=== PATIENT | female | born 1955 | race Caucasian/White ===

== ENCOUNTER 2024-05-18 09:03 | Outpatient (AMB) | payer OTHER, SELFPAY ==
--- NOTE | 2024-05-18 09:09 | A.OFFVIS_ITS ---
Vital Signs 05/18/24 09:21 Height 5 ft 5 in Weight 176 lb BMI 29.3 BP 160/70 H Blood Pressure Location Lt brachial Position Sitting Pulse 59 Pulse Oximetry (%) 100 Oxygen Delivery Method Room Air Intake Visit Reasons: Colonoscopy Screening Intake Note: Patient new consult for EGD/Colonoscopy screening. Patient cc: acid reflex with burning sensation, denies any other GI issues. Patient have a really bad experience with her last Colonoscopy done at [facility]. years ago. Reference Investigator Required: No Accompanied by: Self / Same As Patient Allergies monosodium glutamate Allergy (Unknown, Verified 05/18/24 09:09) Unknown povidone-iodine [From Betadine] Allergy (Unknown, Verified 05/18/24 09:09) Unknown Sulfa (Sulfonamide Antibiotics) Allergy (Unknown, Verified 05/18/24 09:09) Unknown HPI HPI Colonoscopy Screening: Details: 69 ear old? female with past medical history of hypertension, GERD is here today for pre colonoscopy screening.? Patient was sent to us by her PCP.? Patient reports she had colonoscopy many years ago and it was done at [facility]. Patient states that she did not had a very good experience. Patient states that she was awake and was asking to put down during the procedure. P veronika was CHIKI it and she is very nervous about going back. Patient reports acid reflux occasionally. Trying to avoid dietary triggers.? Negative for history of sleep apnea.? Denies any history of cardiac, renal, pulmonary, or hepatic disease.?? No history of infectious? diseases like hepatitis A, B, C, HIV or tuberculosis.? Patient is not on any anticoagulation [facility] Medical History (Updated 05/18/24 @ 19:18 by Ene Bryant [facility]) GERD (gastroesophageal reflux disease) HTN (hypertension) Surgical History (Updated 05/18/24 @ 09:41 by Sandra Dalton) History of foot surgery Hx of hemorrhoidectomy Hx of ovarian cystectomy Hx of colonoscopy Family History (Updated 05/18/24 @ 09:43 by Sandra Dalton) Mother HTN (hypertension) Brother HTN (hypertension) Alcoholic Father HTN (hypertension) Colon cancer Social History (Updated 05/18/24 @ 09:44 by Sandra Dalton) Household Members: Spouse Alcohol intake: current Alcohol intake frequency: holidays/special occasions only Patient Tobacco Use Status: Never used Tobacco Review of Systems Const Denies weight gain and Denies weight loss ENT Reports no additional complaints, Denies dysphagia and Denies odynophagia Card Reports no additional complaints Resp Reports no additional complaints GI Reports abdominal pain (Epigastric), Denies belching, Denies melena, Reports bloating, Denies change in bowel habits, Denies dysphagia, Denies excessive flatus, Denies dyspepsia, Reports heartburn, Denies diarrhea, Denies loose stools, Denies nausea, Denies odynophagia and Denies vomiting Reports no additional complaints Musc Reports no additional complaints Neuro Reports no additional complaints Psych Reports no additional complaints Endo Reports no additional complaints Physical Exam Vital Signs: Last Vital Signs Pulse 59 05/18/24 09:21 BP 160/70 H 05/18/24 09:21 Pulse Ox 100 05/18/24 09:21 Oxygen Delivery Method Room Air 05/18/24 09:21 BMI result Body Mass Index 29.3 Const General: healthy appearing, no acute distress and well developed Nutritional Appearance: well nourished Orientation/consciousness: patient oriented x3 Resp Effort & Inspection: normal respiratory effort, able to speak in complete sentences, no tracheal deviation and symmetric chest movement Auscultation: clear to auscultation bilaterally Cardio Rate: regular rate GI Inspection: Yes normal to inspection and No distended Palpation (GI): Soft to palpation, not firm, nontender and No hepatosplenomegaly present Auscultation: normal bowel sounds General: Yes no CVA tenderness Back/Spine/Pelvis Back: no CVA tenderness Skin General skin exam: elasticity normal, turgor normal and dry skin Neuro General: patient oriented x3 Psych Appearance: grossly normal Mental Status: mental status grossly normal Judgement: Good judgement present (Psych) Assessment & Plan Assessment & Plan (1) Screen for colon cancer: Code(s): Z12.11 - Encounter for screening for malignant neoplasm of colon (2) GERD (gastroesophageal reflux disease): Code(s): K21.9 - Gastro-esophageal reflux disease without esophagitis Category: Medical Qualifiers: Esophagitis presence: esophagitis presence not specified Qualified Code(s): K21.9 - Gastro-esophageal reflux disease without esophagitis Plan Patient denies any cardiac or respiratory symptoms.? Patient reports epigastric pain postprandially, occasional bloating and acid reflux. Patient will be sent for upper endoscopy to rule out gastritis, duodenitis, Barretts, H pylori. Current patient is not taking anything except for occasional Tums. Denies any issues with anesthesia in the past, however experience from the past colonoscopy. Patient feels like she was not put under anesthesia correctly because she was awake and was in lot of pain during the procedure.? Denies any history of sleep apnea.? No history infectious diseases in the past or present.? Not on any anticoagulation therapy.? No family or personal history of colon cancer or polyps.? Patient denies melena, hematochezia, unintentional weight loss or ribbon like stools.? Discussed at length the pre-procedure,? prep, diet & medications as well as what to expect prior, during and after the procedure.?? Stressed the importance of good bowel prep.? Recommended the use of Vaseline or Calmoseptine OTC & baby wipes with bowel movements to promote comfort.? ?Patient verbalizes understanding and agrees to plan of care.? She was given the opportunity to ask questions and all questions answered.? We will see her after the procedure. Orders: Orders [place] upper GI w Ba Swallow Today K21.9 - Gastro-esophageal reflux disease without esophagitis Medications: New famotidine (Pepcid) 20 mg PO BEDTIME PRN 30 tabs 3RF acid reflux K21.9 - Gastro-esophageal reflux disease without esophagitis polyethylene glycol 3350 (Miralax) As directed by gastroenterology department at [facility] 238 grams PO ONCE 238 grams 0RF Z12.11 - Encounter for screening for malignant neoplasm of colon famotidine (Pepcid) 20 mg PO BEDTIME PRN 30 tabs 3RF acid reflux K21.9 - Gastro-esophageal reflux disease without esophagitis polyethylene glycol 3350 (Miralax) As directed by gastroenterology department at [facility] 238 grams PO ONCE 238 grams 0RF Z12.11 - Encounter for screening for malignant neoplasm of colon bisacodyl (Dulcolax (bisacodyl)) take 4 tabs at noon the day before your colonoscopy 20 mg (4 x 5 mg) PO ONCE 1 day 4 tabs 0RF constipation Z12.11 - Encounter for screening for malignant neoplasm of colon bisacodyl (Dulcolax (bisacodyl)) take 4 tabs at noon the day before your colonoscopy 20 mg (4 x 5 mg) PO ONCE 1 day 4 tabs 0RF constipation Z12.11 - Encounter for screening for malignant neoplasm of colon Coding Level of Care Code New Pt Level 3 (20107) Diagnoses Screen for colon cancer Z12.11 Gastroesophageal reflux disease, unspecified whether esophagitis present K21.9 Esophagitis presence: esophagitis presence not specified Time Spent (min) 40 Comment 30 minutes spent with patient and additional 10 minutes spent reviewing her records
--- OUTSIDE RECORDS SUMMARY | 2024-05-18 09:13 | XMS_ITS | Continuity of Care Document ---
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 Name Role Phone Rene [employer]IN[employer], Roxanne Canada Primary Care Physicia n Encounter [facility] Date(s): 03/29/24 - 04/28/24 [email or web address] [address] [place] [address]- Encounter Type: Triage Allergies, Adverse Reactions, Alerts Substance Criticality Severity Reaction Reaction Severity Status sulfa drugs stomach upset Acti ve Betadine Active MSG Active Immunizations Given and Recorded Vaccine Date Status Refusal Reason SARS-CoV-2(COVID-19)mRNA-LNP vac([id number]) 12/17/22 Recorded zoster vaccine, inactivated 08/26/22 Recorded zoster vaccine, inactivated 04/06/22 Recorded pneumococcal 20-valent conjugate vaccine 12/23/21 Recorded influenza virus vaccine, inactivated 12/20/21 Pino rded influenza virus vaccine, inactivated 02/03/21 Pino rded [id number] bivalent booster vax 12/05/21 Recorded SARS-CoV-2 (COVID-19) mRNA-1273 vaccine 06/27/21 R ecorded SARS-CoV-2 (COVID-19) mRNA-1273 vaccine 01/21/21 R ecorded Medications hydrochlorothiazide-lisinopril 25 mg-20 mg oral tablet 1 tablet, By Mouth, Daily, # 30 tablet, 0 Refills, Maintenance, 03/31/24 8:45:00 [id number], TAKE 1 TABLET BY MOUTH DAILY Start Date: 1/2/25 Status: Ordered Quantity: 30.0 Unit: tablet Repeat number: 1 Metoprolol Succinate ER 50 mg oral tablet, extended release 50 mg, 1, tablet, By Mouth, Daily, # 30 tablet, Refills 3, Tot. Refills 3, Maintenance, 01/05/24 6:46:00 AM EDT, Route to Pharmacy Electronically, [id number], Partial fill upon patient request if the prescription is for a schedule II opioid drug. Start Date: 01/05/24 Status: Ordered Quantity: 30.0 Unit: tablet Repeat number: 4 Xiidra 5% ophthalmic solution 1 drops, Eyes, Both, 2 times a day, # 60 each, 0 Refills, Maintenance, 11/24/23 10:47:00 AM EDT, Solution, Partial fill upon patient request if the prescription is for a schedule II opioid drug. Start Date: 11/24/23 Status: Ordered Quantity: 60.0 Unit: each Repeat number: 1 Social History Social History Type Response Smoking Status Never (less than 100 in lifetime) entered on: 11/24/23 Sex Sex Representation Female (finding) Patient Care team information Care Team Personnel Name: Rene HA, Roxanne Canada Position: [facility] Associate Professional Member Role: PCP Address: [address] [place] [address]- Telecom: Care Team Related Persons Name: JORGE JANSEN Insurance Providers Guarantor name: ADOLFO JUSTYNA Health Plan Information #: 1 [facility] Member Number: NA Policy Number: NA Group Number: NA
--- OUTSIDE RECORDS SUMMARY | 2024-05-18 09:14 | XMS_ITS | Data Portability ---
Author Organization [facility], [employer] Address [address] [place] [address] Assessment No assessment recorded. Plan of Treatment Reminders Order Date Submit Date Provider Last Modified By Organization Details Last Modified Time Details Appointments None recorded. Lab urinalysis , dipstick 2018 019 In-House Results, For Internal Use Only, Do Not Delete/merge, [id number] 9 12:20:56 vitamin D, 25-hydroxy , total, serum 2018 019 [facility], [address] [place], [address], 9 10:02:00 urinalysis , dipstick 2017 018 In-House Results, For Internal Use Only, Do Not Delete/merge, [id number] 8 11:29:45 pap, LB + reflex HR HPV (16+18+45) 2017 018 OPAL Not available 8 08:30:41 fecal occult blood, stool 2017 018 In-House Results, For Internal Use Only, Do Not Delete/merge, [id number] 8 11:05:11 CBC w/ auto diff 2017 018 [facility], [address] [place], [address], 8 07:39:16 CMP, serum or plasma 2017 018 [facility], [address] [place], [address], 8 07:39:16 TSH, serum or plasma 2017 018 [facility], [address] [place], [address], 8 07:39:17 lipid panel, serum 2017 018 [facility], [address] [place], [address], 8 07:39:15 vitamin D, 25-hydroxy , total, serum 2017 018 [facility], [address] [place], [address], 8 07:39:17 Referral colonoscop y referral 2017 018 [email or web address] Not available 8 11:49:[address]/dietiti an referral 2017 [email or web address] Not available 8 12:14:43 Procedures None recorded. Surgeries None recorded. Imaging electrocar diogram 2018 [place] In-House Results, For Internal Use Only, Do Not Delete/merge, [id number] 9 10:07:49 Medication Orders lisinopril 20 mg-hydroch lorothiazi de 25 mg tablet 2018 019 INTERFACE [facility] #[id number], [address] [facility] [place], [id number], 9 11:49:56 metoprolol succinate ER 50 mg tablet,ext ended release 24 hr 2018 019 INTERFACE [facility] #[id number], [address] [place] [place], [id number], 9 11:49:55 Vitamin D2 1,250 mcg (50,000 unit) capsule 2018 019 INTERFACE [facility] #[id number], [address] [place], [place], [id number], 9 15:31:34 Patient TargetsNo targets recorded. Patient Instructions Encounter Date Encounter Id Patient Instructions Last Modified By Organization Details Last Modified Time 04/30/2016 [id number] Pt. already scheduled with General Surgery this Thursday for consultation for excisional biopsy of left breast. Pt. BP doing well, doesn't need refills yet. Just had physical in Jan 2016. F/u Jan 2017, sooner if problems. Not available 04/30/2016 17:59:27 08/11/2017 [id number] earwax blockage: care instructions Not available 08/11/2017 12:12:20 seborrheic keratosis: care instructions Not available 08/11/2017 11:05:11 Pt. doing well overall. Will call with pap and lab results. 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 Recommend pt schedule with Dr. Stout for mole removal if she chooses to have them removed. Pt. tolerated ear wax removal well. Otherwise, f/u 1 year, sooner if problems. Not available 08/11/2017 12:12:19 04/08/2018 [id number] Pt doing well overall, she is having bunionectomy as well as some other reconstruction of her right foot. She is cleared medically pending lab results, will fax clearance once labs available. F/u May for annual physical, sooner if problems. Not available 04/08/2018 15:40:06 02/04/2019 [id number] Pt doing well overall. She had fasting labs done in November, reviewed today. Will recheck vitamin D as it's been 2 months. Will send refill if needed. Healing well after right foot reconstruction, rehabilitation has been a long road, but she is happy that she had the procedure done. F/u 6 months for BP, sooner if problems. 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 Not Available In-House Results For Internal Use Only, Do Not Delete/merge, [id number] 02/04/2019 11:50:20 02/05/2002/04/2019 urina lysis , dipst ick UBG norm. Not Available In-House Results For Internal Use Only, Do Not Delete/merge, [id number] 02/04/2019 11:50:20 02/05/2002/04/2019 urina lysis , dipst ick MADONNA neg. Not Available In-House Results For Internal Use Only, Do Not Delete/merge, 02/04/2019 11:50:20 02/05/20 19 02/04/2019 urina lysis , dipst ick PRO neg. Not Available In-House Results For Internal Use Only, Do Not Delete/merge, [id number] 02/04/2019 11:50:20 02/05/2002/04/2019 urina lysis , dipst ick NIT negati ve Not Available In-House Results For Internal Use Only, Do Not Delete/merge, [id number] 02/04/2019 11:50:20 02/05/2002/04/2019 urina lysis , dipst ick KET neg. Not Available In-House Results For Internal Use Only, Do Not Delete/merge, [id number] 02/04/2019 11:50:20 02/05/20 19 02/04/2019 urina lysis , dipst ick ASC neg. Not Available In-House Results For Internal Use Only, Do Not Delete/merge, [id number] 02/04/2019 11:50:20 02/05/20 19 02/04/2019 urina lysis , dipst ick GLU neg. Not Available In-House Results For Internal Use Only, Do Not Delete/merge, 02/04/2019 11:50:20 02/05/20 19 02/04/2019 urina lysis , dipst ick PH 5 Not Available In-House Results For Internal Use Only, Do Not Delete/merge, 02/04/2019 11:50:20 02/05/20 19 02/04/2019 urina lysis , dipst ick SG 1.020 Not Available In-House Results For Internal Use Only, Do Not Delete/merge, 02/04/2019 11:50:20 02/05/20 19 02/04/2019 urina lysis , dipst ick NABIL neg. Not Available In-House Results For Internal Use Only, Do Not Delete/merge, 02/04/2019 11:50:20 08/12/19 18 08/11/2017 urina lysis , dipst ick Leukocytes Negati ve Not Available In-House Results For Internal Use Only, Do Not Delete/merge, 08/11/2017 11:18:22 08/12/19 18 08/11/2017 urina lysis , dipst ick Nitrite negati ve Not Available In-House Results For Internal Use Only, Do Not Delete/merge, 08/11/2017 11:18:22 08/12/19 18 08/11/2017 urina lysis , dipst ick Urobilinogen .2 Not Available In-Ho use Results For Internal Use Only, Do Not Delete/merge, 08/11/2017 11:18:22 08/12/19 18 08/11/2017 urina lysis , dipst ick Protein Negati ve Not Available In-House Results For Internal Use Only, Do Not Delete/merge, 08/11/2017 11:18:22 08/12/19 18 08/11/2017 urina lysis , dipst ick pH 6.0 Not Available In-House Results For Internal Use Only, Do Not Delete/merge, 08/11/2017 11:18:22 08/12/19 18 08/11/2017 urina lysis , dipst ick Blood Negati ve Not Available In-House Results For Internal Use Only, Do Not Delete/merge, 08/11/2017 11:18:22 08/12/19 18 08/11/2017 urina lysis , dipst ick Specific [place] 1.015 Not Available In-Patti se Results For Internal Use Only, Do Not Delete/merge, 08/11/2017 11:18:22 08/12/19 18 08/11/2017 urina lysis , dipst ick Ketone Negati ve Not Available In-House Results For Internal Use Only, Do Not Delete/merge, 08/11/2017 11:18:22 08/12/19 18 08/11/2017 urina lysis , dipst ick Bilirubin Negati ve Not Available In-House Results For Internal Use Only, Do Not Delete/merge, 08/11/2017 11:18:22 08/12/19 18 08/11/2017 urina lysis , dipst ick Glucose Negati ve Not Available In-House Results For Internal Use Only, Do Not Delete/merge, 08/11/2017 11:18:22 08/12/19 18 08/11/2017 fecal occul t blood , stool Occult Blood negati ve Not Available In-House Results For Internal Use Only, Do Not Delete/merge, 08/11/2017 11:03:43 08/12/19 18 08/12/2017 lipid panel , serum cholesterol, total 187 mg/dL <200 normal Not Available [facility] [address] [place], [address], 08/12/2017 07:39:15 08/12/19 18 08/12/2017 lipid panel , serum HDL cholesterol 55 mg/dL >50 normal Not Available [facility] [address] [address] [place], [address], 08/12/2017 07:39:15 08/12/19 18 08/12/2017 lipid panel , serum triglyceride s 176 mg/dL <150 high Not Available [facility] [address] [address] [place], [address], 08/12/2017 07:39:15 0508/12/2017 lipid panel , serum LDL-choleste rol 103 mg/dL _(param c) high Refer ence range : <100 Shayna able range <100 mg/dL for prima ry preve ntion ; <70 mg/dL for patie nts with CHD or diabe tic patie nts with > or = 2 CHD risk facto rs. LDL-C is now calcu lated using the Julienne n-Hop kins calcu jolly n, which is a valid ated novel metho d provi alexandrea maris r accur acy than the Fried frances equat ion in the estim ation of LDL-C . Julienne n SS et al. ENRIQUETA. 2013; 310(1 ): 2061- 2068 (http ://ed ucati onYodio. StarChase/f aq/FA Q164) Not Available [facility] [address] [address] [place], [address], 08/12/2017 07:39:15 08/12/1908/12/2017 lipid panel , serum chol/HDLC ratio 3.4 (calc ) <5.0 normal Not Available [facility] [address] [address] [place], [address], 08/12/2017 07:39:15 08/12/1908/12/2017 lipid panel , serum non HDL cholesterol 132 mg/dL _(param c) <130 high For patie nts with diabe rakan plus 1 major ASCVD risk facto r, treat ing to a non-H DL-C goal of <100 mg/dL (LDL- C of <70 mg/dL ) is consi dered a thera peuti c optio n. Not Available [facility] [address] [address], [place], [address], 08/12/2017 07:39:15 08/12/1908/12/2017 CMP, serum or plasm a glucose 94 mg/dL 65-99 normal Fasti ng refer ence inter mary Not Available [facility] [address] [address], [place], [address], 08/12/2017 07:39:16 08/12/19 18 08/12/2017 CMP, serum or plasm a urea nitrogen (BUN) 14 mg/dL 7-25 normal Not Available [address], [address], 08/12/2017 07:39:16 08/12/19 18 08/12/2017 CMP, serum or plasm a creatinine 0.75 mg/dL 0.50-0 .99 normal For patie nts >49 years of age, the refer ence limit for Creat inine is appro ximat angus 13% highe r for peopl e ident ified as Afric an-Am nany n. Not Available [address], [address], 08/12/2017 07:39:16 08/12/19 18 08/12/2017 CMP, serum or plasm a eGFR non-afr. serbian 85 mL/mi n/1.7 3m2 > or = 60 normal Not Available [address] [address] [place], [address], 08/12/2017 07:39:08/12/19 18 08/12/2017 CMP, serum or plasm a eGFR 98 mL/mi n/1.7 3m2 > or = 60 normal Not Available [address], [address], 08/12/2017 07:39:08/12/19 18 08/12/2017 CMP, serum or plasm a BUN/creatini ne ratio NOT APPLIC ABLE (calc ) 6-22 Not Available [address], [address], 08/12/2017 07:39:08/12/19 18 08/12/2017 CMP, serum or plasm a sodium 138 mmol/ L 135-14 6 normal Not Available [address], [address], 08/12/2017 07:39:16 08/12/19 18 08/12/2017 CMP, serum or plasm a potassium 3.5 mmol/ L 3.5-5. 3 normal Not Available [address], [address], 08/12/2017 07:39:16 08/12/19 18 08/12/2017 CMP, serum or plasm a chloride 100 mmol/ L 98-110 normal Not Available [address], [address], 08/12/2017 07:39:16 08/12/19 18 08/12/2017 CMP, serum or plasm a carbon dioxide 27 mmol/ L 18-29 normal Not Available [address], [address], 08/12/2017 07:39:08/12/19 18 08/12/2017 CMP, serum or plasm a calcium 9.5 mg/dL 8.6-10 .4 normal Not Available [address], [address], 08/12/2017 07:39:16 08/12/19 18 08/12/2017 CMP, serum or plasm a protein, total 6.8 g/dL 6.1-8. 1 normal Not Available [address], [address], 08/12/2017 07:39:08/12/1908/12/2017 CMP, serum or plasm a albumin 4.8 g/dL 3.6-5. 1 normal Not Available [facility] [address], [address], 08/12/2017 07:39:08/12/1908/12/2017 CMP, serum or plasm a globulin 2.0 g/dL_ (calc ) 1.9-3. 7 normal Not Available [address], [address], 08/12/2017 07:39:16 08/12/19 18 08/12/2017 CMP, serum or plasm a albumin/glob ulin ratio 2.4 (calc ) 1.0-2. 5 normal Not Available [address], [address], 08/12/2017 07:39:16 08/12/19 18 08/12/2017 CMP, serum or plasm a bilirubin, total 0.6 mg/dL 0.2-1. 2 normal Not Available [address], [address], 08/12/2017 07:39:08/12/19 18 08/12/2017 CMP, serum or plasm a alkaline phosphatase 67 U/L 33-130 normal Not Available [facility] [address], [address], 08/12/2017 07:39:16 08/12/19 18 08/12/2017 CMP, serum or plasm a AST 22 U/L 10-35 normal Not Available [address], [address], 08/12/2017 07:39:08/12/19 18 08/12/2017 CMP, serum or plasm a ALT 24 U/L 6-29 normal Not Available [address], [address], 08/12/2017 07:39:08/12/19 18 08/12/2017 CBC w/ auto diff white blood cell count 3.7 thous and/u L 3.8-10 .8 low Not Available [address], [address], 08/12/2017 07:39:16 08/12/19 18 08/12/2017 CBC w/ auto diff red blood cell count 5.05 ajay on/uL 3.96-5 .31 normal Not Available [facility] [address], [address], 08/12/2017 07:39:16 08/12/19 18 08/12/2017 CBC w/ auto diff hemoglobin 14.6 g/dL 12.0-1 6.3 normal Not Available [address], [address], 08/12/2017 07:39:16 08/12/19 18 08/12/2017 CBC w/ auto diff hematocrit 42.3 % 36.8-4 9.5 normal Not Available [address], [address], 08/12/2017 07:39:16 08/12/19 18 08/12/2017 CBC w/ auto diff MCV 83.8 fL 80.0-1 00.0 normal Not Available [address], [address], 08/12/2017 07:39:16 08/12/19 18 08/12/2017 CBC w/ auto diff MCH 28.9 pg 27.0-3 3.0 normal Not Available [address], [address], 08/12/2017 07:39:16 08/12/19 18 08/12/2017 CBC w/ auto diff MCHC 34.5 g/dL 32.0-3 6.0 normal Not Available [address], [address], 08/12/2017 07:39:16 08/12/19 18 08/12/2017 CBC w/ auto diff RDW 14.1 % 11.0-1 5.0 normal Not Available [address], [address], 08/12/2017 07:39:16 08/12/19 18 08/12/2017 CBC w/ auto diff platelet count 247 thous and/u L 140-40 0 normal Not Available [address], [address], 08/12/2017 07:39:16 08/12/19 18 08/12/2017 CBC w/ auto diff MPV 9.3 fL 7.5-12 .5 normal Not Available [address], [address], 08/12/2017 07:39:16 08/12/19 18 08/12/2017 CBC w/ auto diff absolute neutrophils 2264 cells /uL 1500-7 800 normal Not Available [address], [address], 08/12/2017 07:39:16 08/12/19 18 08/12/2017 CBC w/ auto diff absolute lymphocytes 1084 cells /uL 850-39 00 normal Not Available [address], [address], 08/12/2017 07:39:16 08/12/19 18 08/12/2017 CBC w/ auto diff absolute monocytes 252 cells /uL 200-95 0 normal Not Available [address], [address], 08/12/2017 07:39:16 08/12/19 18 08/12/2017 CBC w/ auto diff absolute eosinophils 89 cells /uL 15-500 normal Not Available [address], [address], 08/12/2017 07:39:16 08/12/19 18 08/12/2017 CBC w/ auto diff absolute basophils 11 cells /uL 0-200 normal Not Available [address], [address], 08/12/2017 07:39:16 08/12/19 18 08/12/2017 CBC w/ auto diff neutrophils 61.2 % normal Not Available [address], [address], 08/12/2017 07:39:16 08/12/19 18 08/12/2017 CBC w/ auto diff lymphocytes 29.3 % normal Not Available [facility] [address], [address], 08/12/2017 07:39:16 08/12/19 18 08/12/2017 CBC w/ auto diff monocytes 6.8 % normal Not Available [facility] [address], [address], 08/12/2017 07:39:16 08/12/19 18 08/12/2017 CBC w/ auto diff eosinophils 2.4 % normal Not Available [address], [address], 08/12/2017 07:39:16 08/12/19 18 08/12/2017 CBC w/ auto diff basophils 0.3 % normal Not Available [address], [address], 08/12/2017 07:39:16 08/12/19 18 08/12/2017 TSH, serum or plasm a TSH 1.16 mIU/L 0.40-4 .50 normal Not Available [address], [address], 08/12/2017 07:39:17 08/12/19 18 08/12/2017 vitam in D, 25-hy droxy , total , serum vitamin D,25-oh,tota l,ia 16 NG/mL 30-100 low Vitam in D Statu s 25-OH Vitam in D: Defic iency : <20 ng/mL Insuf ficie ncy: 20 - 29 ng/mL Optim al: > or = 30 ng/mL For 25-OH Vitam in D testi ng on patie nts on D2-buckley pplem entat ion and patie nts for whom quant itati on of D2 and D3 fract ions is requi red, the [facility] Assur eD(TM ) 25-OH VIT D, (D2,D 3), LC/MS /MS is recom fab d: order code 77813 (lilian ents >2yrs ). For more randallr lorin carolina on this test, go to: http: //jaime carolina.que stdia gnost ics.c om/fa q/FAQ 163 (This link is being provi ded for infor lorin nal/e ducat ional purpo ses only. ) Not Available [facility] [address] [address], [place], [address], 08/12/2017 07:39:17 08/12/19 18 08/11/2017 pap, LB + refle x HR HPV (16+1 8+45) thinprep Pap Negati ve normal PAP TEST INTER PRETA TION NEGAT KIRSTIN FOR INTRA EPITH ELIJEROME [place] OR DARIEL FU Site: Unspe cifie d Speci men: ThinP rep Adequ acy: * Satis facto ry for evalu ation ; endoc ervic al or metap lasti c cells prese nt. Comme nts: * One ThinP rep slide was scree shakira by the ThinP rep Imagi eduard woody along with an addit ional manua l rescr eenin g by a cytot echno logis t and/o r patho logis t. Cytot echno logis t: Patch in [facility], CT( CP) The Pap test is a scree eula test, with inter preta tion subje ct to both false negat kirstin and false posit kirstin resul ts. Recom mend clini param corre latio n. End of t Not Available [facility] (Lab) [address] [facility] [address] [place] [address], [address], 08/13/2017 08:30:22 08/12/19 18 08/11/2017 pap, LB + refle x HR HPV (16+1 8+45) high-risk HPV type 16 Negati ve Not Available [facility] (Lab) [address] [facility] [address], [place], [address], 08/13/2017 08:30:22 08/12/19 18 08/11/2017 pap, LB + refle x HR HPV (16+1 8+45) high-risk HPV type 18 Negati ve Not Available [facility] (Lab) [address] [facility] [address], [place], [address], 08/13/2017 08:30:22 08/12/19 18 08/11/2017 pap, LB + refle x HR HPV (16+1 8+45) other high-risk HPV types Negati ve (Othe r High Risk HPV types encom pass one or more of the follo wing 12 high risk HPV types : 31, 33, 35, 39, 45, 51, 52, 56, 58, 59, 66, 68) Dom HPV Test by [employer] is a quali tativ e in vitro assay that uses targe t DNA ampli ficat ion and nucle ic acid hybri dizat ion for the detec tion of 14 high- risk HPV types : 16, 18, 31, 33, 35, 39, 45, 51, 52, 56, 58, 59, 66, 68. This test is FDA appro bryan for ThinP rep speci mens and SureP ath speci mens. The perfo rmanc e for all speci men types has been valid ated by [facility] . Expec luna resul t for HR HPV test is negat kirstin. Not Available [facility] (Lab) [address] [facility] [address], [place], [address], 08/13/2017 08:30:22 08/28/19 18 08/28/2017 CBC w/ auto diff white blood cell count 5.4 thous and/u L 3.8-10 .8 normal Not Available [facility] [address] [place], [address], 08/28/2017 08:12:26 08/28/19 18 08/28/2017 CBC w/ auto diff red blood cell count 4.85 ajay on/uL 3.96-5 .31 normal Not Available [facility] [address] [place], [address], 08/28/2017 08:12:26 08/28/19 18 08/28/2017 CBC w/ auto diff hemoglobin 14.1 g/dL 12.0-1 6.3 normal Not Available [address], [address], 08/28/2017 08:12:26 08/28/19 18 08/28/2017 CBC w/ auto diff hematocrit 41.8 % 36.8-4 9.5 normal Not Available [address], [address], 08/28/2017 08:12:26 08/28/19 18 08/28/2017 CBC w/ auto diff MCV 86.2 fL 80.0-1 00.0 normal Not Available [address], [address], 08/28/2017 08:12:08/28/19 18 08/28/2017 CBC w/ auto diff MCH 29.1 pg 27.0-3 3.0 normal Not Available [address], [address], 08/28/2017 08:12:26 08/28/19 18 08/28/2017 CBC w/ auto diff MCHC 33.7 g/dL 32.0-3 6.0 normal Not Available [address], [address], 08/28/2017 08:12:08/28/19 18 08/28/2017 CBC w/ auto diff RDW 14.2 % 11.0-1 5.0 normal Not Available [address], [address], 08/28/2017 08:12:08/28/19 18 08/28/2017 CBC w/ auto diff platelet count 249 thous and/u L 140-40 0 normal Not Available [address], [address], 08/28/2017 08:12:26 08/28/19 18 08/28/2017 CBC w/ auto diff MPV 9.1 fL 7.5-12 .5 normal Not Available [address] [address] [place], [address], 08/28/2017 08:12:26 08/28/19 18 08/28/2017 CBC w/ auto diff absolute neutrophils 3456 cells /uL 1500-7 800 normal Not Available [address] [place], [address], 08/28/2017 08:12:26 08/28/19 18 08/28/2017 CBC w/ auto diff absolute lymphocytes 1555 cells /uL 850-39 00 normal Not Available [address], [address], 08/28/2017 08:12:26 08/28/19 18 08/28/2017 CBC w/ auto diff absolute monocytes 259 cells /uL 200-95 0 normal Not Available [address], [address], 08/28/2017 08:12:26 08/28/19 18 08/28/2017 CBC w/ auto diff absolute eosinophils 108 cells /uL 15-500 normal Not Available [address], [address], 08/28/2017 08:12:26 08/28/19 18 08/28/2017 CBC w/ auto diff absolute basophils 22 cells /uL 0-200 normal Not Available [address], [address], 08/28/2017 08:12:26 08/28/19 18 08/28/2017 CBC w/ auto diff neutrophils 64 % normal Not Available [address], [address], 08/28/2017 08:12:26 08/28/19 18 08/28/2017 CBC w/ auto diff lymphocytes 28.8 % normal Not Available [address] [place], [address], 08/28/2017 08:12:26 08/28/19 18 08/28/2017 CBC w/ auto diff monocytes 4.8 % normal Not Available [facility] [address] [address] [place], [address], 08/28/2017 08:12:26 08/28/19 18 08/28/2017 CBC w/ auto diff eosinophils 2.0 % normal Not Available [facility] [address] [address] [place], [address], 08/28/2017 08:12:26 08/28/19 18 08/28/2017 CBC w/ auto diff basophils 0.4 % normal Not Available [facility] [address] [address] [place], [address], 08/28/2017 08:12:26 11/05/19 18 11/05/2017 vitam in D, 25-hy droxy , total , serum vitamin D,25-oh,tota l,ia 34 NG/mL 30-100 normal Vitam in D Statu s 25-OH Vitam in D: Defic iency : <20 ng/mL Insuf ficie ncy: 20 - 29 ng/mL Optim al: > or = 30 ng/mL For 25-OH Vitam in D testi ng on patie nts on D2-buckley pplem entat ion and patie nts for whom quant itati on of D2 and D3 fract ions is requi red, the [facility] Assur eD(TM ) 25-OH VIT D, (D2,D 3), LC/MS /MS is recom fab d: order code 64627 (lilian ents >2yrs ). For more infor lorin carolina on this test, go to: http: //jaime meeks ics.c om/fa q/FAQ 163 (This link is being provi ded for infor lorin nal/e ducat ional purpo ses only. ) Not Available [address] [address] [place], [address], 11/05/2017 09:12:01 04/08/1904/09/2018 lipid panel , serum cholesterol, total 177 mg/dL <200 normal Not Available [address] [address] [place], [address], 04/09/2018 07:58:26 04/08/1904/09/2018 lipid panel , serum HDL cholesterol 56 mg/dL >50 normal Not Available [facility] [address] [address] [place], [address], 04/09/2018 07:58:26 04/08/1904/09/2018 lipid panel , serum triglyceride s 111 mg/dL <150 normal Not Available [facility] [address] [address] [place], [address], 04/09/2018 07:58:26 04/08/1904/09/2018 lipid panel , serum LDL-choleste rol 100 mg/dL _(param c) high Refer ence range : <100 Shayna able range <100 mg/dL for prima ry preve ntion ; <70 mg/dL for patie nts with CHD or diabe tic patie nts with > or = 2 CHD risk facto rs. LDL-C is now calcu lated using the Julienne carolina-[facility] hari azevedo n, which is a valid ated novel carlos briscoe accur acy than the Fried frances equat ion in the estim ation of LDL-C . Julienne carolina SS et al. ENRIQUETA. 2013; 310(1 9): 2061- 2068 (http ://ed ucati on.Qu Edilma looney tics. com/f aq/FA Q164) Not Available [facility] [address] [place], [address], 04/09/2018 07:58:26 04/08/1904/09/2018 lipid panel , serum chol/HDLC ratio 3.2 (calc ) <5.0 normal Not Available [address] [address] [place], [address], 04/09/2018 07:58:26 04/08/1904/09/2018 lipid panel , serum non HDL cholesterol 121 mg/dL _(param c) <130 normal For patie nts with diabe rakan plus 1 major ASCVD risk facto r, treat ing to a non-H DL-C goal of <100 mg/dL (LDL- C of <70 mg/dL ) is yobani moore optio n. Not Available [address] [address] [place], [address], 04/09/2018 07:58:26 04/08/1904/09/2018 CMP, serum or plasm a glucose 92 mg/dL 65-99 normal Fasti ng refer ence inter mary Not Available [address], [address], 04/09/2018 07:58:27 04/08/1904/09/2018 CMP, serum or plasm a urea nitrogen (BUN) 19 mg/dL 7-25 normal Not Available [address] [address] [place], [address], 04/09/2018 07:58:27 04/08/1904/09/2018 CMP, serum or plasm a creatinine 0.73 mg/dL 0.50-0 .99 normal For patie nts >49 years of age, the refer ence limit for Creat inine is appro ximat angus 13% highe r for peopl e ident ified as Afric an-Am nany n. Not Available [address] [address] [place], [address], 04/09/2018 07:58:27 04/08/1904/09/2018 CMP, serum or plasm a eGFR non-afr. serbian 87 mL/mi n/1.7 3m2 > or = 60 normal Not Available [address] [address] [place], [address], 04/09/2018 07:58:27 04/08/1904/09/2018 CMP, serum or plasm a eGFR 101 mL/mi n/1.7 3m2 > or = 60 normal Not Available [address], [address], 04/09/2018 07:58:27 04/08/1904/09/2018 CMP, serum or plasm a BUN/creatini ne ratio NOT APPLIC ABLE (calc ) 6-22 Not Available [address], [address], 04/09/2018 07:58:27 04/08/1904/09/2018 CMP, serum or plasm a sodium 138 mmol/ L 135-14 6 normal Not Available [address], [address], 04/09/2018 07:58:27 04/08/1904/09/2018 CMP, serum or plasm a potassium 3.3 mmol/ L 3.5-5. 3 low Not Available [address], [address], 04/09/2018 07:58:27 04/08/1904/09/2018 CMP, serum or plasm a chloride 97 mmol/ L 98-110 low Not Available [address], [address], 04/09/2018 07:58:27 04/08/1904/09/2018 CMP, serum or plasm a carbon dioxide 29 mmol/ L 18-30 normal Not Available [address], [address], 04/09/2018 07:58:27 04/08/1904/09/2018 CMP, serum or plasm a calcium 9.5 mg/dL 8.6-10 .4 normal Not Available [address], [address], 04/09/2018 07:58:27 04/08/1904/09/2018 CMP, serum or plasm a protein, total 6.9 g/dL 6.1-8. 1 normal Not Available [address] [address] [place], [address], 04/09/2018 07:58:27 04/08/1904/09/2018 CMP, serum or plasm a albumin 4.7 g/dL 3.6-5. 1 normal Not Available [address], [address], 04/09/2018 07:58:27 04/08/1904/09/2018 CMP, serum or plasm a globulin 2.2 g/dL_ (calc ) 1.9-3. 7 normal Not Available [address], [address], 04/09/2018 07:58:27 04/08/1904/09/2018 CMP, serum or plasm a albumin/glob ulin ratio 2.1 (calc ) 1.0-2. 5 normal Not Available [address], [address], 04/09/2018 07:58:27 04/08/1904/09/2018 CMP, serum or plasm a bilirubin, total 0.7 mg/dL 0.2-1. 2 normal Not Available [address], [address], 04/09/2018 07:58:27 04/08/1904/09/2018 CMP, serum or plasm a alkaline phosphatase 68 U/L 33-130 normal Not Available [facility] [address] [address] [place], [address], 04/09/2018 07:58:27 04/08/1904/09/2018 CMP, serum or plasm a AST 19 U/L 10-35 normal Not Available [address] [address] [place], [address], 04/09/2018 07:58:27 04/08/1904/09/2018 CMP, serum or plasm a ALT 18 U/L 6-29 normal Not Available [address], [address], 04/09/2018 07:58:27 04/08/1904/09/2018 CBC w/ auto diff white blood cell count 4.6 thous and/u L 3.8-10 .8 normal Not Available [address], [address], 04/09/2018 07:58:27 04/08/1904/09/2018 CBC w/ auto diff red blood cell count 5.03 ajay on/uL 3.96-5 .31 normal Not Available [address], [address], 04/09/2018 07:58:27 04/08/1904/09/2018 CBC w/ auto diff hemoglobin 14.2 g/dL 12.0-1 6.3 normal Not Available [address], [address], 04/09/2018 07:58:27 04/08/1904/09/2018 CBC w/ auto diff hematocrit 42.4 % 36.8-4 9.5 normal Not Available [address], [address], 04/09/2018 07:58:27 04/08/1904/09/2018 CBC w/ auto diff MCV 84.3 fL 80.0-1 00.0 normal Not Available [address], [address], 04/09/2018 07:58:27 04/08/1904/09/2018 CBC w/ auto diff MCH 28.2 pg 27.0-3 3.0 normal Not Available [address], [address], 04/09/2018 07:58:27 04/08/1904/09/2018 CBC w/ auto diff MCHC 33.5 g/dL 32.0-3 6.0 normal Not Available [address], [address], 04/09/2018 07:58:27 04/08/1904/09/2018 CBC w/ auto diff RDW 13.8 % 11.0-1 5.0 normal Not Available [address], [address], 04/09/2018 07:58:27 04/08/1904/09/2018 CBC w/ auto diff platelet count 244 thous and/u L 140-40 0 normal Not Available [address], [address], 04/09/2018 07:58:27 04/08/1904/09/2018 CBC w/ auto diff MPV 9.7 fL 7.5-12 .5 normal Not Available [address], [address], 04/09/2018 07:58:27 04/08/1904/09/2018 CBC w/ auto diff absolute neutrophils 2535 cells /uL 1500-7 800 normal Not Available [address], [address], 04/09/2018 07:58:27 04/08/1904/09/2018 CBC w/ auto diff absolute lymphocytes 1601 cells /uL 850-39 00 normal Not Available [address], [address], 04/09/2018 07:58:27 04/08/1904/09/2018 CBC w/ auto diff absolute monocytes 368 cells /uL 200-95 0 normal Not Available [address], [address], 04/09/2018 07:58:27 04/08/1904/09/2018 CBC w/ auto diff absolute eosinophils 78 cells /uL 15-500 normal Not Available [address] [address] [place], [address], 04/09/2018 07:58:27 04/08/1904/09/2018 CBC w/ auto diff absolute basophils 18 cells /uL 0-200 normal Not Available [address] [place], [address], 04/09/2018 07:58:27 04/08/1904/09/2018 CBC w/ auto diff neutrophils 55.1 % normal Not Available [address] [address] [place], [address], 04/09/2018 07:58:27 04/08/1904/09/2018 CBC w/ auto diff lymphocytes 34.8 % normal Not Available [address] [address] [place], [address], 04/09/2018 07:58:27 04/08/1904/09/2018 CBC w/ auto diff monocytes 8.0 % normal Not Available [address] [place], [address], 04/09/2018 07:58:27 04/08/1904/09/2018 CBC w/ auto diff eosinophils 1.7 % normal Not Available [address] [address] [place], [address], 04/09/2018 07:58:27 04/08/1904/09/2018 CBC w/ auto diff basophils 0.4 % normal Not Available [address] [address] [place], [address], 04/09/2018 07:58:27 04/09/1904/09/2018 elect rocar diogr am Rhythm Hernan SR Not Available In-House Results For Internal Use Only, Do Not Delete/merge, [id number] 04/08/2018 15:21:53 04/09/1904/09/2018 elect rocar diogr am Orestes WNL Not Available In-House Results For Internal Use Only, Do Not Delete/merge, [id number] 04/08/2018 15:21:53 04/09/1904/09/2018 elect florencio burnsgr am NC 180ms Not Available In-House Results For Internal Use Only, Do Not Delete/merge, [id number] 04/08/2018 15:21:53 04/09/19 19 04/09/2018 elect florencio burnsgr am QRS 92ms Not Available In-House Results For Internal Use Only, Do Not Delete/merge, [id number] 04/08/2018 15:21:53 04/09/1904/09/2018 elect rocclaude diogr am R Wave Progression Normal Not Available In-H ouse Results For Internal Use Only, Do Not Delete/merge, [id number] 04/08/2018 15:21:53 04/09/1904/09/2018 elect florencio burnsgr am Overall Interpretati on normal Not Available In-Patti se Results For Internal Use Only, Do Not Delete/merge, [id number] 04/08/2018 15:21:53 04/12/1904/13/2018 BMP, serum or plasm a glucose 100 mg/dL 65-99 high Fasti ng refer ence inter mary For someo ne witho ut known diabe rakan, a gluco se value betwe en 100 and 125 mg/dL is consi stent with predi abete s and shoul d be confi rmed with a follo w-up test. Not Available [facility] [address] [place], [address], 04/13/2018 09:32:48 04/12/1904/13/2018 BMP, serum or plasm a urea nitrogen (BUN) 21 mg/dL 7-25 normal Not Available [facility] [address] [place], [address], 04/13/2018 09:32:48 04/12/1904/13/2018 BMP, serum or plasm a creatinine 0.74 mg/dL 0.50-0 .99 normal For patie nts >49 years of age, the refer ence limit for Creat inine is appro ximat angus 13% highe r for peopl e ident ified as Afric an-Am nany n. Not Available [address] [address] [place], [address], 04/13/2018 09:32:48 04/12/1904/13/2018 BMP, serum or plasm a eGFR non-afr. serbian 86 mL/mi n/1.7 3m2 > or = 60 normal Not Available [facility] [address] [address] [place], [address], 04/13/2018 09:32:48 04/12/1904/13/2018 BMP, serum or plasm a eGFR 99 mL/mi n/1.7 3m2 > or = 60 normal Not Available [address] [address] [place], [address], 04/13/2018 09:32:48 04/12/1904/13/2018 BMP, serum or plasm a BUN/creatini ne ratio NOT APPLIC ABLE (calc ) 6-22 Not Available [address] [address] [place], [address], 04/13/2018 09:32:48 04/12/1904/13/2018 BMP, serum or plasm a sodium 138 mmol/ L 135-14 6 normal Not Available [facility] [address] [address] [place], [address], 04/13/2018 09:32:48 04/12/1904/13/2018 BMP, serum or plasm a potassium 3.8 mmol/ L 3.5-5. 3 normal Not Available [facility] [address] [address] [place], [address], 04/13/2018 09:32:48 04/12/1904/13/2018 BMP, serum or plasm a chloride 101 mmol/ L 98-110 normal Not Available [address] [address] [place], [address], 04/13/2018 09:32:48 04/12/1904/13/2018 BMP, serum or plasm a carbon dioxide 28 mmol/ L 18-30 normal Not Available [address], [address], 04/13/2018 09:32:48 04/12/1904/13/2018 BMP, serum or plasm a calcium 9.3 mg/dL 8.6-10 .4 normal Not Available [address], [address], 04/13/2018 09:32:48 12/04/1912/04/2018 lipid panel , serum cholesterol, total 182 mg/dL <200 normal Not Available [address], [address], 12/04/2018 09:31:36 12/04/1912/04/2018 lipid panel , serum HDL cholesterol 56 mg/dL >50 normal Not Available [address], [address], 12/04/2018 09:31:36 12/04/1912/04/2018 lipid panel , serum triglyceride s 167 mg/dL <150 high Not Available [address], [address], 12/04/2018 09:31:36 12/04/1912/04/2018 lipid panel , serum LDL-choleste rol 99 mg/dL _(param c) normal Refer ence range : <100 Shayna able range <100 mg/dL for prima ry preve ntion ; <70 mg/dL for patie nts with CHD or diabe tic patie nts with > or = 2 CHD risk facto rs. LDL-C is now calcu lated using the Julienne n-Hop kins calcu latio n, which is a valid ated novel metho d provi ding maris r accur acy than the Fried frances equat ion in the estim ation of LDL-C . Julienne carolina SS et al. ENRIQUETA. 2013; 310(2 6): 2061- 2068 (http ://ed ucati on.Qu Edilma diazSentiOnes. com/f aq/FA Q164) Not Available [address], [address], 12/04/2018 09:31:36 12/04/1912/04/2018 lipid panel , serum chol/HDLC ratio 3.3 (calc ) <5.0 normal Not Available [address] [place], [address], 12/04/2018 09:31:36 12/04/1912/04/2018 lipid panel , serum non HDL cholesterol 126 mg/dL _(param c) <130 normal For patie nts with diabe rakan plus 1 major ASCVD risk facto r, treat ing to a non-H DL-C goal of <100 mg/dL (LDL- C of <70 mg/dL ) is consi dered a thera peuti c optio n. Not Available [address], [address], 12/04/2018 09:31:36 12/04/1912/04/2018 BMP, serum or plasm a glucose 95 mg/dL 65-99 normal Fasti ng refer ence inter mary Not Available [address], [address], 12/04/2018 09:31:37 12/04/1912/04/2018 BMP, serum or plasm a urea nitrogen (BUN) 11 mg/dL 7-25 normal Not Available [address] [place], [address], 12/04/2018 09:31:37 12/04/1912/04/2018 BMP, serum or plasm a creatinine 0.75 mg/dL 0.50-0 .99 normal For patie nts >49 years of age, the refer ence limit for Creat inine is appro ximat angus 13% highe r for peopl e ident ified as Afric an-Am nany n. Not Available [address] [address] [place], [address], 12/04/2018 09:31:37 12/04/1912/04/2018 BMP, serum or plasm a eGFR non-afr. serbian 84 mL/mi n/1.7 3m2 > or = 60 normal Not Available [facility] [address] [address] [place], [address], 12/04/2018 09:31:37 12/04/1912/04/2018 BMP, serum or plasm a eGFR 98 mL/mi n/1.7 3m2 > or = 60 normal Not Available [facility] [address], [address], 12/04/2018 09:31:37 12/04/1912/04/2018 BMP, serum or plasm a BUN/creatini ne ratio NOT APPLIC ABLE (calc ) 6-22 Not Available [address] [address] [place], [address], 12/04/2018 09:31:37 12/04/1912/04/2018 BMP, serum or plasm a sodium 139 mmol/ L 135-14 6 normal Not Available [address] [address] [place], [address], 12/04/2018 09:31:37 12/04/1912/04/2018 BMP, serum or plasm a potassium 3.6 mmol/ L 3.5-5. 3 normal Not Available [facility] [address] [address] [place], [address], 12/04/2018 09:31:37 12/04/1912/04/2018 BMP, serum or plasm a chloride 100 mmol/ L 98-110 normal Not Available [facility] [address] [address] [place], [address], 12/04/2018 09:31:37 12/04/1912/04/2018 BMP, serum or plasm a carbon dioxide 29 mmol/ L 18-30 normal Not Available [address], [address], 12/04/2018 09:31:37 12/04/1912/04/2018 BMP, serum or plasm a calcium 9.6 mg/dL 8.6-10 .4 normal Not Available [address], [address], 12/04/2018 09:31:37 12/04/1912/04/2018 hepat ic funct ion panel , serum protein, total 7.0 g/dL 6.1-8. 1 normal Not Available [address], [address], 12/04/2018 09:31:37 12/04/1912/04/2018 hepat ic funct ion panel , serum albumin 4.8 g/dL 3.6-5. 1 normal Not Available [address], [address], 12/04/2018 09:31:37 12/04/1912/04/2018 hepat ic funct ion panel , serum globulin 2.2 g/dL_ (calc ) 1.9-3. 7 normal Not Available [address], [address], 12/04/2018 09:31:37 12/04/1912/04/2018 hepat ic funct ion panel , serum albumin/glob ulin ratio 2.2 (calc ) 1.0-2. 5 normal Not Available [address], [address], 12/04/2018 09:31:37 12/04/1912/04/2018 hepat ic funct ion panel , serum bilirubin, total 0.6 mg/dL 0.2-1. 2 normal Not Available [address], [address], 12/04/2018 09:31:37 12/04/1912/04/2018 hepat ic funct ion panel , serum bilirubin, direct 0.1 mg/dL < or = 0.2 normal Not Available [address], [address], 12/04/2018 09:31:37 12/04/1912/04/2018 hepat ic funct ion panel , serum bilirubin, indirect 0.5 mg/dL _(param c) 0.2-1. 2 normal Not Available [address], [address], 12/04/2018 09:31:37 12/04/1912/04/2018 hepat ic funct ion panel , serum alkaline phosphatase 77 U/L 33-130 normal Not Available [address], [address], 12/04/2018 09:31:37 12/04/1912/04/2018 hepat ic funct ion panel , serum AST 22 U/L 10-35 normal Not Available [address], [address], 12/04/2018 09:31:37 12/04/1912/04/2018 hepat ic funct ion panel , serum ALT 26 U/L 6-29 normal Not Available [address], [address], 12/04/2018 09:31:37 12/04/1912/04/2018 CBC w/ auto diff white blood cell count 4.1 thous and/u L 3.8-10 .8 normal Not Available [address], [address], 12/04/2018 09:31:38 12/04/1912/04/2018 CBC w/ auto diff red blood cell count 4.81 ajay on/uL 3.96-5 .31 normal Not Available [address], [address], 12/04/2018 09:31:38 12/04/1912/04/2018 CBC w/ auto diff hemoglobin 13.6 g/dL 12.0-1 6.3 normal Not Available [address], [address], 12/04/2018 09:31:38 12/04/1912/04/2018 CBC w/ auto diff hematocrit 42.4 % 36.8-4 9.5 normal Not Available [address], [address], 12/04/2018 09:31:38 12/04/1912/04/2018 CBC w/ auto diff MCV 88.1 fL 80.0-1 00.0 normal Not Available [address], [address], 12/04/2018 09:31:38 12/04/1912/04/2018 CBC w/ auto diff MCH 28.3 pg 27.0-3 3.0 normal Not Available [address], [address], 12/04/2018 09:31:38 12/04/1912/04/2018 CBC w/ auto diff MCHC 32.1 g/dL 32.0-3 6.0 normal Not Available [address], [address], 12/04/2018 09:31:38 12/04/1912/04/2018 CBC w/ auto diff RDW 14.4 % 11.0-1 5.0 normal Not Available [address], [address], 12/04/2018 09:31:38 12/04/1912/04/2018 CBC w/ auto diff platelet count 235 thous and/u L 140-40 0 normal Not Available [address] [place], [address], 12/04/2018 09:31:38 12/04/1912/04/2018 CBC w/ auto diff MPV 9.5 fL 7.5-12 .5 normal Not Available [address], [address], 12/04/2018 09:31:38 12/04/1912/04/2018 CBC w/ auto diff absolute neutrophils 2333 cells /uL 1500-7 800 normal Not Available [address], [address], 12/04/2018 09:31:38 12/04/1912/04/2018 CBC w/ auto diff absolute lymphocytes 1402 cells /uL 850-39 00 normal Not Available [address], [address], 12/04/2018 09:31:38 12/04/1912/04/2018 CBC w/ auto diff absolute monocytes 262 cells /uL 200-95 0 normal Not Available [address], [address], 12/04/2018 09:31:38 12/04/1912/04/2018 CBC w/ auto diff absolute eosinophils 82 cells /uL 15-500 normal Not Available [address], [address], 12/04/2018 09:31:38 12/04/1912/04/2018 CBC w/ auto diff absolute basophils 21 cells /uL 0-200 normal Not Available [address], [address], 12/04/2018 09:31:38 12/04/1912/04/2018 CBC w/ auto diff neutrophils 56.9 % normal Not Available [address], [address], 12/04/2018 09:31:38 12/04/1912/04/2018 CBC w/ auto diff lymphocytes 34.2 % normal Not Available [address], [address], 12/04/2018 09:31:38 12/04/1912/04/2018 CBC w/ auto diff monocytes 6.4 % normal Not Available [address], [address], 12/04/2018 09:31:38 12/04/1912/04/2018 CBC w/ auto diff eosinophils 2.0 % normal Not Available [address], [address], 12/04/2018 09:31:38 12/04/1912/04/2018 CBC w/ auto diff basophils 0.5 % normal Not Available [address], [address], 12/04/2018 09:31:38 12/04/1912/04/2018 TSH, serum or plasm a TSH 2.74 mIU/L 0.40-4 .50 normal Not Available [address], [address], 12/04/2018 09:31:38 12/04/1912/04/2018 vitam in D, 25-hy droxy , total , serum vitamin D,25-oh,tota l,ia 25 NG/mL 30-100 low Vitam in D Statu s 25-OH Vitam in D: Defic iency : <20 ng/mL Insuf ficie ncy: 20 - 29 ng/mL Optim al: > or = 30 ng/mL For 25-OH Vitam in D testi ng on patie nts on D2-buckley pplem entat ion and patie nts for whom quant itati on of D2 and D3 fract ions is requi red, the [facility](TM ) 25-OH VIT D, (D2,D 3), LC/MS /MS is recom fab d: order code 74999 (lilian ents >2yrs ). For more infor lorin carolina on this test, go to: http: //[facility] carolina.jes stdia gnost ics.c om/fa q/FAQ 163 (This link is being provi ded for infor matio nal/e ducat ional purpo ses only. ) Not Available [facility] [address] [address] [place], [address], 12/04/2018 09:31:39 02/05/2002/05/2019 vitam in D, 25-hy droxy , total , serum vitamin D,25-oh,tota l,ia 29 NG/mL 30-100 low Vitam in D Statu s 25-OH Vitam in D: Defic iency : <20 ng/mL Insuf ficie ncy: 20 - 29 ng/mL Optim al: > or = 30 ng/mL For 25-OH Vitam in D testi ng on patie nts on D2-buckley pplem entat ion and patie nts for whom quant itati on of D2 and D3 fract ions is requi red, the [facility](TM ) 25-OH VIT D, (D2,D 3), LC/MS /MS is recom fab d: order code 07696 (lilian ents >2yrs ). For more infor lorin carolina on this test, go to: http: //[facility] stdia gnost ics.c om/fa q/FAQ 163 (This link is being provi ded for infor matio nal/e ducat ional purpo ses only. ) Not Available [facility] [address] [place], [address], 02/05/2019 10:01:59 04/01/19 19 04/01/2018 MAMMO , scree eula, tomos ynthe sis, bilat eral, w/ CAD EXAM: TOMOSY NTHESI S SCREEN ING MAMMOG MONIE W CAD [id number] INDICA TION: Routin e screen ing. Histor y of left breast excisi on for atypia . COMPAR FARHEEN: 04/02/19 17. FINDIN GS: There are scatte red areas of fibrog landul ar densit y. There has been no suspic ious interv al change . There is no suspic ious mass, suspic ious group of calcif icatio ns, or other sign of malign edwin in either breast . This examin ation was interp reted with the aid of comput er aided detect ion (CAD) softwa re. IMPRES SHANAE: No mammog raphic eviden ce of malign edwin. BI-RAD S Assess ment Catego ry: 1 - Negati ve RECOMM ENDATI ON: Screen ing mammog haleigh in one year. This inform ation was entere d into a remind er system with a target date for her next mammog monie. A letter was mailed to the patien t with the result s of this mammog monie. Result Code: (1B) NEGATI VE SCATTE RED DENSIT Y Follow up: (A) YEARLY SCREEN ING This examin ation was interp reted by Derek Barr M.D., a fellow [facility] breast imagin g specia list with [facility] [place] [facility]. Slot 48 Electr onical ly signed by: Derek Barr M.D. 04/01/19 19 1:14 PM Interp reting Radiol ogist: Derek Barr CC: Thank you for visiti ng our imagin g center . [facility] [address], [place], [address], 04/01/2018 21:09:47 04/12/19 19 elect florencio diogr am No observ ation record ed. In-House Results For Internal Use Only, Do Not Delete/merge, [id number] 04/15/2018 12:36:57 08/08/19 21 08/07/2020 MAMMO , elham wynng, tomos ynthe sis, bilat eral, w/ CAD EXAMIN ATION: TOMOSY NTHESI S SCREEN ING MAMMOG MONIE W CAD [address]88[address], 021 11:10 AM CLINIC AL INDICA TION: Screen ing. Histor y of needle and surgic al biopsi es of the left breast in 2017. Wai baig grandm other diagno sed with breast cancer in her 80s. COMPAR FARHEEN: 017, 04/01/19 19. FINDIN GS: There are scatte red areas of fibrog landul ar densit y. No suspic ious mass, laura ectura l distor tion, or calcif icatio ns are identi fied. There has been no signif icant change . 3 D tomosy nthesi s was perfor med. The study is interp reted with Comput er Aided Detect ion. IMPRES SHANAE: BIRADS 1: Negati ve RECOMM ENDATI ON: Screen ing mammog monie in one year. The result s will be mailed to the kellee cramer and a remind er letter will be sent when she is due for her next mammog monie. This examin ation was interp reted by Kevin yeboah M.D., a fellow [facility]ia list with [facility] [place] [facility]. Slot 41 Electr onical ly signed by: Kevin yeboah 021 2:11 PM Interp reting Radiol ogist: SACHA YEBOAH CC: Thank you for visiti ng our imagin g center . [facility] [address], [place], [address], 08/07/2020 21:30:26 Result Notes None recorded. 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 Procedures Surgical History Date Name Laterality Status Provider Name and Address Organization Details Recorded Time 08/08/19 21 Date of Last Mammogram completed Tiarra Wilhelm PA-C [address] [place], [address], [facility] 08/07/2020 18:17:04 04/15/19 19 Orthopaedic Surgery completed Tiarra Wilhelm PA-C [address] [place], [address], [facility] 02/04/2019 11:34:02 08/12/19 18 Cerumen Removal w/instrumentation completed Tairra Wilhelm PA-C [address] [place], [address], [facility] 08/11/2017 12:00:42 03/30/19 13 Colonoscopy completed Tiarra Wilhelm PA-C [address] [place], [address], [facility] 04/30/2016 16:29:50 03/30/18 79 Other completed Tiarra Wilhelm PA-C [address] [place], [address], [facility] 04/30/2016 16:30:22 Breast Biopsy completed [facility]a [facility] 04/30/2016 16:09:44 [facility] 04/[facility] 16:09:44 Imaging Results Imaging Date Name Status LastModified by Organization Details LastModified Time 04/01/2018 MAMMO, screening, tomosynthesis, bilateral, w/ CAD completed [id number], [place], [address], 04/01/2018 21:09:47 04/12/2018 electrocardiogram completed [id number] In-Hous e Results For Internal Use Only, Do Not Delete/merge, [id number] 04/15/2018 12:36:57 08/07/2020 MAMMO, screening, tomosynthesis, bilateral, w/ CAD completed [facility] [address], [place], [address], 08/07/2020 21:30:26 Procedure Notes None recorded. Medical Equipment None Reported. Allergies Allergen ID Allergen Name Allergen Category Reaction Reaction Severity Criticality Documentation Date Start Date Code Code System Note Provider Name and Address Organization Details Recorded Time 47791 Substance with sulfonami de structure and antibacte rial mechanism of action (substanc e) medicatio n nausea Not available Not available 04/30/2016 05910 8003 SNOMED Digna Cottrell [facility] 7 16:17:15 08453 Betadine medicatio n rash Not available Not available 08/11/2017 29507 0 RxNorm Tiarra Wilhelm PA-C [address] [place], [address] [place] [address] 8 10:48:40 16973 sodium glutamate food Not available Not available Not available 02/04/20192018 41320 88 RxNorm Digna Cottrell [facility] 9 11:00:06 76036 povidone- iodine medicatio n rash severe Not available 02/04/20192018 8611 RxNorm Digna bergeron [facility] 9 11:00:06 Medications Name Sig Start Date Stop Date Status Note LastModified by Organization Details LastModified Time fluconazole 100 mg tablet TK 2 TS PO DAY ONE THEN 1 DAILY UNTIL GONE active Not Available Not Available No t Available clotrimazol e 10 mg xander TK 1 T PO 5 TIMES DAILT FOR 4 DAYS active Not Available Not Available No t Available acetaminoph en 325 mg tablet 325 mg by oral route. active Not Available Not Available No t Available ibuprofen 800 mg tablet 800 mg by oral route. 05/16 completed Not Available Not Available Not Available metoprolol succinate ER 50 mg tablet,exte nded release 24 hr TAKE 1 TABLET BY MOUTH EVERY DAY DIRECTED active Not Available Not Available No t Available hydrocodone 5 mg-acetamin ophen 325 mg tablet 08/11 completed Not Available Not Available Not Available alprazolam 0.25 mg tablet Take 0.5 mg by oral route. 02/04 completed Not Available Not Available Not Available promethazin e 25 mg tablet 25 mg every 6 hours by oral route. active Not Available Not Available No t Available lisinopril 20 mg-hydrochl orothiazide 25 mg tablet TAKE 1 TABLET BY MOUTH EVERY DAY DIRECTED active Not Available Not Available No t Available ergocalcife rol (vitamin D2) 1,250 mcg (50,000 unit) capsule TK 1 C PO 2 TIMES WEEKLY active Not Available Not Available No t Available oxycodone 5 mg tablet TK 1 T PO Q 6 H PRN P FOR UP TO 28 DOSES 02/04 completed Not Available Not Available Not Available Fish Oil active Not Available Not Avai lable Not Available Stool Softener active Not Available Not Available Not Available oxycodone 5 mg tablet,oral ONLY (not feeding tubes) Take 5 mg every 6 hours by oral route. 02/04 completed Not Available Not Available Not Available melatonin 10 mg tablet Take by oral route. active Not Available Not Available No t Available Xiidra 5 % eye drops in a dropperette INSTILL 1 DROP IN BOTH EYES TWICE DAILY active Not Available Not Available No t Available Vitals Date Recorded Body height Body weight Body mass index (BMI) Body temperature Oxygen saturation Oxygen saturation in Arterial blood by Pulse oximetry Heart rate Respiratory rate Systolic blood pressure Diastolic blood pressure Provider Name and Address Organization Details Last Updated DateTime 7 165.1 cm 70442.2 4 g 31.8 kg/m2 97.3 [degF] 96 % 96 % 56 /min 16 /min 138 mm[Hg] 86 mm[Hg] Digna Cottrell [facility] 7 16:13:31 Date Recorded Body height Body mass index (BMI) Body weight Heart rate Oxygen saturation Oxygen saturation in Arterial blood by Pulse oximetry Respiratory rate Body temperature Systolic blood pressure Diastolic blood pressure Provider Name and Address Organization Details Last Updated DateTime 8 165.1 cm 32.8 kg/m2 88727.4 g 72 /min 97 % 97 % 16 /min 97.8 [degF] 132 mm[Hg] 80 mm[Hg] Digna Cottrell [facility] 8 10:29:59 Date Recorded Body height Body mass index (BMI) Body weight Body temperature Respiratory rate Oxygen saturation Oxygen saturation in Arterial blood by Pulse oximetry Heart rate Systolic blood pressure Diastolic blood pressure Provider Name and Address Organization Details Last Updated DateTime 9 165.1 cm 32.2 kg/m2 80364.7 3 g 97.8 [degF] 16 /min 97 % 97 % 65 /min 132 mm[Hg] 80 mm[Hg] Digna Cottrell [facility] 9 15:12:02 Date Recorded Body height Body mass index (BMI) Body weight Body temperature Respiratory rate Oxygen saturation Oxygen saturation in Arterial blood by Pulse oximetry Heart rate Systolic blood pressure Diastolic blood pressure Provider Name and Address Organization Details Last Updated DateTime 9 165.1 cm 32.3 kg/m2 86652.3 2 g 97.7 [degF] 16 /min 98 % 98 % 83 /min 132 mm[Hg] 80 mm[Hg] Digna Cottrell [facility] 9 11:14:02 Social History Question Answer Notes LastModified by Organizat ion Details LastModified Time Tobacco Smoking Status Never Smoker Digna Cottrell ely[facility] 04/30/2016 16:09:39 Do You Have An Advance Directive? No [email or web address] Information not available 04/30/2016 What Is Your Level Of Alcohol Consumption? Occasional Information not available 04/30/2016 What Is Your Level Of Caffeine Consumption? Occasional Information not available 04/30/2016 What Type Of Diet Are You Following? REGULAR [email or web address] Information not available 04/30/2016 Live Alone Or With Others? With Others [email or web address] Information not available 04/30/2016 Marital Status Information not available 04/30/2016 What Was The Date Of Your Most Recent Tobacco Screening? 02/04/2019 Information not available 02/04/2019 How Many Children Do You Have? 2 [email or web address] Information not available 04/30/2016 Do You Have Any Siblings? YANELY [email or web address] Information not available 04/30/2016 Smoke Alarm In Home Yes Information not available 04/30/2016 How Much Tobacco Do You Smoke? No [email or web address] Information not available 04/30/2016 General Stress Level Medium However, Mar 2016 Has Been Extremely High Stress Information not available 04/30/2016 How Many Years Have You Smoked Tobacco? 0 [email or web address] Information not available 04/30/2016 Sex: Unknown Functional Status Question Answer Note LastModified by Organization D etails LastModified Time What is your exercise level? Moderate [email or web address] Information not available 04/30/2016 Mental Status None recorded. Family History Relationship Description Onset Age of this Age Resolved Age Notes LastModified by Organization Details LastModified Time Paternal Grandfather Hypertensive disorder [email or web address] Not available 2016 16:09:24 Father Heart disease [email or web address] Not available 2016 16:09:24 Father Myocardial infarction [email or web address] Not available 04/30 16:09:24 Father Hypertensive disorder [email or web address] Not available 2016 16:09:24 Father Family history of cancer of colon 74 Not available 2017 10:18:18 Mother Diabetes mellitus [email or web address] Not available 2016 16:09:24 Mother Hypertensive disorder Not available 2016 16:09:24 Mother Aneurysm 63 [email or web address] Not available 08/11/2017 10:18:18 Unspecified Relation Hypertensive disorder [email or web address] Not available 2016 16:09:24 Paternal Grandmother Diabetes mellitus Not available 2016 16:09:24 Medical History Condition Response Coronary Artery Disease N Gout N Other N Blood Diseases N Kidney Stones N Hyperthyroidism N Emphysema N Depression N COPD N Hypothyroidism N Developmental or Behavioral Disorders N Eczema, Hives or other skin conditions N Anxiety Disorder N Muscle, Joint, or Bone Problems N Vision or Eye Problems N Arthritis N Congenital Anomalies N Cancer N Stroke N Bladder or Kidney Problems N High Cholesterol N Liver Disease N Fibromyalgia N Kidney Disease N Heart Problems N Ear or Hearing Problems N Fatigue N ADD or ADHD N Thyroid Problems N Skin Problems N Anemia N Constipation N Diabetes N Seizures/Epilepsy N Tuberculosis N Chronic Pain N Diverticulitis N Allergies N Asthma N Sleep Disorder N GERD/Reflux N Heart Disease N Pulmonary Embolism N Hypertension Y Osteoporosis N Chicken Pox N Gynecological History Statement/Question Response If Post Menopausal, Age at Menopause 52 Date of Last PAP 02/2018 Date of Last Mammogram 08/07/2020 On BCP's at Conception? N Age at Menarche 11 Current Control Method None Age at First Child 25 Obstetrics History GPAL:G 2 P 2 0 1 2 Type Value Multiple Births 0 Full Term 2 Induced 0 Spontaneous 1 Premature 0 Living 2 Ectopics 0 Total 2 Past Encounters Encounter ID Performer Location Encounter Start Date Encounter Closed Date Diagnosis/Indication Diagnosis SNOMED-CT Code Diagnosis ICD10 Code Diagnosis Note [id number] Tiarra Wilhelm PA-C [facility] [address] [place] [address] 04/30/2016 15:33:06 04/30/2016 16:45:14 Breast lump 67751418 N63 Benign hypertension 1072 5009 I10 Papilloma 818899393 D36. 9 [id number] Tiarra Wilhelm PA-C [facility] [address] [place] [address] 08/11/2017 10:03:09 08/11/2017 11:11:37 Family history of cancer of colon 744662015 Z80.0 Body mass index 30+ - obesity 530415981 Z68.39 Vitamin D deficiency 347 63420 E55.9 Senile hyperkeratosis 39 1610780 L82.1 Benign hypertension 1072 5009 I10 Gynecologi c examination 71993519 Z01.419 Impacted cerumen 1635757 6 H61.22 [id number] Tiarra Wilhelm PA-C [facility] [address] [place] [address] 1 04/08/2018 15:01:35 04/08/2018 15:38:06 Pre-surgery evaluation 590271590 Z01.818 Vitamin D deficiency 347 64058 E55.9 Hallux mary pillo AND bunion 360925420 M20.11 [id number] Tiarra Wilhelm PA-C [facility] [address] [place] [address] 02/04/2019 10:49:13 02/04/2019 11:49:11 Localized, primary osteoarthritis of the ankle and/or foot 244035343 M19.071 M19.072 Vitamin D deficiency 347 68119 E55.9 Gynecologi c examination 13631082 Z01.419 Benign hypertension 1072 5009 I10 Medication review done 421584068 Z76.89 Body mass index 30+ - obesity 633461929 Z68.32 Health Concerns Section Related Observation LastModified by Organization Detai ls LastModified Time None Recorded Concern Status LastModified by Organization Details LastModified Time None Recorded Advance Directives Directive N: Payers Encounter Date Sequence Insurance Name Policy Number Policy Matt Covered Member ID Matt Member ID Guarantor Name 04/30/2016 1 [facility] [id number] Debbie Tran [id number] 2 Debbie Tran 08/11/2017 1 [facility] [id number] Debbie Tran [id number] 2 Debbie Tran 04/08/2018 1 [facility] [id number] Debbie Tran [id number] 2 Debbie Marc 02/04/2019 1 [facility] [id number] Debbie Tran [id number] 2 Debbie Marc Notes Date Note Type Note Provider Name and Address Organization Details Recorded Time 04/30/2016 text/html Chronic IllnessReported bypatient.Context:Hyp ertension Onset/Timing:Chronic Qualitystable Medications:taking medications as directed; no side effects from medication Associated Signs and Symptomsnone reported Tiarra Wilhelm PA-C [address] [place], [address], [facility] 04/30/2016 17:59:30 08/11/2017 text/html [facility]History:Las t PAP (02/22/2016) Menstrual cycle:history of menopause having occurred Urinary symptoms:No hematuria;Incontinenc e(stress incontinence- sneezes, gases, etc.) Vulva:No genital lesion; Patient would like you to look at her hemmoroids. Breast:No breast pain; No breast lump; No nipple discharge; Patient reports reports having a necrosis fat cyst removed in 02/2017 Current Contraception:Monogam ous relationship ( over 40 years) Sexual complaints:No sexual complaints Menopausal Symptoms:No menopausal symptomsNotes:Patient would like to have provider look at some skin lesion on her upper extremity. Tiarra Wilhelm PA-C [address] [place], [address], [facility] 08/11/2017 12:12:24 04/08/2018 text/html Pre-OpReported bypatient.Visit For:examination: pre-operative exam Surgerydate: 9; surgery site:right foot -bunion, tendon, adjusting calcaneus; reason for surgery:Foot surgery Procedure preparation/procedura l support:EKG; lab work (CBC AND CMP); other:EKGNotes:Fax results to Stephanie at [phone] Tiarra Wilhelm PA-C [address] [place], [address], [facility] 04/08/2018 15:40:31 02/04/2019 text/html Annual [facility] ed bypatient.History:Las t PAP (08/11/2017- pap was normal and negative for HPV, repeat age 64.); Mammogram: Date:04/01/2018 normal Date of Next Exam: (mammogram is normal, repeat in 1 year.); Last Fasting Labs (12/03/2018); HPV immunization (Never) Menstrual cycle:history of menopause having occurred Urinary symptoms:No hematuria;Incontinenc e(stress incontinence- sneezes, gases, etc.) Vulva:No genital lesion Breast:No breast pain; No breast lump; No nipple discharge; Patient reports reports having a necrosis fat cyst removed in 02/2017 Current Contraception:Monogam ous relationship ( over 40 years) Sexual complaints:No sexual complaints Menopausal Symptoms:No menopausal symptomsNotes:Patient reports she is still having issues since her foot surgery in 03/2018. She reports having arthritis in both feet. Tiarra Wilhelm PA-C [address] [place], [address], [place] [facility] 02/04/2019 12:30:13 OBGyn Episode No OBEpisode recorded.
--- OUTSIDE RECORDS SUMMARY | 2024-05-18 09:14 | XMS_ITS | Patient Health Record ---
Author Organization [facility] Delaney sears Billing Info Address [address] [place] [address] Support Name Relationship Address Phone Trace Tran Emergency Contact [address] [facility] [place], [place] [address] Debbie Tran Guarantor Unknown [phone] Allergies Allergen (clinical drug ingredient) Drug/Non Drug Allergy documented on EMR Reaction Allergy Type Onset Date Status Sulfa Unknown Drug Allergy Active Reason For Referral No Information Medications Medication SIG (Take, Route, Fr equency, Duration) Notes Start Date End Date Status Vitamin B Complex Orally Ac tive Vitamin D 1000 UNIT 1 tablet Orally Once a day Active Metoprolol Succinate Active Lisinopril 20 MG 1 tablet Orally Once a day Active Fish Oil 1000 MG 1 capsule Orally Once a day Active Social History Tobacco Use: Social History Observation Description Date Details (start date - stop date) Never Smoker NA - NA Tobacco Status: Question Answer Notes Patient is a never smoker Problems Problem Type SNOMED Code ICD Code Onset Dates Problem Status W/U Status Risk Notes Problem [id number] Cervical polyp (N84.1) Active confirmed Plan Of Treatment No Information Insurance Providers Payer Name Payer Address Payer Phone Subscriber Number Group Number Insured Name Patient Relationship to Insured Coverage Start Date Coverage End Date [employer] PLUS PPO [address] [place], [place] [id number] [phone] [id number] Trace Tran Spouse - patient is the spouse of the insured 5 Medical (General) History Medical History History ICD Code Hypertension Kidney disease Hepatitis Surgical History Surgery Date(Month/Year) oophorectomy right 1978 hemorrhoidectomy 1980
--- OUTSIDE RECORDS SUMMARY | 2024-05-18 09:14 | XMS_ITS ---
Author Name [facility] Organization Unknown History of Medication Use Medication Directions Dispensed Refills Start Date End Date Stat us Fiber (psyllium husk) co mpleted metoprolol succinate (capsule,sprinkle,ER 24hr) 50 mg completed Xiidra (dropperette) 5 % com pleted red yeast rice completed
--- OUTSIDE RECORDS SUMMARY | 2024-05-18 09:14 | XMS_ITS | Continuity of Care Document ---
Author Organization [facility] Address [address] [place] [address]- Care Team Providers Care Memory Care Program Director Name Role Phone Rene MEAT STOCK CLERK, Roxanne Canada Primary Care Physicia n Encounter [facility] Date(s): 04/04/24 - 05/04/24 [facility] [address] [place] [address]- Encounter Type: Triage Allergies, Adverse Reactions, Alerts Substance Criticality Severity Reaction Reaction Severity Status sulfa drugs stomach upset Acti ve Betadine Active MSG Active Immunizations Given and Recorded Vaccine Date Status Refusal Reason SARS-CoV-2(COVID-19)mRNA-LNP vac([id number]) 12/17/22 Recorded zoster vaccine, inactivated 08/26/22 Recorded zoster vaccine, inactivated 04/06/22 Recorded pneumococcal 20-valent conjugate vaccine 12/23/21 Recorded influenza virus vaccine, inactivated 12/20/21 Pino rded influenza virus vaccine, inactivated 02/03/21 Pino rded [id number] bivalent booster vax 12/05/21 Recorded SARS-CoV-2 (COVID-19) mRNA-1273 vaccine 06/27/21 R ecorded SARS-CoV-2 (COVID-19) mRNA-1273 vaccine 01/21/21 R ecorded Medications hydrochlorothiazide-lisinopril 25 mg-20 mg oral tablet 1 tablet, By Mouth, Daily, # 90 tablet, 1 Refills, Maintenance, 04/29/24 6:57:00 AM EST, [facility]/pharmacy #[id number], 1 tablet By Mouth Daily Start Date: 04/29/24 Status: Ordered Quantity: 90.0 Unit: tablet Repeat number: 2 Metoprolol Succinate ER 50 mg oral tablet, extended release 50 mg, 1, tablet, By Mouth, Daily, # 90 tablet, Refills 1, Tot. Refills 1, Maintenance, 04/29/24 6:56:00 AM EST, Route to Pharmacy Electronically, [facility]/pharmacy #[id number], Partial fill upon patient requestif the prescription is for a schedule II opioid drug. Start Date: 04/29/24 Status: Ordered Quantity: 90.0 Unit: tablet Repeat number: 2 Xiidra 5% ophthalmic solution 1 drops, Eyes, [...] Personnel Name: Rene HA, Roxanne Canada Position: [facility] PCO Associate Professional Member Role: PCP Address: [address] [place] [address]- Telecom: Care Team Related Persons Name: JORGE JANSEN Insurance Providers Guarantor name: ADOLFO JUSTYNA Health Plan Information #: 1 [facility] Member Number: NA Policy Number: NA Group Number: NA
[2024-05-18 09:21] VITALS: BP 160/70; PULSE 59; O2SAT 100; BMI 29.3
== END 2024-05-18 10:14 | disposition home or self-care (01) ==
PROVIDERS: PCP Nurse Practitioner; Visit Provider Nurse Practitioner Family
DX: Z01.818 Encounter for other preprocedural examination (principal); Z12.11 Encounter for screening for malignant neoplasm of colon; K21.9 Gastro-esophageal reflux disease without esophagitis
CPT/HCPCS: S0285

== ENCOUNTER 2024-08-05 09:44 | Outpatient (REF) | payer OTHER, SELFPAY ==
--- NOTE | ~2024-08-05 | FL_ITS ---
EXAMINATION: XR GI SERIES CLINICAL INFORMATION: Gastroesophageal reflux disease without hernia COMPARISON: None available. TECHNIQUE: Routine upper GI air contrast study was performed in upright and lying position FINDINGS: Following oral administration of thick barium and effervescent granules there is normal propagation of bolus from the oral cavity through the pharynx into the esophagus without any evidence of obstruction, narrowing or stricture. The course, caliber and peristalsis of the stomach, duodenal bulb and sweep is normal. Incidental finding of a small diverticulum in the third segment of the duodenum is noted. There is no gastroesophageal reflux or hiatal hernia. FLUOROSCOPY TIME: 2 minutes 33 seconds DOSE AREA PRODUCT: 1873 uGy-m2 (microgray-meter squared) FL/FL upper GI w Ba Swallow IMPRESSION: Upper GI air air contrast study. Electronically signed by: Maximiliano Hsu MD 08/05/2024 11:48 AM EDT
--- OUTSIDE RECORDS SUMMARY | 2024-08-05 10:06 | XMS_ITS | Data Portability ---
Author Organization [facility], [employer] Address [address] [place] [address] Assessment No assessment recorded. Plan of Treatment Reminders Order Date Submit Date Provider Last Modified By Organization Details Last Modified Time Details Appointments None recorded. Lab urinalysis , dipstick 2018 019 In-House Results, For Internal Use Only, Do Not Delete/merge, [id number] 9 12:20:56 vitamin D, 25-hydroxy , total, serum 2018 019 [facility], [address] [address] [place], [address], 9 10:02:00 urinalysis , dipstick 2017 018 In-House Results, For Internal Use Only, Do Not Delete/merge, [id number] 8 11:29:45 pap, LB + reflex HR HPV (16+18+45) 2017 018 [facility]AL Not available 8 08:30:41 fecal occult blood, stool 2017 018 In-House Results, For Internal Use Only, Do Not Delete/merge, [id number] 8 11:05:11 CBC w/ auto diff 2017 018 [facility], [address] [place], [address], 8 07:39:16 CMP, serum or plasma 2017 018 [facility], [address] [place], [address], 8 07:39:16 TSH, serum or plasma 2017 018 [facility], [address] [place], [address], 8 07:39:17 lipid panel, serum 2017 018 [facility], [address] [place], [address], 8 07:39:15 vitamin D, 25-hydroxy , total, serum 2017 018 [facility], [address] [place], [address], 8 07:39:17 Referral colonoscop y referral 2017 018 [email or web address] Not available 8 11:49:[address]/dietiti an referral 2017 [email or web address] Not available 8 12:14:43 Procedures None recorded. Surgeries None recorded. Imaging electrocar diogram 2018 [place] In-House Results, For Internal Use Only, Do Not Delete/merge, [id number] 9 10:07:49 Medication Orders lisinopril 20 mg-hydroch lorothiazi de 25 mg tablet 2018 019 INTERFACE [facility] #[id number], [address] [facility] [place], [id number], 9 11:49:56 metoprolol succinate ER 50 mg tablet,ext ended release 24 hr 2018 019 [facility] #[id number], [address] [place], [place], [id number], 9 11:49:55 Vitamin D2 1,250 mcg (50,000 unit) capsule 2018 019 INTERFACE [facility] #[id number], [address] [place], [place], [id number], 9 15:31:34 Patient TargetsNo targets recorded. Patient Instructions Encounter Date Encounter Id Patient Instructions Last Modified By Organization Details Last Modified Time 04/30/2016 [id number] Pt. already scheduled with General Surgery this Thursday for consultation for excisional biopsy of left breast. Pt. BP doing well, doesn't need refills yet. Just had physical in Jan 2016. F/u Jan 2017, sooner if problems. Not available 04/30/2016 17:59:27 08/11/2017 [id number] earwax blockage: care instructions Not available 08/11/2017 12:12:20 seborrheic keratosis: care instructions Not available 08/11/2017 11:05:11 Pt. doing well overall. Will call with pap and lab results. Referral placed for colonoscopy and program advocate for pt - # given to schedule. Recommend pt schedule with Dr. Stout for mole removal if she chooses to have them removed. Pt. tolerated ear wax removal well. Otherwise, f/u 1 year, sooner if problems. Not available 08/11/2017 12:12:19 04/08/2018 [id number] Pt doing well overall, she is having bunionectomy as well as some other reconstruction of her right foot. She is cleared medically pending lab results, will fax clearance once labs available. F/u May for annual physical, sooner if problems. Not available 04/08/2018 15:40:06 02/04/2019 [id number] Pt doing well overall. She had fasting [...] cancer of colon Referring Physician: Tiarra Wilhelm, [facility], Encounter Date: 08/11/2017 Heater Helper/dietitian Refer ral for Body mass index 30+ - obesity Referring Physician: Tiarra Wilhelm [facility], Encounter Date: 08/11/2017 Results Created Date Observation Date Name Description Value Unit Range Abnormal Flag Note LastModifiedBy Organization Detail LastModifiedTime 02/05/2002/04/2019 urina lysis , dipst ick BLD neg. Not Available In-House Results For Internal Use Only, Do Not Delete/merge, [id number] 02/04/2019 11:50:20 02/05/2002/04/2019 urina lysis , dipst ick UBG norm. Not Available In-House Results For Internal Use Only, Do Not Delete/merge, [id number] 02/04/2019 11:50:20 02/05/2002/04/2019 urina lysis , dipst ick MADONNA neg. Not Available In-House Results For Internal Use Only, Do Not Delete/merge, 02/04/2019 11:50:20 02/05/20 19 02/04/2019 urina lysis , dipst ick PRO neg. Not Available In-House Results For Internal Use Only, Do Not Delete/merge, [id number] 02/04/2019 11:50:20 02/05/2002/04/2019 urina lysis , dipst ick NIT negati ve Not Available In-House Results For Internal Use Only, Do Not Delete/merge, [id number] 02/04/2019 11:50:20 02/05/2002/04/2019 urina lysis , dipst ick KET neg. Not Available In-House Results For Internal Use Only, Do Not Delete/merge, [id number] 02/04/2019 11:50:20 02/05/20 19 02/04/2019 urina lysis , dipst ick ASC neg. Not Available In-House Results For Internal Use Only, Do Not Delete/merge, [id number] 02/04/2019 11:50:20 02/05/20 19 02/04/2019 urina lysis [...] 08/11/2017 urina lysis , dipst ick Specific Marble 1.015 Not Available In-Patti se Results For [...] total 187 mg/dL <200 normal Not Available [employer] [address] [place], [address], 08/12/2017 07:39:15 08/12/19 18 08/12/2017 lipid panel , serum HDL cholesterol 55 mg/dL >50 normal Not Available [facility] Amanda Huff [employer] [address] [address] [place], [address], 08/12/2017 07:39:15 08/12/19 18 08/12/2017 lipid panel , serum triglyceride s 176 mg/dL <150 high Not Available [employer] [address] [address] [place], [address], 08/12/2017 07:39:15 0508/12/2017 lipid panel , serum [...] 310(1 5): 2061- 2068 (http ://ed ucati onUniversity of Utah. Climateminder/f aq/FA Q164) Not Available [employer] [facility] [address] [address] [place], [address], 08/12/2017 07:39:15 08/12/1908/12/2017 lipid panel , serum chol/HDLC ratio 3.4 (calc ) <5.0 normal Not Available [employer] [address] [address] [place], [address], 08/12/2017 07:39:15 08/12/1908/12/2017 lipid panel , serum non HDL cholesterol 132 mg/dL _(param c) <130 high For patie nts with diabe rakan plus 1 major ASCVD risk facto r, treat ing to a non-H DL-C goal of <100 mg/dL (LDL- C of <70 mg/dL ) is consi dered a thera peuti c optio n. Not Available [employer] [facility] [address] [address], [place], [address], 08/12/2017 07:39:15 08/12/1908/12/2017 CMP, serum or plasm a glucose 94 mg/dL 65-99 normal Fasti ng refer ence inter mary Not Available [employer] [facility] [address] [address], [place], [address], 08/12/2017 07:39:16 08/12/19 18 08/12/2017 CMP, serum or plasm a urea nitrogen (BUN) 14 mg/dL 7-25 normal Not Available [address], [address], 08/12/2017 07:39:16 08/12/19 18 08/12/2017 CMP, serum or plasm a creatinine 0.75 mg/dL 0.50-0 .99 normal For patie nts >49 years of age, the refer ence limit for Creat inine is appro ximat angus 13% highe r for peopl e ident ified as Afric an-Am nany n. Not Available [address], [address], 08/12/2017 07:39:16 08/12/19 18 08/12/2017 CMP, serum or plasm a eGFR non-afr. gibraltarian 85 mL/mi n/1.7 3m2 > or = 60 normal Not Available [facility] [address] [address] [place], [address], 08/12/2017 07:39:08/12/19 18 08/12/2017 CMP, serum or plasm a eGFR 98 mL/mi n/1.7 3m2 > or = 60 normal Not Available [address], [address], 08/12/2017 07:39:08/12/19 18 08/12/2017 CMP, serum or plasm a BUN/creatini ne ratio NOT APPLIC ABLE (calc ) 6-22 Not Available [address], [address], 08/12/2017 07:39:08/12/19 18 08/12/2017 CMP, serum or plasm a sodium 138 mmol/ L 135-14 6 normal Not Available [address], [address], 08/12/2017 07:39:16 08/12/19 18 08/12/2017 CMP, serum or plasm a potassium 3.5 mmol/ L 3.5-5. 3 normal Not Available [address], [address], 08/12/2017 07:39:16 08/12/19 18 08/12/2017 CMP, serum or plasm a chloride 100 mmol/ L 98-110 normal Not Available [address], [address], 08/12/2017 07:39:16 08/12/19 18 08/12/2017 CMP, serum or plasm a carbon dioxide 27 mmol/ L 18-29 normal Not Available [address], [address], 08/12/2017 07:39:08/12/19 18 08/12/2017 CMP, serum or plasm a calcium 9.5 mg/dL 8.6-10 .4 normal Not Available [address], [address], 08/12/2017 07:39:16 08/12/19 18 08/12/2017 CMP, serum or plasm a protein, total 6.8 g/dL 6.1-8. 1 normal Not Available [address], [address], 08/12/2017 07:39:08/12/1908/12/2017 CMP, serum or plasm a albumin 4.8 g/dL 3.6-5. 1 normal Not Available [facility] [address], [address], 08/12/2017 07:39:08/12/1908/12/2017 CMP, serum or plasm a globulin 2.0 g/dL_ (calc ) 1.9-3. 7 normal Not Available [address], [address], 08/12/2017 07:39:16 08/12/19 18 08/12/2017 CMP, serum or plasm a albumin/glob ulin ratio 2.4 (calc ) 1.0-2. 5 normal Not Available [address], [address], 08/12/2017 07:39:16 08/12/19 18 08/12/2017 CMP, serum or plasm a bilirubin, total 0.6 mg/dL 0.2-1. 2 normal Not Available [address], [address], 08/12/2017 07:39:08/12/19 18 08/12/2017 CMP, serum or plasm a alkaline phosphatase 67 U/L 33-130 normal Not Available [facility] [employer] [address], [address], 08/12/2017 07:39:16 08/12/19 18 08/12/2017 CMP, serum or plasm a AST 22 U/L 10-35 normal Not Available [address], [address], 08/12/2017 07:39:08/12/19 18 08/12/2017 CMP, serum or plasm a ALT 24 U/L 6-29 normal Not Available [address], [address], 08/12/2017 07:39:08/12/19 18 08/12/2017 CBC w/ auto diff white blood cell count 3.7 thous and/u L 3.8-10 .8 low Not Available [address], [address], 08/12/2017 07:39:16 08/12/19 18 08/12/2017 CBC w/ auto diff red blood cell count 5.05 ajay on/uL 3.96-5 .31 normal Not Available [employer] [address], [address], 08/12/2017 07:39:16 08/12/19 18 08/12/2017 CBC w/ auto diff hemoglobin 14.6 g/dL 12.0-1 6.3 normal Not Available [address], [address], 08/12/2017 07:39:16 08/12/19 18 08/12/2017 CBC w/ auto diff hematocrit 42.3 % 36.8-4 9.5 normal Not Available [address], [address], 08/12/2017 07:39:16 08/12/19 18 08/12/2017 CBC w/ auto diff MCV 83.8 fL 80.0-1 00.0 normal Not Available [address], [address], 08/12/2017 07:39:16 08/12/19 18 08/12/2017 CBC w/ auto diff MCH 28.9 pg 27.0-3 3.0 normal Not Available [address], [address], 08/12/2017 07:39:16 08/12/19 18 08/12/2017 CBC w/ auto diff MCHC 34.5 g/dL 32.0-3 6.0 normal Not Available [address], [address], 08/12/2017 07:39:16 08/12/19 18 08/12/2017 CBC w/ auto diff RDW 14.1 % 11.0-1 5.0 normal Not Available [address], [address], 08/12/2017 07:39:16 08/12/19 18 08/12/2017 CBC w/ auto diff platelet count 247 thous and/u L 140-40 0 normal Not Available [address], [address], 08/12/2017 07:39:16 08/12/19 18 08/12/2017 CBC w/ auto diff MPV 9.3 fL 7.5-12 .5 normal Not Available [address], [address], 08/12/2017 07:39:16 08/12/19 18 08/12/2017 CBC w/ auto diff absolute neutrophils 2264 cells /uL 1500-7 800 normal Not Available [address], [address], 08/12/2017 07:39:16 08/12/19 18 08/12/2017 CBC w/ auto diff absolute lymphocytes 1084 cells /uL 850-39 00 normal Not Available [address], [address], 08/12/2017 07:39:16 08/12/19 18 08/12/2017 CBC w/ auto diff absolute monocytes 252 cells /uL 200-95 0 normal Not Available [address], [address], 08/12/2017 07:39:16 08/12/19 18 08/12/2017 CBC w/ auto diff absolute eosinophils 89 cells /uL 15-500 normal Not Available [address], [address], 08/12/2017 07:39:16 08/12/19 18 08/12/2017 CBC w/ auto diff absolute basophils 11 cells /uL 0-200 normal Not Available [address], [address], 08/12/2017 07:39:16 08/12/19 18 08/12/2017 CBC w/ auto diff neutrophils 61.2 % normal Not Available [address], [address], 08/12/2017 07:39:16 08/12/19 18 08/12/2017 CBC w/ auto diff lymphocytes 29.3 % normal Not Available [facility] [address], [address], 08/12/2017 07:39:16 08/12/19 18 08/12/2017 CBC w/ auto diff monocytes 6.8 % normal Not Available [facility] [address], [address], 08/12/2017 07:39:16 08/12/19 18 08/12/2017 CBC w/ auto diff eosinophils 2.4 % normal Not Available [address], [address], 08/12/2017 07:39:16 08/12/19 18 08/12/2017 CBC w/ auto diff basophils 0.3 % normal Not Available [address], [address], 08/12/2017 07:39:16 08/12/19 18 08/12/2017 TSH, serum or plasm a TSH 1.16 mIU/L 0.40-4 .50 normal Not Available [address], [address], 08/12/2017 07:39:17 08/12/19 18 08/12/2017 vitam in [...] /MS is recom fab d: order code 53550 (lilian ents >2yrs ). For more randallr lorin carolina on this test, go to: http: //jaime carolina.que stdia gnost ics.c om/fa q/FAQ 163 (This link is being provi ded for infor lorin nal/e ducat ional purpo ses only. ) Not Available [facility] [address] [address], [place], [address], 08/12/2017 07:39:17 08/12/19 18 08/11/2017 pap, LB [...] t. Cytot echno logis t: Patch in [facility], CT( CP) The Pap test is a scree eula test, with inter preta tion subje ct to both false negat kirstin and false posit kirstin resul ts. Recom mend clini param corre latio n. End of t Not Available [facility] (Lab) [address] [facility] [address] [place] [address], [address], 08/13/2017 08:30:22 08/12/19 18 08/11/2017 pap, LB + refle x HR HPV (16+1 8+45) high-risk HPV type 16 Negati ve Not Available [facility] (Lab) [address] [facility] [address], [place], [address], 08/13/2017 08:30:22 08/12/19 18 08/11/2017 pap, LB + refle x HR HPV (16+1 8+45) high-risk HPV type 18 Negati ve Not Available [facility] (Lab) [address] [facility] [address], [place], [address], 08/13/2017 08:30:22 08/12/19 18 08/11/2017 pap, LB + refle x HR HPV (16+1 8+45) other high-risk HPV types Negati ve (Othe r High Risk HPV types encom pass one or more of the follo wing 12 high risk HPV types : 31, 33, 35, 39, 45, 51, 52, 56, 58, 59, 66, 68) Dom HPV Test by [employer] is a quali tativ e in [...] kirstin. Not Available [facility] (Lab) [address] [facility] [address], [place], [address], 08/13/2017 08:30:22 08/28/19 18 08/28/2017 CBC w/ auto diff white blood cell count 5.4 thous and/u L 3.8-10 .8 normal Not Available [employer] [facility] [address] [place], [address], 08/28/2017 08:12:26 08/28/19 18 08/28/2017 CBC w/ auto diff red blood cell count 4.85 ajay on/uL 3.96-5 .31 normal Not Available [facility] [address] [place], [address], 08/28/2017 08:12:26 08/28/19 18 08/28/2017 CBC w/ auto diff hemoglobin 14.1 g/dL 12.0-1 6.3 normal Not Available [address], [address], 08/28/2017 08:12:26 08/28/19 18 08/28/2017 CBC w/ auto diff hematocrit 41.8 % 36.8-4 9.5 normal Not Available [address], [address], 08/28/2017 08:12:26 08/28/19 18 08/28/2017 CBC w/ auto diff MCV 86.2 fL 80.0-1 00.0 normal Not Available [address], [address], 08/28/2017 08:12:08/28/19 18 08/28/2017 CBC w/ auto diff MCH 29.1 pg 27.0-3 3.0 normal Not Available [address], [address], 08/28/2017 08:12:26 08/28/19 18 08/28/2017 CBC w/ auto diff MCHC 33.7 g/dL 32.0-3 6.0 normal Not Available [address], [address], 08/28/2017 08:12:08/28/19 18 08/28/2017 CBC w/ auto diff RDW 14.2 % 11.0-1 5.0 normal Not Available [address], [address], 08/28/2017 08:12:08/28/19 18 08/28/2017 CBC w/ auto diff platelet count 249 thous and/u L 140-40 0 normal Not Available [address], [address], 08/28/2017 08:12:26 08/28/19 18 08/28/2017 CBC w/ auto diff MPV 9.1 fL 7.5-12 .5 normal Not Available [address] [address] [place], [address], 08/28/2017 08:12:26 08/28/19 18 08/28/2017 CBC w/ auto diff absolute neutrophils 3456 cells /uL 1500-7 800 normal Not Available [address] [place], [address], 08/28/2017 08:12:26 08/28/19 18 08/28/2017 CBC w/ auto diff absolute lymphocytes 1555 cells /uL 850-39 00 normal Not Available [address], [address], 08/28/2017 08:12:26 08/28/19 18 08/28/2017 CBC w/ auto diff absolute monocytes 259 cells /uL 200-95 0 normal Not Available [address], [address], 08/28/2017 08:12:26 08/28/19 18 08/28/2017 CBC w/ auto diff absolute eosinophils 108 cells /uL 15-500 normal Not Available [address], [address], 08/28/2017 08:12:26 08/28/19 18 08/28/2017 CBC w/ auto diff absolute basophils 22 cells /uL 0-200 normal Not Available [address], [address], 08/28/2017 08:12:26 08/28/19 18 08/28/2017 CBC w/ auto diff neutrophils 64 % normal Not Available [address], [address], 08/28/2017 08:12:26 08/28/19 18 08/28/2017 CBC w/ auto diff lymphocytes 28.8 % normal Not Available [address] [place], [address], 08/28/2017 08:12:26 08/28/19 18 08/28/2017 CBC w/ auto diff monocytes 4.8 % normal Not Available [facility] [address] [address] [place], [address], 08/28/2017 08:12:26 08/28/19 18 08/28/2017 CBC w/ auto diff eosinophils 2.0 % normal Not Available [facility] [address] [address] [place], [address], 08/28/2017 08:12:26 08/28/19 18 08/28/2017 CBC w/ auto diff basophils 0.4 % normal Not Available [facility] [address] [address] [place], [address], 08/28/2017 08:12:26 11/05/19 18 11/05/2017 vitam in [...] /MS is recom fab d: order code 15103 (lilian ents >2yrs ). For more infor lorin carolina on this test, go to: http: //jaime meeks ics.c om/fa q/FAQ 163 (This link is being provi ded for infor lorin nal/e ducat ional purpo ses only. ) Not Available [address] [address] [place], [address], 11/05/2017 09:12:01 04/08/1904/09/2018 lipid panel , serum cholesterol, total 177 mg/dL <200 normal Not Available [address] [address] [place], [address], 04/09/2018 07:58:26 04/08/1904/09/2018 lipid panel , serum HDL cholesterol 56 mg/dL >50 normal Not Available [facility] [employer] [address] [address] [place], [address], 04/09/2018 07:58:26 04/08/1904/09/2018 lipid panel , serum triglyceride s 111 mg/dL <150 normal Not Available [facility] [address] [address] [place], [address], 04/09/2018 07:58:26 04/08/1904/09/2018 lipid panel , serum LDL-choleste rol 100 mg/dL _(param c) high Refer ence range : <100 Shayna able range <100 mg/dL for prima ry preve ntion ; <70 mg/dL for patie nts with CHD or diabe tic patie nts with > or = 2 CHD risk facto rs. LDL-C is now calcu lated using the Julienne carolina[facility] hari azevedo n, which is a valid ated novel carlos briscoe accur acy than the Fried frances equat ion in the estim ation of LDL-C . Julienne carolina SS et al. ENRIQUETA. 2013; 310(1 9): 2061- 2068 (http ://ed ucati on.Qu Edilma looney tics. com/f aq/FA Q164) Not Available [facility] [address] [place], [address], 04/09/2018 07:58:26 04/08/1904/09/2018 lipid panel , serum chol/HDLC ratio 3.2 (calc ) <5.0 normal Not Available [address] [address] [place], [address], 04/09/2018 07:58:26 04/08/1904/09/2018 lipid panel , serum non HDL cholesterol 121 mg/dL _(param c) <130 normal For patie nts with diabe rakan plus 1 major ASCVD risk facto r, treat ing to a non-H DL-C goal of <100 mg/dL (LDL- C of <70 mg/dL ) is yobani moore optio n. Not Available [address] [address] [place], [address], 04/09/2018 07:58:26 04/08/1904/09/2018 CMP, serum or plasm a glucose 92 mg/dL 65-99 normal Fasti ng refer ence inter mary Not Available [address], [address], 04/09/2018 07:58:27 04/08/1904/09/2018 CMP, serum or plasm a urea nitrogen (BUN) 19 mg/dL 7-25 normal Not Available [address] [address] [place], [address], 04/09/2018 07:58:27 04/08/1904/09/2018 CMP, serum or plasm a creatinine 0.73 mg/dL 0.50-0 .99 normal For patie nts >49 years of age, the refer ence limit for Creat inine is appro ximat angus 13% highe r for peopl e ident ified as Afric an-Am nany n. Not Available [address] [address] [place], [address], 04/09/2018 07:58:27 04/08/1904/09/2018 CMP, serum or plasm a eGFR non-afr. gibraltarian 87 mL/mi n/1.7 3m2 > or = 60 normal Not Available [address] [address] [place], [address], 04/09/2018 07:58:27 04/08/1904/09/2018 CMP, serum or plasm a eGFR 101 mL/mi n/1.7 3m2 > or = 60 normal Not Available [address], [address], 04/09/2018 07:58:27 04/08/1904/09/2018 CMP, serum or plasm a BUN/creatini ne ratio NOT APPLIC ABLE (calc ) 6-22 Not Available [address], [address], 04/09/2018 07:58:27 04/08/1904/09/2018 CMP, serum or plasm a sodium 138 mmol/ L 135-14 6 normal Not Available [address], [address], 04/09/2018 07:58:27 04/08/1904/09/2018 CMP, serum or plasm a potassium 3.3 mmol/ L 3.5-5. 3 low Not Available [address], [address], 04/09/2018 07:58:27 04/08/1904/09/2018 CMP, serum or plasm a chloride 97 mmol/ L 98-110 low Not Available [address], [address], 04/09/2018 07:58:27 04/08/1904/09/2018 CMP, serum or plasm a carbon dioxide 29 mmol/ L 18-30 normal Not Available [address], [address], 04/09/2018 07:58:27 04/08/1904/09/2018 CMP, serum or plasm a calcium 9.5 mg/dL 8.6-10 .4 normal Not Available [address], [address], 04/09/2018 07:58:27 04/08/1904/09/2018 CMP, serum or plasm a protein, total 6.9 g/dL 6.1-8. 1 normal Not Available [address] [address] [place], [address], 04/09/2018 07:58:27 04/08/1904/09/2018 CMP, serum or plasm a albumin 4.7 g/dL 3.6-5. 1 normal Not Available [address], [address], 04/09/2018 07:58:27 04/08/1904/09/2018 CMP, serum or plasm a globulin 2.2 g/dL_ (calc ) 1.9-3. 7 normal Not Available [address], [address], 04/09/2018 07:58:27 04/08/1904/09/2018 CMP, serum or plasm a albumin/glob ulin ratio 2.1 (calc ) 1.0-2. 5 normal Not Available [address], [address], 04/09/2018 07:58:27 04/08/1904/09/2018 CMP, serum or plasm a bilirubin, total 0.7 mg/dL 0.2-1. 2 normal Not Available [address], [address], 04/09/2018 07:58:27 04/08/1904/09/2018 CMP, serum or plasm a alkaline phosphatase 68 U/L 33-130 normal Not Available [facility] [employer] [place] [address] [address] [place], [address], 04/09/2018 07:58:27 04/08/1904/09/2018 CMP, serum or plasm a AST 19 U/L 10-35 normal Not Available [address] [address] [place], [address], 04/09/2018 07:58:27 04/08/1904/09/2018 CMP, serum or plasm a ALT 18 U/L 6-29 normal Not Available [address], [address], 04/09/2018 07:58:27 04/08/1904/09/2018 CBC w/ auto diff white blood cell count 4.6 thous and/u L 3.8-10 .8 normal Not Available [address], [address], 04/09/2018 07:58:27 04/08/1904/09/2018 CBC w/ auto diff red blood cell count 5.03 ajay on/uL 3.96-5 .31 normal Not Available [address], [address], 04/09/2018 07:58:27 04/08/1904/09/2018 CBC w/ auto diff hemoglobin 14.2 g/dL 12.0-1 6.3 normal Not Available [address], [address], 04/09/2018 07:58:27 04/08/1904/09/2018 CBC w/ auto diff hematocrit 42.4 % 36.8-4 9.5 normal Not Available [address], [address], 04/09/2018 07:58:27 04/08/1904/09/2018 CBC w/ auto diff MCV 84.3 fL 80.0-1 00.0 normal Not Available [address], [address], 04/09/2018 07:58:27 04/08/1904/09/2018 CBC w/ auto diff MCH 28.2 pg 27.0-3 3.0 normal Not Available [address], [address], 04/09/2018 07:58:27 04/08/1904/09/2018 CBC w/ auto diff MCHC 33.5 g/dL 32.0-3 6.0 normal Not Available [address], [address], 04/09/2018 07:58:27 04/08/1904/09/2018 CBC w/ auto diff RDW 13.8 % 11.0-1 5.0 normal Not Available [address], [address], 04/09/2018 07:58:27 04/08/1904/09/2018 CBC w/ auto diff platelet count 244 thous and/u L 140-40 0 normal Not Available [address], [address], 04/09/2018 07:58:27 04/08/1904/09/2018 CBC w/ auto diff MPV 9.7 fL 7.5-12 .5 normal Not Available [address], [address], 04/09/2018 07:58:27 04/08/1904/09/2018 CBC w/ auto diff absolute neutrophils 2535 cells /uL 1500-7 800 normal Not Available [address], [address], 04/09/2018 07:58:27 04/08/1904/09/2018 CBC w/ auto diff absolute lymphocytes 1601 cells /uL 850-39 00 normal Not Available [address], [address], 04/09/2018 07:58:27 04/08/1904/09/2018 CBC w/ auto diff absolute monocytes 368 cells /uL 200-95 0 normal Not Available [address], [address], 04/09/2018 07:58:27 04/08/1904/09/2018 CBC w/ auto diff absolute eosinophils 78 cells /uL 15-500 normal Not Available [address] [address] [place], [address], 04/09/2018 07:58:27 04/08/1904/09/2018 CBC w/ auto diff absolute basophils 18 cells /uL 0-200 normal Not Available [address] [place], [address], 04/09/2018 07:58:27 04/08/1904/09/2018 CBC w/ auto diff neutrophils 55.1 % normal Not Available [address] [address] [place], [address], 04/09/2018 07:58:27 04/08/1904/09/2018 CBC w/ auto diff lymphocytes 34.8 % normal Not Available [address] [address] [place], [address], 04/09/2018 07:58:27 04/08/1904/09/2018 CBC w/ auto diff monocytes 8.0 % normal Not Available [address] [place], [address], 04/09/2018 07:58:27 04/08/1904/09/2018 CBC w/ auto diff eosinophils 1.7 % normal Not Available [address] [address] [place], [address], 04/09/2018 07:58:27 04/08/1904/09/2018 CBC w/ auto diff basophils 0.4 % normal Not Available [address] [address] [place], [address], 04/09/2018 07:58:27 04/09/1904/09/2018 elect rocar diogr am Rhythm Hernan SR Not Available In-House Results For Internal Use Only, Do Not Delete/merge, [id number] 04/08/2018 15:21:53 04/09/1904/09/2018 elect rocar diogr am Sheldon WNL Not Available In-House Results For Internal Use Only, Do Not Delete/merge, [id number] 04/08/2018 15:21:53 04/09/1904/09/2018 elect florencio burnsgr am OR 180ms Not Available In-House Results For Internal Use Only, Do Not Delete/merge, [id number] 04/08/2018 15:21:53 04/09/19 19 04/09/2018 elect florencio burnsgr am QRS 92ms Not Available In-House Results For Internal Use Only, Do Not Delete/merge, [id number] 04/08/2018 15:21:53 04/09/1904/09/2018 elect rocclaude diogr am R Wave Progression Normal Not Available In-H ouse Results For Internal Use Only, Do Not Delete/merge, [id number] 04/08/2018 15:21:53 04/09/1904/09/2018 elect florencio burnsgr am Overall Interpretati on normal Not Available In-Patti se Results For Internal Use Only, Do Not Delete/merge, [id number] 04/08/2018 15:21:53 04/12/1904/13/2018 BMP, serum or plasm a glucose 100 mg/dL 65-99 high Fasti ng refer ence inter mary For someo ne witho ut known diabe rakan, a gluco se value betwe en 100 and 125 mg/dL is consi stent with predi abete s and shoul d be confi rmed with a follo w-up test. Not Available [employer] [facility] [address] [place], [address], 04/13/2018 09:32:48 04/12/1904/13/2018 BMP, serum or plasm a urea nitrogen (BUN) 21 mg/dL 7-25 normal Not Available [facility] [address] [place], [address], 04/13/2018 09:32:48 04/12/1904/13/2018 BMP, serum or plasm a creatinine 0.74 mg/dL 0.50-0 .99 normal For patie nts >49 years of age, the refer ence limit for Creat inine is appro ximat angus 13% highe r for peopl e ident ified as Afric an-Am nany n. Not Available [address] [address] [place], [address], 04/13/2018 09:32:48 04/12/1904/13/2018 BMP, serum or plasm a eGFR non-afr. gibraltarian 86 mL/mi n/1.7 3m2 > or = 60 normal Not Available [facility] [address] [address] [place], [address], 04/13/2018 09:32:48 04/12/1904/13/2018 BMP, serum or plasm a eGFR 99 mL/mi n/1.7 3m2 > or = 60 normal Not Available [address] [address] [place], [address], 04/13/2018 09:32:48 04/12/1904/13/2018 BMP, serum or plasm a BUN/creatini ne ratio NOT APPLIC ABLE (calc ) 6-22 Not Available [address] [address] [place], [address], 04/13/2018 09:32:48 04/12/1904/13/2018 BMP, serum or plasm a sodium 138 mmol/ L 135-14 6 normal Not Available [facility] [address] [address] [place], [address], 04/13/2018 09:32:48 04/12/1904/13/2018 BMP, serum or plasm a potassium 3.8 mmol/ L 3.5-5. 3 normal Not Available [facility] [address] [address] [place], [address], 04/13/2018 09:32:48 04/12/1904/13/2018 BMP, serum or plasm a chloride 101 mmol/ L 98-110 normal Not Available [address] [address] [place], [address], 04/13/2018 09:32:48 04/12/1904/13/2018 BMP, serum or plasm a carbon dioxide 28 mmol/ L 18-30 normal Not Available [address], [address], 04/13/2018 09:32:48 04/12/1904/13/2018 BMP, serum or plasm a calcium 9.3 mg/dL 8.6-10 .4 normal Not Available [address], [address], 04/13/2018 09:32:48 12/04/1912/04/2018 lipid panel , serum cholesterol, total 182 mg/dL <200 normal Not Available [address], [address], 12/04/2018 09:31:36 12/04/1912/04/2018 lipid panel , serum HDL cholesterol 56 mg/dL >50 normal Not Available [address], [address], 12/04/2018 09:31:36 12/04/1912/04/2018 lipid panel , serum triglyceride s 167 mg/dL <150 high Not Available [address], [address], 12/04/2018 09:31:36 12/04/1912/04/2018 lipid panel , serum [...] Julienne carolina SS et al. ENRIQUETA. 2013; 310(7 3): 2061- 2068 (http ://ed ucati on.Qu Edilma diazFuturederms. com/f aq/FA Q164) Not Available [address], [address], 12/04/2018 09:31:36 12/04/1912/04/2018 lipid panel , serum chol/HDLC ratio 3.3 (calc ) <5.0 normal Not Available [address] [place], [address], 12/04/2018 09:31:36 12/04/1912/04/2018 lipid panel , serum non HDL cholesterol 126 mg/dL _(param c) <130 normal For patie nts with diabe rakan plus 1 major ASCVD risk facto r, treat ing to a non-H DL-C goal of <100 mg/dL (LDL- C of <70 mg/dL ) is consi dered a thera peuti c optio n. Not Available [address], [address], 12/04/2018 09:31:36 12/04/1912/04/2018 BMP, serum or plasm a glucose 95 mg/dL 65-99 normal Fasti ng refer ence inter mary Not Available [address], [address], 12/04/2018 09:31:37 12/04/1912/04/2018 BMP, serum or plasm a urea nitrogen (BUN) 11 mg/dL 7-25 normal Not Available [address] [place], [address], 12/04/2018 09:31:37 12/04/1912/04/2018 BMP, serum or plasm a creatinine 0.75 mg/dL 0.50-0 .99 normal For patie nts >49 years of age, the refer ence limit for Creat inine is appro ximat angus 13% highe r for peopl e ident ified as Afric an-Am nany n. Not Available [address] [address] [place], [address], 12/04/2018 09:31:37 12/04/1912/04/2018 BMP, serum or plasm a eGFR non-afr. gibraltarian 84 mL/mi n/1.7 3m2 > or = 60 normal Not Available [facility] [address] [address] [place], [address], 12/04/2018 09:31:37 12/04/1912/04/2018 BMP, serum or plasm a eGFR 98 mL/mi n/1.7 3m2 > or = 60 normal Not Available [facility] [address], [address], 12/04/2018 09:31:37 12/04/1912/04/2018 BMP, serum or plasm a BUN/creatini ne ratio NOT APPLIC ABLE (calc ) 6-22 Not Available [address] [address] [place], [address], 12/04/2018 09:31:37 12/04/1912/04/2018 BMP, serum or plasm a sodium 139 mmol/ L 135-14 6 normal Not Available [address] [address] [place], [address], 12/04/2018 09:31:37 12/04/1912/04/2018 BMP, serum or plasm a potassium 3.6 mmol/ L 3.5-5. 3 normal Not Available [facility] [address] [address] [place], [address], 12/04/2018 09:31:37 12/04/1912/04/2018 BMP, serum or plasm a chloride 100 mmol/ L 98-110 normal Not Available [facility] [address] [address] [place], [address], 12/04/2018 09:31:37 12/04/1912/04/2018 BMP, serum or plasm a carbon dioxide 29 mmol/ L 18-30 normal Not Available [address], [address], 12/04/2018 09:31:37 12/04/1912/04/2018 BMP, serum or plasm a calcium 9.6 mg/dL 8.6-10 .4 normal Not Available [address], [address], 12/04/2018 09:31:37 12/04/1912/04/2018 hepat ic funct ion panel , serum protein, total 7.0 g/dL 6.1-8. 1 normal Not Available [address], [address], 12/04/2018 09:31:37 12/04/1912/04/2018 hepat ic funct ion panel , serum albumin 4.8 g/dL 3.6-5. 1 normal Not Available [address], [address], 12/04/2018 09:31:37 12/04/1912/04/2018 hepat ic funct ion panel , serum globulin 2.2 g/dL_ (calc ) 1.9-3. 7 normal Not Available [address], [address], 12/04/2018 09:31:37 12/04/1912/04/2018 hepat ic funct ion panel , serum albumin/glob ulin ratio 2.2 (calc ) 1.0-2. 5 normal Not Available [address], [address], 12/04/2018 09:31:37 12/04/1912/04/2018 hepat ic funct ion panel , serum bilirubin, total 0.6 mg/dL 0.2-1. 2 normal Not Available [address], [address], 12/04/2018 09:31:37 12/04/1912/04/2018 hepat ic funct ion panel , serum bilirubin, direct 0.1 mg/dL < or = 0.2 normal Not Available [address], [address], 12/04/2018 09:31:37 12/04/1912/04/2018 hepat ic funct ion panel , serum bilirubin, indirect 0.5 mg/dL _(param c) 0.2-1. 2 normal Not Available [address], [address], 12/04/2018 09:31:37 12/04/1912/04/2018 hepat ic funct ion panel , serum alkaline phosphatase 77 U/L 33-130 normal Not Available [address], [address], 12/04/2018 09:31:37 12/04/1912/04/2018 hepat ic funct ion panel , serum AST 22 U/L 10-35 normal Not Available [address], [address], 12/04/2018 09:31:37 12/04/1912/04/2018 hepat ic funct ion panel , serum ALT 26 U/L 6-29 normal Not Available [address], [address], 12/04/2018 09:31:37 12/04/1912/04/2018 CBC w/ auto diff white blood cell count 4.1 thous and/u L 3.8-10 .8 normal Not Available [address], [address], 12/04/2018 09:31:38 12/04/1912/04/2018 CBC w/ auto diff red blood cell count 4.81 ajay on/uL 3.96-5 .31 normal Not Available [address], [address], 12/04/2018 09:31:38 12/04/1912/04/2018 CBC w/ auto diff hemoglobin 13.6 g/dL 12.0-1 6.3 normal Not Available [address], [address], 12/04/2018 09:31:38 12/04/1912/04/2018 CBC w/ auto diff hematocrit 42.4 % 36.8-4 9.5 normal Not Available [address], [address], 12/04/2018 09:31:38 12/04/1912/04/2018 CBC w/ auto diff MCV 88.1 fL 80.0-1 00.0 normal Not Available [address], [address], 12/04/2018 09:31:38 12/04/1912/04/2018 CBC w/ auto diff MCH 28.3 pg 27.0-3 3.0 normal Not Available [address], [address], 12/04/2018 09:31:38 12/04/1912/04/2018 CBC w/ auto diff MCHC 32.1 g/dL 32.0-3 6.0 normal Not Available [address], [address], 12/04/2018 09:31:38 12/04/1912/04/2018 CBC w/ auto diff RDW 14.4 % 11.0-1 5.0 normal Not Available [address], [address], 12/04/2018 09:31:38 12/04/1912/04/2018 CBC w/ auto diff platelet count 235 thous and/u L 140-40 0 normal Not Available [address] [place], [address], 12/04/2018 09:31:38 12/04/1912/04/2018 CBC w/ auto diff MPV 9.5 fL 7.5-12 .5 normal Not Available [address], [address], 12/04/2018 09:31:38 12/04/1912/04/2018 CBC w/ auto diff absolute neutrophils 2333 cells /uL 1500-7 800 normal Not Available [address], [address], 12/04/2018 09:31:38 12/04/1912/04/2018 CBC w/ auto diff absolute lymphocytes 1402 cells /uL 850-39 00 normal Not Available [address], [address], 12/04/2018 09:31:38 12/04/1912/04/2018 CBC w/ auto diff absolute monocytes 262 cells /uL 200-95 0 normal Not Available [address], [address], 12/04/2018 09:31:38 12/04/1912/04/2018 CBC w/ auto diff absolute eosinophils 82 cells /uL 15-500 normal Not Available [address], [address], 12/04/2018 09:31:38 12/04/1912/04/2018 CBC w/ auto diff absolute basophils 21 cells /uL 0-200 normal Not Available [address], [address], 12/04/2018 09:31:38 12/04/1912/04/2018 CBC w/ auto diff neutrophils 56.9 % normal Not Available [address], [address], 12/04/2018 09:31:38 12/04/1912/04/2018 CBC w/ auto diff lymphocytes 34.2 % normal Not Available [address], [address], 12/04/2018 09:31:38 12/04/1912/04/2018 CBC w/ auto diff monocytes 6.4 % normal Not Available [address], [address], 12/04/2018 09:31:38 12/04/1912/04/2018 CBC w/ auto diff eosinophils 2.0 % normal Not Available [address], [address], 12/04/2018 09:31:38 12/04/1912/04/2018 CBC w/ auto diff basophils 0.5 % normal Not Available [address], [address], 12/04/2018 09:31:38 12/04/1912/04/2018 TSH, serum or plasm a TSH 2.74 mIU/L 0.40-4 .50 normal Not Available [address], [address], 12/04/2018 09:31:38 12/04/1912/04/2018 vitam in D, 25-hy [...] /MS is recom fab d: order code 19595 (lilian ents >2yrs ). For more infor lorin carolina on this test, go to: http: //[facility] carolina.jes stdia gnost ics.c om/fa q/FAQ 163 (This link is being provi ded for infor matio nal/e ducat ional purpo ses only. ) Not Available [employer] [address] [address] [place], [address], 12/04/2018 09:31:39 02/05/2002/05/2019 vitam in D, 25-hy [...] /MS is recom fab d: order code 09512 (lilian ents >2yrs ). For more infor lorin carolina on this test, go to: http: //[facility]y schneider stdia gnost ics.c om/fa q/FAQ 163 (This link is being provi ded for infor matio nal/e ducat ional purpo ses only. ) Not Available [employer] [facility] [address] [place], [address], 02/05/2019 10:01:59 04/01/19 19 04/01/2018 MAMMO , scree eula, tomos ynthe sis, bilat eral, w/ CAD EXAM: TOMOSY NTHESI S SCREEN ING MAMMOG MONIE W CAD [address] INDICA TION: Routin e screen ing. Histor [...] reted by Derek Barr M.D., a fellow [facility] breast imagin g specia list with [facility] [place] do. Slot 48 Electr onical ly signed by: Derek Barr M.D. 04/01/19 19 1:14 PM Interp reting Radiol ogist: Derek Barr CC: Thank you for visiti ng our imagin g center . [facility] [address], [place], [address], 04/01/2018 21:09:47 04/12/19 19 elect florencio diogr am No observ ation record ed. [id number] In-House Results For Internal Use Only, Do Not Delete/merge, [id number] 04/15/2018 12:36:57 08/08/19 21 08/07/2020 MAMMO , elham wynng, tomos ynthe sis, bilat eral, w/ CAD EXAMIN ATION: TOMOSY NTHESI S SCREEN ING MAMMOG MONIE W CAD [address], 021 11:10 AM CLINIC AL INDICA TION: [...] reted by Kevin yeboah M.D., a fellow [facility] breast imagin g specia list with [facility] [place] [facility]. Slot 41 Electr onical ly signed by: Kevin yeboah 021 2:11 PM Interp reting Radiol ogist: SACHA YEBOAH CC: Thank you for visiti ng our imagin g center . [facility] [address], [place], [address], 08/07/2020 21:30:26 Result Notes None recorded. Problems Name Problem SNOMED Code Status Onset Date Resolution Date Notes Provider Name and Address Organization Details Recorded Time Benign hyperten shanae 41037270 Active 2016 Digna bergeron [facility] 9 11:00:18 Labile hyperten shanae due to being in a clinical environm ent 973303161 Completed 201602/04/2019 Tiarra Wilhelm PA-C [address] [place], [address] [place] [address] 9 11:48:41 Papillom a 369550259 Active 2016 left breast w/ calcifica tions Digna bergeron [facility] 9 11:00:18 Dry eyes 759772612 Active 2017 [facility] 11:[facility]:18 Family history of cancer of colon 679869828 Active 2017 Father Digna bergeron [facility] 9 11:00:18 Vitamin D deficien cy 39707230 Active 2017 [facility] 11:00:18 Problem Notes None recorded. Procedures Surgical History Date Name Laterality Status Provider Name and Address Organization Details Recorded Time 08/08/19 21 Date of Last Mammogram completed Tiarra Wilhelm PA-C [address] [email or web address], [address], [facility] 08/07/2020 18:17:04 04/15/19 19 Orthopaedic Surgery completed Tiarra Wilhelm PA-C [address] [email or web address], [address], [facility] 02/04/2019 11:34:02 08/12/19 18 Cerumen Removal w/instrumentation completed Tiarra Wilhelm PA-C [address] [email or web address], [address], [facility] 08/11/2017 12:00:42 03/30/19 13 Colonoscopy completed Tiarra Wilhelm PA-C [address] [email or web address], [address], [facility] 04/30/2016 16:29:50 03/30/18 79 Other completed Tiarra Wilhelm PA-C [address] [email or web address], [address], [facility] 04/30/2016 16:30:22 Breast Biopsy completed Digna [facility] 04/30/2016 16:09:44 [facility] 16:09:44 Imaging Results Imaging Date Name Status LastModified by Organization Details LastModified Time 04/01/2018 MAMMO, screening, tomosynthesis, bilateral, w/ CAD completed [place] [id number] [facility] [address], [place], [address], 04/01/2018 21:09:47 04/12/2018 electrocardiogram completed In-Hous e Results For Internal Use Only, Do Not Delete/merge, [id number] 04/15/2018 12:36:57 08/07/2020 MAMMO, screening, tomosynthesis, bilateral, w/ CAD completed [facility] [address], [place], [address], 08/07/2020 21:30:26 Procedure Notes None recorded. Medical Equipment None Reported. Allergies Allergen ID Allergen Name Allergen Category Reaction Reaction Severity Criticality Documentation Date Start Date Code Code System Note Provider Name and Address Organization Details Recorded Time 42577 Substance with sulfonami de structure and antibacte rial mechanism of action (substanc e) medicatio n nausea Not available Not available 04/30/2016 32597 8003 SNOMED Digna Cottrell [facility] 7 16:17:15 29826 Betadine medicatio n rash Not available Not available 08/11/2017 04347 0 RxNorm Tiarra Wilhelm PA-C [address] [place], [address] [place] [address] 8 10:48:40 30942 sodium glutamate food Not available Not available Not available 02/04/20192018 17788 88 RxNorm [facility] 9 11:00:06 [address]108 povidone- iodine medicatio n rash severe Not available 02/04/20192018 8611 RxNorm Digna bergeron [facility] 9 11:00:06 Medications Name Sig Start [...] Details Last Updated DateTime 7 165.1 cm 28889.2 4 g 31.8 kg/m2 97.3 [degF] 96 % 96 % 56 /min 16 /min 138 mm[Hg] 86 mm[Hg] Digna Cottrell [facility] 7 16:13:31 Date Recorded Body height Body mass index (BMI) Body weight Heart rate Oxygen saturation Oxygen saturation in Arterial blood by Pulse oximetry Respiratory rate Body temperature Systolic blood pressure Diastolic blood pressure Provider Name and Address Organization Details Last Updated DateTime 8 165.1 cm 32.8 kg/m2 09735.4 g 72 /min 97 % 97 % 16 /min 97.8 [degF] 132 mm[Hg] 80 mm[Hg] Digna Cottrell [facility] 8 10:29:59 Date Recorded Body height Body mass index (BMI) Body weight Body temperature Respiratory rate Oxygen saturation Oxygen saturation in Arterial blood by Pulse oximetry Heart rate Systolic blood pressure Diastolic blood pressure Provider Name and Address Organization Details Last Updated DateTime 9 165.1 cm 32.2 kg/m2 21742.7 3 g 97.8 [degF] 16 /min 97 % 97 % 65 /min 132 mm[Hg] 80 mm[Hg] Digna Cottrell [facility] 9 15:12:02 Date Recorded Body height Body mass index (BMI) Body weight Body temperature Respiratory rate Oxygen saturation Oxygen saturation in Arterial blood by Pulse oximetry Heart rate Systolic blood pressure Diastolic blood pressure Provider Name and Address Organization Details Last Updated DateTime 9 165.1 cm 32.3 kg/m2 51540.3 2 g 97.7 [degF] 16 /min 98 % 98 % 83 /min 132 mm[Hg] 80 mm[Hg] Digna Cottrell [facility] 9 11:14:02 Social History Question Answer Notes LastModified by Organizat ion Details LastModified Time Tobacco Smoking Status Never Smoker Digna Cottrell elyssa [facility] 04/30/2016 16:09:39 Do You Have An Advance Directive? No [email or web address] Information not available 04/30/2016 What Is Your Level Of Alcohol Consumption? Occasional [email or web address] Information not available 04/30/2016 What Is Your Level Of Caffeine Consumption? Occasional [email or web address] Information not available 04/30/2016 What Type Of Diet Are You Following? REGULAR [email or web address] Information not available 04/30/2016 Live Alone Or With Others? With Others [email or web address] Information not available 04/30/2016 Marital Status Information not available 04/30/2016 What Was The Date Of Your Most Recent Tobacco Screening? 02/04/2019 Information not available 02/04/2019 How Many Children Do You Have? 2 Information not available 04/30/2016 Do You Have Any Siblings? YANELY Information not available 04/30/2016 Smoke Alarm In Home Yes [email or web address] Information not available 04/30/2016 How Much Tobacco Do You Smoke? No [email or web address] Information not available 04/30/2016 General Stress Level Medium However, Mar 2016 Has Been Extremely High Stress Information not available 04/30/2016 How Many Years Have You Smoked Tobacco? 0 [email or web address] Information not available 04/30/2016 Sex: Unknown Functional Status Question Answer Note LastModified by Organization D etails LastModified Time What is your exercise level? Moderate Information not available 04/30/2016 Mental Status None recorded. Family History Relationship Description Onset Age of this Age Resolved Age Notes LastModified by Organization Details LastModified Time Paternal Grandfather Hypertensive disorder [email or web address] Not available 2016 16:09:24 Father Heart disease [email or web address] Not available 2016 16:09:24 Father Myocardial infarction [email or web address] Not available 04/30 16:09:24 Father Hypertensive disorder [email or web address] Not available 2016 16:09:24 Father Family history of cancer of colon 74 [email or web address] Not available 2017 10:18:18 Mother Diabetes mellitus [email or web address] Not available 2016 16:09:24 Mother Hypertensive disorder [email or web address] Not available 2016 16:09:24 Mother Aneurysm 63 [email or web address] Not available 08/11/2017 10:18:18 Unspecified Relation Hypertensive disorder [email or web address] Not available 2016 16:09:24 Paternal Grandmother Diabetes mellitus [email or web address] Not available 2016 16:09:24 Medical History Condition Response Coronary Artery Disease N Other N Gout N Kidney Stones N Blood Diseases N Hyperthyroidism N Emphysema N Depression N [...] Disease N Pulmonary Embolism N Hypertension Y Chicken Pox N Osteoporosis N Gynecological History Statement/Question Response If Post [...] SNOMED-CT Code Diagnosis ICD10 Code Diagnosis Note [id number] Jennifer Almanzar M.D. [facility] [address] [place] [phone] 04/30/2016 15:33:06 04/30/2016 16:45:14 Breast lump 96437003 N63 Benign hypertension 1072 5009 I10 Papilloma 528636971 D36. 9 [id number] Jennifer Almanzar M.D. [facility] [address] [place] [phone] 08/11/2017 10:03:09 08/11/2017 11:11:37 Family history of cancer of colon 110086313 Z80.0 Body mass index 30+ - obesity 932099246 Z68.39 Vitamin D deficiency 347 56810 E55.9 Senile hyperkeratosis 39 0782182 L82.1 Benign hypertension 1072 5009 I10 Gynecologi c examination 78544661 Z01.419 Impacted cerumen 7022088 6 H61.22 [id number] Jennifer Almanzar M.D. [facility] [address] [place] [phone] 04/08/2018 15:01:35 04/08/2018 15:38:06 Pre-surgery evaluation 982535585 Z01.818 Vitamin D deficiency 347 27917 E55.9 Hallux mary pillo AND bunion 213034869 M20.11 [id number] Jennifer Almanzar M.D. [facility] [address] [place] [address] 02/04/2019 10:49:13 02/04/2019 11:49:11 Localized, primary osteoarthritis of the ankle and/or foot 334012047 M19.071 M19.072 Vitamin D deficiency 347 [address]4880 E55.9 Gynecologi c examination 41690185 Z01.419 Benign hypertension 1072 5009 I10 Medication review done 917280722 Z76.89 Body mass index 30+ - obesity 232712730 Z68.32 Health Concerns Section Related Observation LastModified by Organization Detai ls LastModified Time None Recorded Concern Status LastModified by Organization Details LastModified Time None Recorded Advance Directives Directive N: Payers Insurance Date Sequence Insurance Name Policy Number Policy Matt Covered Member ID Matt Member ID Guarantor Name 08/13/2020 1 [facility] [id number] Debbie Tran [id number] Debbie Tran 07/11/2020 2 MEDICARE B-[employer]: [employer] Debbie Tran [id number] Debbie Tran Notes Date Note Type Note Provider Name and Address Organization Details Recorded Time 04/30/2016 text/html Chronic IllnessReported bypatient.Context:Hyp ertension Onset/Timing:Chronic Qualitystable Medications:taking medications as directed; no side effects from medication Associated Signs and Symptomsnone reported Tiarra Wilhelm PA-C [address] [place], [phone], [facility] 04/30/2016 17:59:30 08/11/2017 text/html [facility]History:Las t PAP (02/22/2016) [...] her upper extremity. Tiarra Wilhelm PA-C [address] [place], [phone], [facility] 08/11/2017 12:12:24 04/08/2018 text/html Pre-OpReported bypatient.Visit For:examination: pre-operative exam Surgerydate: 9; surgery site:right foot -bunion, tendon, adjusting calcaneus; reason for surgery:Foot surgery Procedure preparation/procedura l support:EKG; lab work (CBC AND CMP); other:EKGNotes:Fax results to Stephanie at [phone] Tiarra Wilhelm PA-C [address] [place] [address], [phone], [facility] 04/08/2018 15:40:31 02/04/2019 text/html Annual [facility] ed bypatient.History:Las t PAP (08/11/2017- pap was [...] arthritis in both feet. Tiarra Wilhelm PA-C [address] [place], [phone], [facility] 02/04/2019 12:30:13 OBGyn Episode No OBEpisode recorded.
--- OUTSIDE RECORDS SUMMARY | 2024-08-05 10:07 | XMS_ITS | Patient Health Record ---
Author Organization [facility] Delaney sears Billing Info Address [address] [place] [id number] Support Name Relationship Address Phone Trace Tran Emergency Contact [address] [facility] [place] [id number] Debbie Tran Guarantor Unknown [phone] Allergies Allergen (clinical drug ingredient) Drug/Non Drug [...] Problem Status W/U Status Risk Notes Problem [id number] Cervical polyp (N84.1) Active confirmed Plan Of Treatment No Information Insurance Providers Payer Name Payer Address Payer Phone Subscriber Number Group Number Insured Name Patient Relationship to Insured Coverage Start Date Coverage End Date [employer]US PPO [address] [place], [place] [phone] [id number] Trace Tran Spouse - patient is the spouse of the insured 5 Medical (General) History Medical History History ICD Code Hypertension Kidney disease Hepatitis Surgical History Surgery Date(Month/Year) oophorectomy right 1978 hemorrhoidectomy 1980
== END 2024-08-05 09:45 | disposition home or self-care (01) ==
LOC: HO.XRAY 09:44
PROVIDERS: PCP Nurse Practitioner; Visit Provider Nurse Practitioner Family
DX: K21.9 Gastro-esophageal reflux disease without esophagitis (principal)
CPT/HCPCS: 74240

== ENCOUNTER → 2024-08-05 09:46 | Outpatient (BNV) | payer OTHER, SELFPAY | PROVIDERS: PCP Nurse Practitioner; Visit Provider Radiology Diagnostic Radiology | DX: K21.9 Gastro-esophageal reflux disease without esophagitis (principal) | CPT/HCPCS: 74246 ==

== ENCOUNTER 2024-09-09 10:03 | Day surgery (SDC) | payer OTHER, SELFPAY ==
--- OUTSIDE RECORDS SUMMARY | 2024-07-29 08:00 | XMS_ITS | Patient Health Record ---
Author Organization [facility] Delaney sears Billing Info Address [address] [place] [address] Support Name Relationship Address Phone Trace Tran Emergency Contact [address] [facility] [place] [address] Debbie Tran Guarantor Unknown [phone] Allergies Allergen (clinical drug ingredient) Drug/Non Drug [...] Problem Status W/U Status Risk Notes Problem [id number] Cervical polyp (N84.1) Active confirmed Plan Of Treatment No Information Insurance Providers Payer Name Payer Address Payer Phone Subscriber Number Group Number Insured Name Patient Relationship to Insured Coverage Start Date Coverage End Date [employer] OA PLUS PPO [address] [place], [place] [id number] Trace Tran Spouse - patient is the spouse of the insured 5 Medical (General) History Medical History History ICD Code Hypertension Kidney disease Hepatitis Surgical History Surgery Date(Month/Year) oophorectomy right 1978 hemorrhoidectomy 1980
--- OUTSIDE RECORDS SUMMARY | 2024-07-29 08:00 | XMS_ITS | Data Portability ---
Author Organization [facility], [employer] Address [address] [facility] [place] [address] Assessment No assessment recorded. Plan of Treatment Reminders Order Date Submit Date Provider Last Modified By Organization Details Last Modified Time Details Appointments None recorded. Lab urinalysis , dipstick 2018 019 In-House Results, For Internal Use Only, Do Not Delete/merge, [id number] 9 12:20:56 vitamin D, 25-hydroxy , total, serum 2018 019 [facility], [address] [place], [address], 9 10:02:00 urinalysis , dipstick 2017 018 In-House Results, For Internal Use Only, Do Not Delete/merge, [id number] 8 11:29:45 pap, LB + reflex HR HPV (16+18+45) 2017 018 OP[facility] Not available 8 08:30:41 fecal occult blood, stool 2017 018 In-House Results, For Internal Use Only, Do Not Delete/merge, [id number] 8 11:05:11 CBC w/ auto diff 2017 018 [facility], [address] [place], [address], 8 07:39:16 CMP, serum or plasma 2017 018 [facility], [address] [place], [address], 8 07:39:16 TSH, serum or plasma 2017 018 [facility], [address] [place], [address], 8 07:39:17 lipid panel, serum 2017 018 [facility], [address] [place], [address], 8 07:39:15 vitamin D, 25-hydroxy , total, serum 2017 018 [facility], [address] [place], [address], 8 07:39:17 Referral colonoscop y referral 2017 018 Not available 8 11:49:[address]/dietiti an referral 2017 Not available 8 12:14:43 Procedures None recorded. Surgeries None recorded. Imaging electrocar diogram 2018 BRYANT In-House Results, For Internal Use Only, Do Not Delete/merge, [id number] 9 10:07:49 Medication Orders lisinopril 20 mg-hydroch lorothiazi de 25 mg tablet 2018 019 INTERFACE [facility] #[id number], [address] [facility] [place], [id number], 9 11:49:56 metoprolol succinate ER 50 mg tablet,ext ended release 24 hr 2018 019 INTERFACE [facility] #[id number], [address] [place], [id number], 9 11:49:55 Vitamin D2 1,250 mcg (50,000 unit) capsule 2018 019 INTERFACE [facility] #[id number], [address] [place], [id number], 9 15:31:34 Patient TargetsNo targets recorded. Patient Instructions Encounter Date Encounter Id Patient Instructions Last Modified By Organization Details Last Modified Time 04/30/2016 [id number] Pt. already scheduled with General Surgery this Thursday for consultation for excisional biopsy of left breast. Pt. BP doing well, doesn't need refills yet. Just had physical in Jan 2016. F/u Jan 2017, sooner if problems. Not available 04/30/2016 17:59:27 08/11/2017 [id number] earwax blockage: care instructions Not available 08/11/2017 12:12:20 seborrheic keratosis: care instructions Not available 08/11/2017 11:05:11 Pt. doing well overall. Will call with pap and lab results. Referral placed for colonoscopy and technical designer for pt - # given to schedule. Recommend pt schedule with Dr. Stout for mole removal if she chooses to have them removed. Pt. tolerated ear wax removal well. Otherwise, f/u 1 year, sooner if problems. Not available 08/11/2017 12:12:19 04/08/2018 [id number] Pt doing well overall, she is having bunionectomy as well as some other reconstruction of her right foot. She is cleared medically pending lab results, will fax clearance once labs available. F/u May for annual physical, sooner if problems. Not available 04/08/2018 15:40:06 02/04/2019 [id number] Pt doing well overall. 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 Not Available In-House Results For Internal Use Only, Do Not Delete/merge, [id number] 02/04/2019 11:50:20 02/05/2002/04/2019 urina lysis , dipst ick UBG norm. Not Available In-House Results For Internal Use Only, Do Not Delete/merge, [id number] 02/04/2019 11:50:20 02/05/2002/04/2019 urina lysis , dipst ick MADONNA neg. Not Available In-House Results For Internal Use Only, Do Not Delete/merge, 02/04/2019 11:50:20 02/05/20 19 02/04/2019 urina lysis , dipst ick PRO neg. Not Available In-House Results For Internal Use Only, Do Not Delete/merge, [id number] 02/04/2019 11:50:20 02/05/2002/04/2019 urina lysis , dipst ick NIT negati ve Not Available In-House Results For Internal Use Only, Do Not Delete/merge, [id number] 02/04/2019 11:50:20 02/05/2002/04/2019 urina lysis , dipst ick KET neg. Not Available In-House Results For Internal Use Only, Do Not Delete/merge, [id number] 02/04/2019 11:50:20 02/05/20 19 02/04/2019 urina lysis , dipst ick ASC neg. Not Available In-House Results For Internal Use Only, Do Not Delete/merge, [id number] 02/04/2019 11:50:20 02/05/20 19 02/04/2019 urina lysis [...] 08/11/2017 urina lysis , dipst ick Specific [place] 1.015 Not Available In-Patti se Results For [...] total 187 mg/dL <200 normal Not Available [facility] [address] [place], [address], 08/12/2017 07:39:15 08/12/19 18 08/12/2017 lipid panel , serum HDL cholesterol 55 mg/dL >50 normal Not Available [facility] [address] [address] [place], [address], 08/12/2017 07:39:15 08/12/19 18 08/12/2017 lipid panel , serum triglyceride s 176 mg/dL <150 high Not Available [facility] [address] [address] [place], [address], 08/12/2017 07:39:15 0508/12/2017 lipid panel , serum [...] n SS et al. ENRIQUETA. 2013; 310(1 5): 2061- 2068 (http ://ed ucati onEcoGroomer. [employer]/f aq/FA Q164) Not Available [facility] [address] [address] [place], [address], 08/12/2017 07:39:15 08/12/1908/12/2017 lipid panel , serum chol/HDLC ratio 3.4 (calc ) <5.0 normal Not Available [facility] [address] [address] [place], [address], 08/12/2017 07:39:15 08/12/1908/12/2017 lipid panel , serum non HDL cholesterol 132 mg/dL _(param c) <130 high For patie nts with diabe rakan plus 1 major ASCVD risk facto r, treat ing to a non-H DL-C goal of <100 mg/dL (LDL- C of <70 mg/dL ) is consi dered a thera peuti c optio n. Not Available [facility] [address] [address], [place], [address], 08/12/2017 07:39:15 08/12/1908/12/2017 CMP, serum or plasm a glucose 94 mg/dL 65-99 normal Fasti ng refer ence inter mary Not Available [facility] [address] [address], [place], [address], 08/12/2017 07:39:16 08/12/19 18 08/12/2017 CMP, serum or plasm a urea nitrogen (BUN) 14 mg/dL 7-25 normal Not Available [address], [address], 08/12/2017 07:39:16 08/12/19 18 08/12/2017 CMP, serum or plasm a creatinine 0.75 mg/dL 0.50-0 .99 normal For patie nts >49 years of age, the refer ence limit for Creat inine is appro ximat angus 13% highe r for peopl e ident ified as Afric an-Am nany n. Not Available [address], [address], 08/12/2017 07:39:16 08/12/19 18 08/12/2017 CMP, serum or plasm a eGFR non-afr. uruguayan 85 mL/mi n/1.7 3m2 > or = 60 normal Not Available [address] [address] [place], [address], 08/12/2017 07:39:08/12/19 18 08/12/2017 CMP, serum or plasm a eGFR 98 mL/mi n/1.7 3m2 > or = 60 normal Not Available [address], [address], 08/12/2017 07:39:08/12/19 18 08/12/2017 CMP, serum or plasm a BUN/creatini ne ratio NOT APPLIC ABLE (calc ) 6-22 Not Available [address], [address], 08/12/2017 07:39:08/12/19 18 08/12/2017 CMP, serum or plasm a sodium 138 mmol/ L 135-14 6 normal Not Available [address], [address], 08/12/2017 07:39:16 08/12/19 18 08/12/2017 CMP, serum or plasm a potassium 3.5 mmol/ L 3.5-5. 3 normal Not Available [address], [address], 08/12/2017 07:39:16 08/12/19 18 08/12/2017 CMP, serum or plasm a chloride 100 mmol/ L 98-110 normal Not Available [address], [address], 08/12/2017 07:39:16 08/12/19 18 08/12/2017 CMP, serum or plasm a carbon dioxide 27 mmol/ L 18-29 normal Not Available [address], [address], 08/12/2017 07:39:08/12/19 18 08/12/2017 CMP, serum or plasm a calcium 9.5 mg/dL 8.6-10 .4 normal Not Available [address], [address], 08/12/2017 07:39:16 08/12/19 18 08/12/2017 CMP, serum or plasm a protein, total 6.8 g/dL 6.1-8. 1 normal Not Available [address], [address], 08/12/2017 07:39:08/12/1908/12/2017 CMP, serum or plasm a albumin 4.8 g/dL 3.6-5. 1 normal Not Available [facility] [address], [address], 08/12/2017 07:39:08/12/1908/12/2017 CMP, serum or plasm a globulin 2.0 g/dL_ (calc ) 1.9-3. 7 normal Not Available [address], [address], 08/12/2017 07:39:16 08/12/19 18 08/12/2017 CMP, serum or plasm a albumin/glob ulin ratio 2.4 (calc ) 1.0-2. 5 normal Not Available [address], [address], 08/12/2017 07:39:16 08/12/19 18 08/12/2017 CMP, serum or plasm a bilirubin, total 0.6 mg/dL 0.2-1. 2 normal Not Available [address], [address], 08/12/2017 07:39:08/12/19 18 08/12/2017 CMP, serum or plasm a alkaline phosphatase 67 U/L 33-130 normal Not Available [facility] [address], [address], 08/12/2017 07:39:16 08/12/19 18 08/12/2017 CMP, serum or plasm a AST 22 U/L 10-35 normal Not Available [address], [address], 08/12/2017 07:39:08/12/19 18 08/12/2017 CMP, serum or plasm a ALT 24 U/L 6-29 normal Not Available [address], [address], 08/12/2017 07:39:08/12/19 18 08/12/2017 CBC w/ auto diff white blood cell count 3.7 thous and/u L 3.8-10 .8 low Not Available [address], [address], 08/12/2017 07:39:16 08/12/19 18 08/12/2017 CBC w/ auto diff red blood cell count 5.05 ajay on/uL 3.96-5 .31 normal Not Available [facility] [address], [address], 08/12/2017 07:39:16 08/12/19 18 08/12/2017 CBC w/ auto diff hemoglobin 14.6 g/dL 12.0-1 6.3 normal Not Available [address], [address], 08/12/2017 07:39:16 08/12/19 18 08/12/2017 CBC w/ auto diff hematocrit 42.3 % 36.8-4 9.5 normal Not Available [address], [address], 08/12/2017 07:39:16 08/12/19 18 08/12/2017 CBC w/ auto diff MCV 83.8 fL 80.0-1 00.0 normal Not Available [address], [address], 08/12/2017 07:39:16 08/12/19 18 08/12/2017 CBC w/ auto diff MCH 28.9 pg 27.0-3 3.0 normal Not Available [address], [address], 08/12/2017 07:39:16 08/12/19 18 08/12/2017 CBC w/ auto diff MCHC 34.5 g/dL 32.0-3 6.0 normal Not Available [address], [address], 08/12/2017 07:39:16 08/12/19 18 08/12/2017 CBC w/ auto diff RDW 14.1 % 11.0-1 5.0 normal Not Available [address], [address], 08/12/2017 07:39:16 08/12/19 18 08/12/2017 CBC w/ auto diff platelet count 247 thous and/u L 140-40 0 normal Not Available [address], [address], 08/12/2017 07:39:16 08/12/19 18 08/12/2017 CBC w/ auto diff MPV 9.3 fL 7.5-12 .5 normal Not Available [address], [address], 08/12/2017 07:39:16 08/12/19 18 08/12/2017 CBC w/ auto diff absolute neutrophils 2264 cells /uL 1500-7 800 normal Not Available [address], [address], 08/12/2017 07:39:16 08/12/19 18 08/12/2017 CBC w/ auto diff absolute lymphocytes 1084 cells /uL 850-39 00 normal Not Available [address], [address], 08/12/2017 07:39:16 08/12/19 18 08/12/2017 CBC w/ auto diff absolute monocytes 252 cells /uL 200-95 0 normal Not Available [address], [address], 08/12/2017 07:39:16 08/12/19 18 08/12/2017 CBC w/ auto diff absolute eosinophils 89 cells /uL 15-500 normal Not Available [address], [address], 08/12/2017 07:39:16 08/12/19 18 08/12/2017 CBC w/ auto diff absolute basophils 11 cells /uL 0-200 normal Not Available [address], [address], 08/12/2017 07:39:16 08/12/19 18 08/12/2017 CBC w/ auto diff neutrophils 61.2 % normal Not Available [address], [address], 08/12/2017 07:39:16 08/12/19 18 08/12/2017 CBC w/ auto diff lymphocytes 29.3 % normal Not Available [facility] [address], [address], 08/12/2017 07:39:16 08/12/19 18 08/12/2017 CBC w/ auto diff monocytes 6.8 % normal Not Available [facility] [address], [address], 08/12/2017 07:39:16 08/12/19 18 08/12/2017 CBC w/ auto diff eosinophils 2.4 % normal Not Available [address], [address], 08/12/2017 07:39:16 08/12/19 18 08/12/2017 CBC w/ auto diff basophils 0.3 % normal Not Available [address], [address], 08/12/2017 07:39:16 08/12/19 18 08/12/2017 TSH, serum or plasm a TSH 1.16 mIU/L 0.40-4 .50 normal Not Available [address], [address], 08/12/2017 07:39:17 08/12/19 18 08/12/2017 vitam in [...] /MS is recom fab d: order code 41170 (lilian ents >2yrs ). For more randallr lorin carolina on this test, go to: http: //jaime carolina.que stdia gnost ics.c om/fa q/FAQ 163 (This link is being provi ded for infor lorin nal/e ducat ional purpo ses only. ) Not Available [facility] [address] [address], [place], [address], 08/12/2017 07:39:17 08/12/19 18 08/11/2017 pap, LB [...] t. Cytot echno logis t: Patch in [facility], CT( CP) The Pap test is a scree eula test, with inter preta tion subje ct to both false negat kirstin and false posit kirstin resul ts. Recom mend clini param corre latio n. End of t Not Available [facility] (Lab) [address] [facility] [address] [place] [address], [address], 08/13/2017 08:30:22 08/12/19 18 08/11/2017 pap, LB + refle x HR HPV (16+1 8+45) high-risk HPV type 16 Negati ve Not Available [facility] (Lab) [address] [facility] [address], [place], [address], 08/13/2017 08:30:22 08/12/19 18 08/11/2017 pap, LB + refle x HR HPV (16+1 8+45) high-risk HPV type 18 Negati ve Not Available [facility] (Lab) [address] [facility] [address], [place], [address], 08/13/2017 08:30:22 08/12/19 18 08/11/2017 pap, LB + refle x HR HPV (16+1 8+45) other high-risk HPV types Negati ve (Othe r High Risk HPV types encom pass one or more of the follo wing 12 high risk HPV types : 31, 33, 35, 39, 45, 51, 52, 56, 58, 59, 66, 68) Dom HPV Test by [employer] is a quali tativ e in [...] negat kirstin. Not Available [facility] (Lab) [address] [facility] [address], [place], [address], 08/13/2017 08:30:22 08/28/19 18 08/28/2017 CBC w/ auto diff white blood cell count 5.4 thous and/u L 3.8-10 .8 normal Not Available [facility] [address] [place], [address], 08/28/2017 08:12:26 08/28/19 18 08/28/2017 CBC w/ auto diff red blood cell count 4.85 ajay on/uL 3.96-5 .31 normal Not Available [facility] [address] [place], [address], 08/28/2017 08:12:26 08/28/19 18 08/28/2017 CBC w/ auto diff hemoglobin 14.1 g/dL 12.0-1 6.3 normal Not Available [address], [address], 08/28/2017 08:12:26 08/28/19 18 08/28/2017 CBC w/ auto diff hematocrit 41.8 % 36.8-4 9.5 normal Not Available [address], [address], 08/28/2017 08:12:26 08/28/19 18 08/28/2017 CBC w/ auto diff MCV 86.2 fL 80.0-1 00.0 normal Not Available [address], [address], 08/28/2017 08:12:08/28/19 18 08/28/2017 CBC w/ auto diff MCH 29.1 pg 27.0-3 3.0 normal Not Available [address], [address], 08/28/2017 08:12:26 08/28/19 18 08/28/2017 CBC w/ auto diff MCHC 33.7 g/dL 32.0-3 6.0 normal Not Available [address], [address], 08/28/2017 08:12:08/28/19 18 08/28/2017 CBC w/ auto diff RDW 14.2 % 11.0-1 5.0 normal Not Available [address], [address], 08/28/2017 08:12:08/28/19 18 08/28/2017 CBC w/ auto diff platelet count 249 thous and/u L 140-40 0 normal Not Available [address], [address], 08/28/2017 08:12:26 08/28/19 18 08/28/2017 CBC w/ auto diff MPV 9.1 fL 7.5-12 .5 normal Not Available [address] [address] [place], [address], 08/28/2017 08:12:26 08/28/19 18 08/28/2017 CBC w/ auto diff absolute neutrophils 3456 cells /uL 1500-7 800 normal Not Available [address] [place], [address], 08/28/2017 08:12:26 08/28/19 18 08/28/2017 CBC w/ auto diff absolute lymphocytes 1555 cells /uL 850-39 00 normal Not Available [address], [address], 08/28/2017 08:12:26 08/28/19 18 08/28/2017 CBC w/ auto diff absolute monocytes 259 cells /uL 200-95 0 normal Not Available [address], [address], 08/28/2017 08:12:26 08/28/19 18 08/28/2017 CBC w/ auto diff absolute eosinophils 108 cells /uL 15-500 normal Not Available [address], [address], 08/28/2017 08:12:26 08/28/19 18 08/28/2017 CBC w/ auto diff absolute basophils 22 cells /uL 0-200 normal Not Available [address], [address], 08/28/2017 08:12:26 08/28/19 18 08/28/2017 CBC w/ auto diff neutrophils 64 % normal Not Available [address], [address], 08/28/2017 08:12:26 08/28/19 18 08/28/2017 CBC w/ auto diff lymphocytes 28.8 % normal Not Available [address] [place], [address], 08/28/2017 08:12:26 08/28/19 18 08/28/2017 CBC w/ auto diff monocytes 4.8 % normal Not Available [facility] [address] [address] [place], [address], 08/28/2017 08:12:26 08/28/19 18 08/28/2017 CBC w/ auto diff eosinophils 2.0 % normal Not Available [facility] [address] [address] [place], [address], 08/28/2017 08:12:26 08/28/19 18 08/28/2017 CBC w/ auto diff basophils 0.4 % normal Not Available [facility] [address] [address] [place], [address], 08/28/2017 08:12:26 11/05/19 18 11/05/2017 vitam in [...] /MS is recom fab d: order code 60703 (lilian ents >2yrs ). For more infor lorin carolina on this test, go to: http: //jaime meeks ics.c om/fa q/FAQ 163 (This link is being provi ded for infor lorin nal/e ducat ional purpo ses only. ) Not Available [address] [address] [place], [address], 11/05/2017 09:12:01 04/08/1904/09/2018 lipid panel , serum cholesterol, total 177 mg/dL <200 normal Not Available [address] [address] [place], [address], 04/09/2018 07:58:26 04/08/1904/09/2018 lipid panel , serum HDL cholesterol 56 mg/dL >50 normal Not Available [facility] [address] [address] [place], [address], 04/09/2018 07:58:26 04/08/1904/09/2018 lipid panel , serum triglyceride s 111 mg/dL <150 normal Not Available [facility] [address] [address] [place], [address], 04/09/2018 07:58:26 04/08/1904/09/2018 lipid panel , serum LDL-choleste rol 100 mg/dL _(param c) high Refer ence range : <100 Shayna able range <100 mg/dL for prima ry preve ntion ; <70 mg/dL for patie nts with CHD or diabe tic patie nts with > or = 2 CHD risk facto rs. LDL-C is now calcu lated using the Julienne [facility] hari azevedo n, which is a valid ated novel carlos briscoe accur acy than the Fried frances equat ion in the estim ation of LDL-C . Julienne carolina SS et al. ENRIQUETA. 2013; 310(1 9): 2061- 2068 (http ://ed ucati on.Qu Edilma looney tics. com/f aq/FA Q164) Not Available [facility] [address] [place], [address], 04/09/2018 07:58:26 04/08/1904/09/2018 lipid panel , serum chol/HDLC ratio 3.2 (calc ) <5.0 normal Not Available [address] [address] [place], [address], 04/09/2018 07:58:26 04/08/1904/09/2018 lipid panel , serum non HDL cholesterol 121 mg/dL _(param c) <130 normal For patie nts with diabe rakan plus 1 major ASCVD risk facto r, treat ing to a non-H DL-C goal of <100 mg/dL (LDL- C of <70 mg/dL ) is yobani moore optio n. Not Available [address] [address] [place], [address], 04/09/2018 07:58:26 04/08/1904/09/2018 CMP, serum or plasm a glucose 92 mg/dL 65-99 normal Fasti ng refer ence inter mary Not Available [address], [address], 04/09/2018 07:58:27 04/08/1904/09/2018 CMP, serum or plasm a urea nitrogen (BUN) 19 mg/dL 7-25 normal Not Available [address] [address] [place], [address], 04/09/2018 07:58:27 04/08/1904/09/2018 CMP, serum or plasm a creatinine 0.73 mg/dL 0.50-0 .99 normal For patie nts >49 years of age, the refer ence limit for Creat inine is appro ximat angus 13% highe r for peopl e ident ified as Afric an-Am nany n. Not Available [address] [address] [place], [address], 04/09/2018 07:58:27 04/08/1904/09/2018 CMP, serum or plasm a eGFR non-afr. uruguayan 87 mL/mi n/1.7 3m2 > or = 60 normal Not Available [address] [address] [place], [address], 04/09/2018 07:58:27 04/08/1904/09/2018 CMP, serum or plasm a eGFR 101 mL/mi n/1.7 3m2 > or = 60 normal Not Available [address], [address], 04/09/2018 07:58:27 04/08/1904/09/2018 CMP, serum or plasm a BUN/creatini ne ratio NOT APPLIC ABLE (calc ) 6-22 Not Available [address], [address], 04/09/2018 07:58:27 04/08/1904/09/2018 CMP, serum or plasm a sodium 138 mmol/ L 135-14 6 normal Not Available [address], [address], 04/09/2018 07:58:27 04/08/1904/09/2018 CMP, serum or plasm a potassium 3.3 mmol/ L 3.5-5. 3 low Not Available [address], [address], 04/09/2018 07:58:27 04/08/1904/09/2018 CMP, serum or plasm a chloride 97 mmol/ L 98-110 low Not Available [address], [address], 04/09/2018 07:58:27 04/08/1904/09/2018 CMP, serum or plasm a carbon dioxide 29 mmol/ L 18-30 normal Not Available [address], [address], 04/09/2018 07:58:27 04/08/1904/09/2018 CMP, serum or plasm a calcium 9.5 mg/dL 8.6-10 .4 normal Not Available [address], [address], 04/09/2018 07:58:27 04/08/1904/09/2018 CMP, serum or plasm a protein, total 6.9 g/dL 6.1-8. 1 normal Not Available [address] [address] [place], [address], 04/09/2018 07:58:27 04/08/1904/09/2018 CMP, serum or plasm a albumin 4.7 g/dL 3.6-5. 1 normal Not Available [address], [address], 04/09/2018 07:58:27 04/08/1904/09/2018 CMP, serum or plasm a globulin 2.2 g/dL_ (calc ) 1.9-3. 7 normal Not Available [address], [address], 04/09/2018 07:58:27 04/08/1904/09/2018 CMP, serum or plasm a albumin/glob ulin ratio 2.1 (calc ) 1.0-2. 5 normal Not Available [address], [address], 04/09/2018 07:58:27 04/08/1904/09/2018 CMP, serum or plasm a bilirubin, total 0.7 mg/dL 0.2-1. 2 normal Not Available [address], [address], 04/09/2018 07:58:27 04/08/1904/09/2018 CMP, serum or plasm a alkaline phosphatase 68 U/L 33-130 normal Not Available [facility] [address] [address] [place], [address], 04/09/2018 07:58:27 04/08/1904/09/2018 CMP, serum or plasm a AST 19 U/L 10-35 normal Not Available [address] [address] [place], [address], 04/09/2018 07:58:27 04/08/1904/09/2018 CMP, serum or plasm a ALT 18 U/L 6-29 normal Not Available [address], [address], 04/09/2018 07:58:27 04/08/1904/09/2018 CBC w/ auto diff white blood cell count 4.6 thous and/u L 3.8-10 .8 normal Not Available [address], [address], 04/09/2018 07:58:27 04/08/1904/09/2018 CBC w/ auto diff red blood cell count 5.03 ajay on/uL 3.96-5 .31 normal Not Available [address], [address], 04/09/2018 07:58:27 04/08/1904/09/2018 CBC w/ auto diff hemoglobin 14.2 g/dL 12.0-1 6.3 normal Not Available [address], [address], 04/09/2018 07:58:27 04/08/1904/09/2018 CBC w/ auto diff hematocrit 42.4 % 36.8-4 9.5 normal Not Available [address], [address], 04/09/2018 07:58:27 04/08/1904/09/2018 CBC w/ auto diff MCV 84.3 fL 80.0-1 00.0 normal Not Available [address], [address], 04/09/2018 07:58:27 04/08/1904/09/2018 CBC w/ auto diff MCH 28.2 pg 27.0-3 3.0 normal Not Available [address], [address], 04/09/2018 07:58:27 04/08/1904/09/2018 CBC w/ auto diff MCHC 33.5 g/dL 32.0-3 6.0 normal Not Available [address], [address], 04/09/2018 07:58:27 04/08/1904/09/2018 CBC w/ auto diff RDW 13.8 % 11.0-1 5.0 normal Not Available [address], [address], 04/09/2018 07:58:27 04/08/1904/09/2018 CBC w/ auto diff platelet count 244 thous and/u L 140-40 0 normal Not Available [address], [address], 04/09/2018 07:58:27 04/08/1904/09/2018 CBC w/ auto diff MPV 9.7 fL 7.5-12 .5 normal Not Available [address], [address], 04/09/2018 07:58:27 04/08/1904/09/2018 CBC w/ auto diff absolute neutrophils 2535 cells /uL 1500-7 800 normal Not Available [address], [address], 04/09/2018 07:58:27 04/08/1904/09/2018 CBC w/ auto diff absolute lymphocytes 1601 cells /uL 850-39 00 normal Not Available [address], [address], 04/09/2018 07:58:27 04/08/1904/09/2018 CBC w/ auto diff absolute monocytes 368 cells /uL 200-95 0 normal Not Available [address], [address], 04/09/2018 07:58:27 04/08/1904/09/2018 CBC w/ auto diff absolute eosinophils 78 cells /uL 15-500 normal Not Available [address] [address] [place], [address], 04/09/2018 07:58:27 04/08/1904/09/2018 CBC w/ auto diff absolute basophils 18 cells /uL 0-200 normal Not Available [address] [place], [address], 04/09/2018 07:58:27 04/08/1904/09/2018 CBC w/ auto diff neutrophils 55.1 % normal Not Available [address] [address] [place], [address], 04/09/2018 07:58:27 04/08/1904/09/2018 CBC w/ auto diff lymphocytes 34.8 % normal Not Available [address] [address] [place], [address], 04/09/2018 07:58:27 04/08/1904/09/2018 CBC w/ auto diff monocytes 8.0 % normal Not Available [address] [place], [address], 04/09/2018 07:58:27 04/08/1904/09/2018 CBC w/ auto diff eosinophils 1.7 % normal Not Available [address] [address] [place], [address], 04/09/2018 07:58:27 04/08/1904/09/2018 CBC w/ auto diff basophils 0.4 % normal Not Available [address] [address] [place], [address], 04/09/2018 07:58:27 04/09/1904/09/2018 elect rocar diogr am Rhythm Hernan SR Not Available In-House Results For Internal Use Only, Do Not Delete/merge, [id number] 04/08/2018 15:21:53 04/09/1904/09/2018 elect rocar diogr am [place] WNL Not Available In-House Results For Internal Use Only, Do Not Delete/merge, [id number] 04/08/2018 15:21:53 04/09/1904/09/2018 elect florencio bunrsgr am DE 180ms Not Available In-House Results For Internal Use Only, Do Not Delete/merge, [id number] 04/08/2018 15:21:53 04/09/19 19 04/09/2018 elect florencio burnsgr am QRS 92ms Not Available In-House Results For Internal Use Only, Do Not Delete/merge, [id number] 04/08/2018 15:21:53 04/09/1904/09/2018 elect rocclaude diogr am R Wave Progression Normal Not Available In-H ouse Results For Internal Use Only, Do Not Delete/merge, [id number] 04/08/2018 15:21:53 04/09/1904/09/2018 elect florencio burnsgr am Overall Interpretati on normal Not Available In-Patti se Results For Internal Use Only, Do Not Delete/merge, [id number] 04/08/2018 15:21:53 04/12/1904/13/2018 BMP, serum or plasm a glucose 100 mg/dL 65-99 high Fasti ng refer ence inter mary For someo ne witho ut known diabe rakan, a gluco se value betwe en 100 and 125 mg/dL is consi stent with predi abete s and shoul d be confi rmed with a follo w-up test. Not Available [employer] [facility] [address] [place], [address], 04/13/2018 09:32:48 04/12/1904/13/2018 BMP, serum or plasm a urea nitrogen (BUN) 21 mg/dL 7-25 normal Not Available [employer] [facility] [address] [place], [address], 04/13/2018 09:32:48 04/12/1904/13/2018 BMP, serum or plasm a creatinine 0.74 mg/dL 0.50-0 .99 normal For patie nts >49 years of age, the refer ence limit for Creat inine is appro ximat angus 13% highe r for peopl e ident ified as Afric an-Am nany n. Not Available [address] [address] [place], [address], 04/13/2018 09:32:48 04/12/1904/13/2018 BMP, serum or plasm a eGFR non-afr. uruguayan 86 mL/mi n/1.7 3m2 > or = 60 normal Not Available [facility] [address] [address] [place], [address], 04/13/2018 09:32:48 04/12/1904/13/2018 BMP, serum or plasm a eGFR 99 mL/mi n/1.7 3m2 > or = 60 normal Not Available [address] [address] [place], [address], 04/13/2018 09:32:48 04/12/1904/13/2018 BMP, serum or plasm a BUN/creatini ne ratio NOT APPLIC ABLE (calc ) 6-22 Not Available [address] [address] [place], [address], 04/13/2018 09:32:48 04/12/1904/13/2018 BMP, serum or plasm a sodium 138 mmol/ L 135-14 6 normal Not Available [facility] [address] [address] [place], [address], 04/13/2018 09:32:48 04/12/1904/13/2018 BMP, serum or plasm a potassium 3.8 mmol/ L 3.5-5. 3 normal Not Available [facility] [address] [address] [place], [address], 04/13/2018 09:32:48 04/12/1904/13/2018 BMP, serum or plasm a chloride 101 mmol/ L 98-110 normal Not Available [address] [address] [place], [address], 04/13/2018 09:32:48 04/12/1904/13/2018 BMP, serum or plasm a carbon dioxide 28 mmol/ L 18-30 normal Not Available [address], [address], 04/13/2018 09:32:48 04/12/1904/13/2018 BMP, serum or plasm a calcium 9.3 mg/dL 8.6-10 .4 normal Not Available [address], [address], 04/13/2018 09:32:48 12/04/1912/04/2018 lipid panel , serum cholesterol, total 182 mg/dL <200 normal Not Available [address], [address], 12/04/2018 09:31:36 12/04/1912/04/2018 lipid panel , serum HDL cholesterol 56 mg/dL >50 normal Not Available [address], [address], 12/04/2018 09:31:36 12/04/1912/04/2018 lipid panel , serum triglyceride s 167 mg/dL <150 high Not Available [address], [address], 12/04/2018 09:31:36 12/04/1912/04/2018 lipid panel , serum [...] Julienne carolina SS et al. ENRIQUETA. 2013; 310(9 4): 2061- 2068 (http ://ed ucati on.Qu Edilma diazGrid2Homes. com/f aq/FA Q164) Not Available [address], [address], 12/04/2018 09:31:36 12/04/1912/04/2018 lipid panel , serum chol/HDLC ratio 3.3 (calc ) <5.0 normal Not Available [address] [place], [address], 12/04/2018 09:31:36 12/04/1912/04/2018 lipid panel , serum non HDL cholesterol 126 mg/dL _(param c) <130 normal For patie nts with diabe rakan plus 1 major ASCVD risk facto r, treat ing to a non-H DL-C goal of <100 mg/dL (LDL- C of <70 mg/dL ) is consi dered a thera peuti c optio n. Not Available [address], [address], 12/04/2018 09:31:36 12/04/1912/04/2018 BMP, serum or plasm a glucose 95 mg/dL 65-99 normal Fasti ng refer ence inter mary Not Available [address], [address], 12/04/2018 09:31:37 12/04/1912/04/2018 BMP, serum or plasm a urea nitrogen (BUN) 11 mg/dL 7-25 normal Not Available [address] [place], [address], 12/04/2018 09:31:37 12/04/1912/04/2018 BMP, serum or plasm a creatinine 0.75 mg/dL 0.50-0 .99 normal For patie nts >49 years of age, the refer ence limit for Creat inine is appro ximat angus 13% highe r for peopl e ident ified as Afric an-Am nany n. Not Available [address] [address] [place], [address], 12/04/2018 09:31:37 12/04/1912/04/2018 BMP, serum or plasm a eGFR non-afr. uruguayan 84 mL/mi n/1.7 3m2 > or = 60 normal Not Available [facility] [address] [address] [place], [address], 12/04/2018 09:31:37 12/04/1912/04/2018 BMP, serum or plasm a eGFR 98 mL/mi n/1.7 3m2 > or = 60 normal Not Available [facility] [address], [address], 12/04/2018 09:31:37 12/04/1912/04/2018 BMP, serum or plasm a BUN/creatini ne ratio NOT APPLIC ABLE (calc ) 6-22 Not Available [address] [address] [place], [address], 12/04/2018 09:31:37 12/04/1912/04/2018 BMP, serum or plasm a sodium 139 mmol/ L 135-14 6 normal Not Available [address] [address] [place], [address], 12/04/2018 09:31:37 12/04/1912/04/2018 BMP, serum or plasm a potassium 3.6 mmol/ L 3.5-5. 3 normal Not Available [facility] [address] [address] [place], [address], 12/04/2018 09:31:37 12/04/1912/04/2018 BMP, serum or plasm a chloride 100 mmol/ L 98-110 normal Not Available [facility] [address] [address] [place], [address], 12/04/2018 09:31:37 12/04/1912/04/2018 BMP, serum or plasm a carbon dioxide 29 mmol/ L 18-30 normal Not Available [address], [address], 12/04/2018 09:31:37 12/04/1912/04/2018 BMP, serum or plasm a calcium 9.6 mg/dL 8.6-10 .4 normal Not Available [address], [address], 12/04/2018 09:31:37 12/04/1912/04/2018 hepat ic funct ion panel , serum protein, total 7.0 g/dL 6.1-8. 1 normal Not Available [address], [address], 12/04/2018 09:31:37 12/04/1912/04/2018 hepat ic funct ion panel , serum albumin 4.8 g/dL 3.6-5. 1 normal Not Available [address], [address], 12/04/2018 09:31:37 12/04/1912/04/2018 hepat ic funct ion panel , serum globulin 2.2 g/dL_ (calc ) 1.9-3. 7 normal Not Available [address], [address], 12/04/2018 09:31:37 12/04/1912/04/2018 hepat ic funct ion panel , serum albumin/glob ulin ratio 2.2 (calc ) 1.0-2. 5 normal Not Available [address], [address], 12/04/2018 09:31:37 12/04/1912/04/2018 hepat ic funct ion panel , serum bilirubin, total 0.6 mg/dL 0.2-1. 2 normal Not Available [address], [address], 12/04/2018 09:31:37 12/04/1912/04/2018 hepat ic funct ion panel , serum bilirubin, direct 0.1 mg/dL < or = 0.2 normal Not Available [address], [address], 12/04/2018 09:31:37 12/04/1912/04/2018 hepat ic funct ion panel , serum bilirubin, indirect 0.5 mg/dL _(param c) 0.2-1. 2 normal Not Available [address], [address], 12/04/2018 09:31:37 12/04/1912/04/2018 hepat ic funct ion panel , serum alkaline phosphatase 77 U/L 33-130 normal Not Available [address], [address], 12/04/2018 09:31:37 12/04/1912/04/2018 hepat ic funct ion panel , serum AST 22 U/L 10-35 normal Not Available [address], [address], 12/04/2018 09:31:37 12/04/1912/04/2018 hepat ic funct ion panel , serum ALT 26 U/L 6-29 normal Not Available [address], [address], 12/04/2018 09:31:37 12/04/1912/04/2018 CBC w/ auto diff white blood cell count 4.1 thous and/u L 3.8-10 .8 normal Not Available [address], [address], 12/04/2018 09:31:38 12/04/1912/04/2018 CBC w/ auto diff red blood cell count 4.81 ajay on/uL 3.96-5 .31 normal Not Available [address], [address], 12/04/2018 09:31:38 12/04/1912/04/2018 CBC w/ auto diff hemoglobin 13.6 g/dL 12.0-1 6.3 normal Not Available [address], [address], 12/04/2018 09:31:38 12/04/1912/04/2018 CBC w/ auto diff hematocrit 42.4 % 36.8-4 9.5 normal Not Available [address], [address], 12/04/2018 09:31:38 12/04/1912/04/2018 CBC w/ auto diff MCV 88.1 fL 80.0-1 00.0 normal Not Available [address], [address], 12/04/2018 09:31:38 12/04/1912/04/2018 CBC w/ auto diff MCH 28.3 pg 27.0-3 3.0 normal Not Available [address], [address], 12/04/2018 09:31:38 12/04/1912/04/2018 CBC w/ auto diff MCHC 32.1 g/dL 32.0-3 6.0 normal Not Available [address], [address], 12/04/2018 09:31:38 12/04/1912/04/2018 CBC w/ auto diff RDW 14.4 % 11.0-1 5.0 normal Not Available [address], [address], 12/04/2018 09:31:38 12/04/1912/04/2018 CBC w/ auto diff platelet count 235 thous and/u L 140-40 0 normal Not Available [address] [place], [address], 12/04/2018 09:31:38 12/04/1912/04/2018 CBC w/ auto diff MPV 9.5 fL 7.5-12 .5 normal Not Available [address], [address], 12/04/2018 09:31:38 12/04/1912/04/2018 CBC w/ auto diff absolute neutrophils 2333 cells /uL 1500-7 800 normal Not Available [address], [address], 12/04/2018 09:31:38 12/04/1912/04/2018 CBC w/ auto diff absolute lymphocytes 1402 cells /uL 850-39 00 normal Not Available [address], [address], 12/04/2018 09:31:38 12/04/1912/04/2018 CBC w/ auto diff absolute monocytes 262 cells /uL 200-95 0 normal Not Available [address], [address], 12/04/2018 09:31:38 12/04/1912/04/2018 CBC w/ auto diff absolute eosinophils 82 cells /uL 15-500 normal Not Available [address], [address], 12/04/2018 09:31:38 12/04/1912/04/2018 CBC w/ auto diff absolute basophils 21 cells /uL 0-200 normal Not Available [address], [address], 12/04/2018 09:31:38 12/04/1912/04/2018 CBC w/ auto diff neutrophils 56.9 % normal Not Available [address], [address], 12/04/2018 09:31:38 12/04/1912/04/2018 CBC w/ auto diff lymphocytes 34.2 % normal Not Available [address], [address], 12/04/2018 09:31:38 12/04/1912/04/2018 CBC w/ auto diff monocytes 6.4 % normal Not Available [address], [address], 12/04/2018 09:31:38 12/04/1912/04/2018 CBC w/ auto diff eosinophils 2.0 % normal Not Available [address], [address], 12/04/2018 09:31:38 12/04/1912/04/2018 CBC w/ auto diff basophils 0.5 % normal Not Available [address], [address], 12/04/2018 09:31:38 12/04/1912/04/2018 TSH, serum or plasm a TSH 2.74 mIU/L 0.40-4 .50 normal Not Available [address], [address], 12/04/2018 09:31:38 12/04/1912/04/2018 vitam in D, 25-hy [...] /MS is recom fab d: order code 08150 (lilian ents >2yrs ). For more infor lorin carolina on this test, go to: http: //[facility] carolina.jes stdia gnost ics.c om/fa q/FAQ 163 (This link is being provi ded for infor matio nal/e ducat ional purpo ses only. ) Not Available [employer] [address] [address] [place], [address], 12/04/2018 09:31:39 02/05/2002/05/2019 vitam in D, 25-hy [...] /MS is recom fab d: order code 04955 (lilian ents >2yrs ). For more infor lorin carolina on this test, go to: http: //[facility] stdia gnost ics.c om/fa q/FAQ 163 (This link is being provi ded for infor matio nal/e ducat ional purpo ses only. ) Not Available [employer] [facility] [address] [place], [address], 02/05/2019 10:01:59 04/01/19 19 04/01/2018 MAMMO , scree eula, tomos ynthe sis, bilat eral, w/ CAD EXAM: TOMOSY NTHESI S SCREEN ING MAMMOG MONIE W CAD 22263 INDICA TION: Routin e screen ing. Histor [...] reted by Derek Barr M.D., a fellow [facility] breast imagin g specia list with [facility] [place] [facility]. Slot 48 Electr onical ly signed by: Derek Barr M.D. 04/01/19 19 1:14 PM Interp reting Radiol ogist: Derek Barr CC: Thank you for visiti ng our imagin g center . [facility] [address], [place], [address], 04/01/2018 21:09:47 04/12/19 19 elect florencio diogr am No observ ation record ed. [email or web address] In-House Results For Internal Use Only, Do Not Delete/merge, [id number] 04/15/2018 12:36:57 08/08/19 21 08/07/2020 MAMMO , elham wynng, tomos ynthe sis, bilat eral, w/ CAD EXAMIN ATION: TOMOSY NTHESI S SCREEN ING MAMMOG MONIE W CAD 15968, 021 11:10 AM CLINIC AL INDICA TION: [...] result s will be mailed to the klelee cramer and a remind er letter will be sent when she is due for her next mammog monie. This examin ation was interp reted by Kevin yeboah M.D., a fellow [facility] breast imagin g specia list with [facility] [place] [facility]. Slot 41 Electr onical ly signed by: Kevin yeboah 021 2:11 PM Interp reting Radiol ogist: SACHA YEBOAH CC: Thank you for visiti ng our imagin g center . [facility] [address], [place], [address], 08/07/2020 21:30:26 Result Notes None recorded. Problems Name Problem SNOMED Code Status Onset Date Resolution Date Notes Provider Name and Address Organization Details Recorded Time Benign hyperten shanae 70682972 Active 2016 Digna bergeron [facility] 9 11:00:18 Labile hyperten shanae due to being in a clinical environm ent 811930689 Completed 201602/04/2019 Tiarra Wilhelm PA-C [address] [place], [address] [place] [address] 9 11:48:41 Papillom a 038613141 Active 2016 left breast w/ calcifica tions Digna bergeron [facility] 9 11:00:18 Dry eyes 338957815 [facility] 9 11:00:18 Family history of cancer of colon 685416274 Active 2017 Father Digna bergeron [facility] 9 11:00:18 Vitamin D deficien cy 71231516 Active 2017 [facility] 9 11:00:18 Problem Notes None recorded. Procedures Surgical History Date Name Laterality Status Provider Name and Address Organization Details Recorded Time 08/08/19 21 Date of Last Mammogram completed Tiarra Wilhelm PA-C [address] [place], [address], [facility] 08/07/2020 18:17:04 04/15/19 19 Orthopaedic Surgery completed Tiarra Wilhelm PA-C [address] [place], [address], [facility] 02/04/2019 11:34:02 08/12/19 18 Cerumen Removal w/instrumentation completed Tiarra Wilhelm PA-C [address] [place], [address], [facility] 08/11/2017 12:00:42 03/30/19 13 Colonoscopy completed Tiarra Wilhelm PA-C [address], [address], [facility] 04/30/2016 16:29:50 03/30/18 79 Other completed Tiarra Wilhelm PA-C [address] [place], [address], [facility] 04/30/2016 16:30:22 Breast Biopsy completed [facility] 04/30/2016 16:09:44 [facility] 04/[facility] 16:09:44 Imaging Results Imaging Date Name Status LastModified by Organization Details LastModified Time 04/01/2018 MAMMO, screening, tomosynthesis, bilateral, w/ CAD completed [place] [address], [place], [address], 04/01/2018 21:09:47 04/12/2018 electrocardiogram completed [email or web address] In-Hous e Results For Internal Use Only, Do Not Delete/merge, [id number] 04/15/2018 12:36:57 08/07/2020 MAMMO, screening, tomosynthesis, bilateral, w/ CAD completed [facility] [address], [place], [address], 08/07/2020 21:30:26 Procedure Notes None recorded. Medical Equipment None Reported. Allergies Allergen ID Allergen Name Allergen Category Reaction Reaction Severity Criticality Documentation Date Start Date Code Code System Note Provider Name and Address Organization Details Recorded Time 54994 Substance with sulfonami de structure and antibacte rial mechanism of action (substanc e) medicatio n nausea Not available Not available 04/30/2016 07544 8003 SNOMED Digna Cottrell [facility] 7 16:17:15 86201 Betadine medicatio n rash Not available Not available 08/11/2017 88591 0 RxNorm Tiarra Wilhelm PA-C [address] [place], [address] [place] [address] 8 10:48:40 05211 sodium glutamate food Not available Not available Not available 02/04/20192018 07242 88 RxNorm Digna Cottrell [facility] 9 11:00:06 [address]228 povidone- iodine medicatio n rash severe Not available 02/04/20192018 8611 RxNorm Digna bergeron [facility] 9 11:00:06 Medications Name Sig Start Date [...] Details Last Updated DateTime 7 165.1 cm 93288.2 4 g 31.8 kg/m2 97.3 [degF] 96 % 96 % 56 /min 16 /min 138 mm[Hg] 86 mm[Hg] Digna Cottrell [facility] 7 16:13:31 Date Recorded Body height Body mass index (BMI) Body weight Heart rate Oxygen saturation Oxygen saturation in Arterial blood by Pulse oximetry Respiratory rate Body temperature Systolic blood pressure Diastolic blood pressure Provider Name and Address Organization Details Last Updated DateTime 8 165.1 cm 32.8 kg/m2 93549.4 g 72 /min 97 % 97 % 16 /min 97.8 [degF] 132 mm[Hg] 80 mm[Hg] Digna Cottrell [facility] 8 10:29:59 Date Recorded Body height Body mass index (BMI) Body weight Body temperature Respiratory rate Oxygen saturation Oxygen saturation in Arterial blood by Pulse oximetry Heart rate Systolic blood pressure Diastolic blood pressure Provider Name and Address Organization Details Last Updated DateTime 9 165.1 cm 32.2 kg/m2 10765.7 3 g 97.8 [degF] 16 /min 97 % 97 % 65 /min 132 mm[Hg] 80 mm[Hg] Digna Cottrell [facility] 9 15:12:02 Date Recorded Body height Body mass index (BMI) Body weight Body temperature Respiratory rate Oxygen saturation Oxygen saturation in Arterial blood by Pulse oximetry Heart rate Systolic blood pressure Diastolic blood pressure Provider Name and Address Organization Details Last Updated DateTime 9 165.1 cm 32.3 kg/m2 00889.3 2 g 97.7 [degF] 16 /min 98 % 98 % 83 /min 132 mm[Hg] 80 mm[Hg] Digna Cottrell [facility] 9 11:14:02 Social History Question Answer Notes LastModified by Organizat ion Details LastModified Time Tobacco Smoking Status Never Smoker Digna Cottrell elyssa [facility] 04/30/2016 16:09:39 Do You Have An Advance Directive? No Information not available 04/30/2016 What Is Your Level Of Alcohol Consumption? Occasional [email or web address] Information not available 04/30/2016 What Is Your Level Of Caffeine Consumption? Occasional Information not available 04/30/2016 What Type Of Diet Are You Following? REGULAR [email or web address] Information not available 04/30/2016 Live Alone Or With Others? With Others Information not available 04/30/2016 Marital Status Information not available 04/30/2016 What Was The Date Of Your Most Recent Tobacco Screening? 02/04/2019 Information not available 02/04/2019 How Many Children Do You Have? 2 [email or web address] Information not available 04/30/2016 Do You Have Any Siblings? YANELY Information not available 04/30/2016 Smoke Alarm In Home Yes [email or web address] Information not available 04/30/2016 How Much Tobacco Do You Smoke? No [email or web address] Information not available 04/30/2016 General Stress Level Medium However, Mar 2016 Has Been Extremely High Stress Information not available 04/30/2016 How Many Years Have You Smoked Tobacco? 0 Information not available 04/30/2016 Sex: Unknown Functional Status Question Answer Note LastModified by Organization D etails LastModified Time What is your exercise level? Moderate [email or web address] Information not available 04/30/2016 Mental Status None recorded. Family History Relationship Description Onset Age of this Age Resolved Age Notes LastModified by Organization Details LastModified Time Paternal Grandfather Hypertensive disorder [email or web address] Not available 2016 16:09:24 Father Heart disease [email or web address] Not available 2016 16:09:24 Father Myocardial infarction [email or web address] Not available 04/30 16:09:24 Father Hypertensive disorder [email or web address] Not available 2016 16:09:24 Father Family history of cancer of colon 74 [email or web address] Not available 2017 10:18:18 Mother Diabetes mellitus [email or web address] Not available 2016 16:09:24 Mother Hypertensive disorder [email or web address] Not available 2016 16:09:24 Mother Aneurysm 63 [email or web address] Not available 08/11/2017 10:18:18 Unspecified Relation Hypertensive disorder [email or web address] Not available 2016 16:09:24 Paternal Grandmother Diabetes mellitus [email or web address] Not available 2016 16:09:24 Medical History Condition Response Coronary Artery Disease N Other N Gout N Kidney Stones N Blood Diseases N Hyperthyroidism N Emphysema N Hypothyroidism N Depression N COPD N Developmental or Behavioral Disorders N Eczema, [...] Tuberculosis N Chronic Pain N Diverticulitis N Asthma N Allergies N Sleep Disorder N GERD/Reflux N Heart [...] SNOMED-CT Code Diagnosis ICD10 Code Diagnosis Note [id number] Jennifer Almanzar M.D. [facility] [address] [place] [phone] 04/30/2016 15:33:06 04/30/2016 16:45:14 Breast lump 39828836 N63 Benign hypertension 1072 5009 I10 Papilloma 904595338 D36. 9 [id number] Jennifer Almanzar M.D. [facility] [address] [place] [phone] 08/11/2017 10:03:09 08/11/2017 11:11:37 Family history of cancer of colon 169001094 Z80.0 Body mass index 30+ - obesity 213837322 Z68.39 Vitamin D deficiency 347 29956 E55.9 Senile hyperkeratosis 39 8275789 L82.1 Benign hypertension 1072 5009 I10 Gynecologi c examination 23413577 Z01.419 Impacted cerumen 0251814 6 H61.22 [id number] Jennifer Almanzar M.D. [facility] [address] [place] [phone] 04/08/2018 15:01:35 04/08/2018 15:38:06 Pre-surgery evaluation 654769489 Z01.818 Vitamin D deficiency 347 55176 E55.9 Hallux mary pillo AND bunion [id number] M20.11 [id number] Jennifer Almanzar M.D. [facility] [address] [place] [address] 02/04/2019 10:49:13 02/04/2019 11:49:11 Localized, primary osteoarthritis of the ankle and/or foot 378292054 M19.071 M19.072 Vitamin D deficiency 347 76468 E55.9 Gynecologi c examination 72068638 Z01.419 Benign hypertension 1072 5009 I10 Medication review done [id number] Z76.89 Body mass index 30+ - obesity [id number] Z68.32 Health Concerns Section Related Observation LastModified by Organization Detai ls LastModified Time None Recorded Concern Status LastModified by Organization Details LastModified Time None Recorded Advance Directives Directive N: Payers Encounter Date Sequence Insurance Name Policy Number Policy Matt Covered Member ID Matt Member ID Guarantor Name 04/30/2016 1 [facility] [id number] Debbie Tran [id number] Debbie Tran 08/11/2017 1 [facility] [id number] Debbie Tran [id number] Debbie rTan 04/08/2018 1 [facility] [id number] Debbie Tran [id number] Debbie Tran 02/04/2019 1 [facility] [id number] Debbie Tran [id number] Debbie Marc Notes Date Note Type Note Provider Name and Address Organization Details Recorded Time 04/30/2016 text/html Chronic IllnessReported bypatient.Context:Hyp ertension Onset/Timing:Chronic Qualitystable Medications:taking medications as directed; no side effects from medication Associated Signs and Symptomsnone reported Tiarra Wilhelm PA-C [address] [place], [address], [facility] 04/30/2016 17:59:30 08/11/2017 text/html Annual [facility] ed bypatient.History:[place] t PAP (02/22/2016) Menstrual cycle:history [...] her upper extremity. Tiarra Wilhelm PA-C [address] [place], [address], [facility] 08/11/2017 12:12:24 04/08/2018 text/html Pre-OpReported bypatient.Visit For:examination: pre-operative exam Surgerydate: 9; surgery site:right foot -bunion, tendon, adjusting calcaneus; reason for surgery:Foot surgery Procedure preparation/procedura l support:EKG; lab work (CBC AND CMP); other:EKGNotes:Fax results to Stephanie at [phone] Tiarra Wilhelm PA-C [address] [place], [address], [facility] 04/08/2018 15:40:31 02/04/2019 text/html Annual [facility] [...] arthritis in both feet. Tiarra Wilhelm PA-C [address] [place], [address], [facility] 02/04/2019 12:30:13 OBGyn Episode No OBEpisode recorded.
--- NOTE | 2024-09-08 11:27 | P.CONAN_ITS ---
Documented by User: Emmie Cash NP 09/08/24 11:27 HPI - Anesthesia Eval Consult details Narrative: 69yo F for Colonoscopy PMFSH Active Problems Active Problems: All Active Problems GERD (gastroesophageal reflux disease) (Acute) Past Medical History Medical History GERD (gastroesophageal reflux disease) HTN (hypertension) Family History Family History (Updated 05/18/24 @ 09:43 by Sandra Dalton) Mother HTN (hypertension) Brother HTN (hypertension) Alcoholic Father HTN (hypertension) Colon cancer Surgical History Surgical History History of foot surgery Hx of hemorrhoidectomy Hx of ovarian cystectomy Hx of colonoscopy Social History Social History (Updated 05/18/24 @ 09:44 by Sandra Dalton) Household Members: Spouse Are you a primary health care marketing specialist to a significant other at home: No Do you presently have visiting nurse or other home services: No Alcohol intake: current Alcohol intake frequency: does not drink Patient Tobacco Use Status: Never used Tobacco Use of substances other than those prescribed or required for medical reasons: No Have you been hit, kicked, punched, or otherwise hurt by someone within the past year? If so, by whom?: No Are you DNR?: No Advance Directives: No Advance Directives Information Provided: Yes Meds Allergies Allergy/AdvReac Type Severity Reaction Status Date / Time monosodium glutamate Allergy Unknown Unknown Verified 09/09/24 10:25 povidone-iodine Allergy Unknown Unknown Verified 09/09/24 10:25 [From Betadine] Sulfa (Sulfonamide Allergy Unknown Unknown Verified 09/09/24 10:25 Antibiotics) Home Medications ?Medication ?Instructions ?Recorded ?Confirmed ?Last Taken ?Type lifitegrast 5 % eye drops in a drp ophthalmic (eye) Q12H PRN 05/13/24 Unknown History dropperette (Xiidra) lisinopril 20 1 tab PO DAILY 05/13/24 09/09/24 09/09/24 History mg-hydrochlorothiazide 25 mg tablet metoprolol succinate 50 mg 50 mg PO DAILY 05/13/24 09/09/24 09/09/24 History tablet,extended release 24 hr cholecalciferol (vitamin D3) 50 50 mcg PO DAILY 05/18/24 Unknown History mcg (2,000 unit) capsule Assessment and Plan Assessment Anesthesia Assessment: Chart Reviewed Documented by User: Carlos Enrique Montenegro MD 09/09/24 10:47 [facility] Past Medical History Medical History GERD (gastroesophageal reflux disease) HTN (hypertension) Family History Family History (Updated 05/18/24 @ 09:43 by Sandra Dalton) Mother HTN (hypertension) Brother HTN (hypertension) Alcoholic Father HTN (hypertension) Colon cancer Family history of problems with anesthesia: No Surgical History Surgical History History of foot surgery Hx of hemorrhoidectomy Hx of ovarian cystectomy Hx of colonoscopy History of Problems with Anesthesia: No Social History Social History (Updated 05/18/24 @ 09:44 by Sandra Dalton) Household Members: Spouse Are you a primary health care marketing specialist to a significant other at home: No Do you presently have visiting nurse or other home services: No Alcohol intake: current Alcohol intake frequency: does not drink Patient Tobacco Use Status: Never used Tobacco Use of substances other than those prescribed or required for medical reasons: No Have you been hit, kicked, punched, or otherwise hurt by someone within the past year? If so, by whom?: No Are you DNR?: No Advance Directives: No Advance Directives Information Provided: Yes Meds Allergies Allergy/AdvReac Type Severity Reaction Status Date / Time monosodium glutamate Allergy Unknown Unknown Verified 09/09/24 10:25 povidone-iodine Allergy Unknown Unknown Verified 09/09/24 10:25 [From Betadine] Sulfa (Sulfonamide Allergy Unknown Unknown Verified 09/09/24 10:25 Antibiotics) Home Medications ?Medication ?Instructions ?Recorded ?Confirmed ?Last Taken ?Type lifitegrast 5 % eye drops in a drp ophthalmic (eye) Q12H PRN 05/13/24 Unknown History dropperette (Xiidra) lisinopril 20 1 tab PO DAILY 05/13/24 09/09/24 09/09/24 History mg-hydrochlorothiazide 25 mg tablet metoprolol succinate 50 mg 50 mg PO DAILY 05/13/24 09/09/24 09/09/24 History tablet,extended release 24 hr cholecalciferol (vitamin D3) 50 50 mcg PO DAILY 05/18/24 Unknown History mcg (2,000 unit) capsule Exam Airway Mallampati Class: III TM Dist: >3cm Neck ROM: Full Assessment and Plan Assessment Anesthesia Assessment: Anesthesia Plan Discussed Final Anesthetic Review Family History of Problems with Anesthesia: No History of Problems with Anesthesia: No NPO: Yes ASA Class: II Final Preanesthetic Review: No Changes in Pt Med Stat, Meds/Allgs Chart Reviewed, Consent Obtained/Reviewed and Anes Risks/Benef Reviewed Patient Risk: Intermediate Procedure Risk: Low Anesthetic Plan Anesthetic Plan: TIVA Disposition: Standard PACU
[2024-09-09 10:27] VITALS: BP 174/67; PULSE 64; RESP 14; TEMP 37.2; O2SAT 100; BMI 30.1
--- NOTE | 2024-09-09 10:36 | MHC.SHP ---
Pre-Procedural Eval Section A - 24 Hr Update-Section A only Date of Service: 09/09/24 The patient is an INPATIENT: No The patient has been examined within 24 hours of the surgical procedure. The History & Physical has been completed within 30 days and I have reviewed it.: No Section B - Complete if H&P > 30 days Chief Complaint: screening,gerd, Relevant Family History (Specify if Yes): No Relevant Social History: None Present Medications: see Short Stay Collaborative assessment Medical History: Significant History (GERD, hypertension) History of Previous Operations: Relevant previous surgery/procedure and date(s) (History of foot surgery Hx of hemorrhoidectomy Hx of ovarian cystectomy Hx of colonoscopy) Allergies: Allergies Allergy/AdvReac Type Severity Reaction Status Date / Time monosodium glutamate Allergy Unknown Unknown Verified 09/09/24 10:25 povidone-iodine Allergy Unknown Unknown Verified 09/09/24 10:25 [From Betadine] Sulfa (Sulfonamide Allergy Unknown Unknown Verified 09/09/24 10:25 Antibiotics) Review of Systems Sugical H&P ROS: Negative: Constitution, Cardiovascular, Respiratory and Gastrointestinal Exam Surgical H&P Exam: Normal: Heart, Normal: Lungs, Normal: Extremities and Normal: Abdomen Plan Diagnosis/Plan: Change (Proceed with Colonoscopy (EGD was not approved by her insurance)) I have reviewed the history and physical and performed a pertinent physical examination on my patient. No changes have occurred unless specified. Time Spent With Patient Time: Total time managing care of this patient today ____ minutes.
[2024-09-09] MEDS: Lactated Ringers 1,000 ML 100 ML IVCONT (10:42)
--- NOTE | 2024-09-09 11:30 | HO.OPN-COLON ---
Colonoscopy Operative Note Operative Note Date of Service: 09/09/24 Narrative: COLONOSCOPY TILL CECUM WITH BIOPSIES AND SNARE POLYPECTOMY Pre-op diagnosis: Colon cancer screening. Post-op diagnosis:? Colon polyps, Diverticulosis, hemorrhoids Endoscopist:? Stephanie Richard MD Anesthesia:?MAC Consent: Indications for the procedure and potential complications of bleeding, perforation, reaction to medications and missed diagnosis were discussed with the patient and informed consent was obtained. Instrument: Olympus PCF H 190 L variable stiffness pediatric colonoscope Monitoring: Vital signs and clinical assessment, intermittent blood pressure monitoring, continuous EKG monitoring, Pulse oximetry and Carbon Dioxide monitoring were done throughout the procedure. Please see anesthesia flowsheet. Colon withdrawl time was 25 minutes. Procedure: The patient was placed in the left lateral decubitis position and pre-procedure medications were administered. After a digital rectal examination of the ano-rectum, the video colonoscope was inserted into the rectum and advanced through the colon to the cecum. The colonoscope was slowly withdrawn in a retrograde panoramic fashion and the colon mucosa was carefully examined including a retroflexed view of the rectum. Findings and interventions are described below. Procedure Difficulty: Colon was long and tortuous and there was some loop formation Findings: Terminal Ileum: Not evaluated Cecum: Normal Ascending Colon: Normal Transverse Colon: A 3-4 mm sessile polyp in the proximal TC - removed with a cold biopsy Descending Colon: Moderate diverticulosis Sigmoid Colon: Moderate diverticulosis Rectum: A 5-6 mm diminutive appearing polyp removed with a cold snare. Ano-rectum: Moderate internal hemorrhoids Colon preparation: Good after copious irrigation. [place] Bowel Preparation Scale Right colon; 2 Transverse colon: 2 Left colon; 2 (0 = Unprepared colon segment with mucosa not seen due to solid stool that cannot be cleared. 1 = Portion of mucosa of the colon segment seen, but other areas of the colon segment not well seen due to staining, residual stool and/or opaque liquid. 2 = Minor amount of residual staining, small fragments of stool and/or opaque liquid, but mucosa of colon segment seen well. 3 = Entire mucosa of colon segment seen well with no residual staining, small fragments of stool or opaque liquid) Impression and Post Procedure Diagnosis: Colonoscopy Findings: Two small polyps were removed Moderate diverticulosis seen in the left colon Moderate hemorrhoids on retroflexed exam. Plan: Pt has a FU appointment on 09/23/24 with Carolyn Bryant NP Repeat Colonoscopy in 5 years if polyps are adenomatous and 10 year if polyps are hyperplastic. Above findings were reviewed with the patient and relevant handouts were given and the discharge area.
[2024-09-09 11:31] VITALS: BP 111/52; PULSE 58; RESP 14; TEMP 36.1; O2SAT 98
[2024-09-09 11:46] VITALS: BP 127/61; PULSE 51; RESP 16; TEMP 36.1; O2SAT 99
== END 2024-09-09 12:20 | disposition home or self-care (01) ==
PROVIDERS: PCP Nurse Practitioner; Visit Provider Internal Medicine Gastroenterology
PROC: 0DJD8ZZ Inspection of Lower Intestinal Tract, Via Natural or Artificial Opening Endoscopic (ICD-10-PCS; CPT 45378; principal; 2024-09-09 11:50)
DX: Z12.11 Encounter for screening for malignant neoplasm of colon (principal); K63.5 Polyp of colon; K62.1 Rectal polyp; K57.30 Diverticulosis of large intestine without perforation or abscess without bleeding; K64.8 Other hemorrhoids; K21.9 Gastro-esophageal reflux disease without esophagitis; I10 Essential (primary) hypertension; Z79.899 Other long term (current) drug therapy; Z88.2 Allergy status to sulfonamides; Z88.8 Allergy status to other drugs, medicaments and biological substances; Z91.041 Radiographic dye allergy status; Z98.890 Other specified postprocedural states
CPT/HCPCS: 45385; 45380; 88305; J2003; J2704

== ENCOUNTER → 2024-09-09 10:03 | Outpatient (BNV) | payer OTHER, SELFPAY | PROVIDERS: PCP Nurse Practitioner; Visit Provider Internal Medicine Gastroenterology | DX: Z12.11 Encounter for screening for malignant neoplasm of colon (principal); D12.3 Benign neoplasm of transverse colon; K57.90 Diverticulosis of intestine, part unspecified, without perforation or abscess without bleeding; K64.8 Other hemorrhoids; D12.8 Benign neoplasm of rectum | CPT/HCPCS: 45380; 45385 ==